=== PATIENT | male | born 1960 | race Caucasian/White ===

== ENCOUNTER 2016-06-07 13:19 | Emergency (ER) | payer MEDICAID ==
[2016-05-14 00:59] VITALS: BMI 26.9
[~2016-06-07 13:19] MED LIST: ASPIRIN81 MG PO; BAYER CHEWABLE81 MG PO; DULERA 100 MCG8.8 GM INH; HEMOCYTE PLUS C1 CAP PO; HYDRALAZINE HCL25 MG PO; HYDROCODONE-APA1 TAB PO; INHALER; IPRAT-ALBUT 0.5-3 ML INH; LASIX40 MG PO; LEVAQUIN750 MG PO; LISINOPRIL10 MG PO; MEDROL DOSE PACK4 MG PO; METOPROLOL TART50 MG; METOPROLOL TART50 MG PO; NITROSTAT0.4 MG SL; PLAVIX75 MG PO; PRAVASTATIN SOD10 MG PO; PROTONIX40 MG PO; TRAZODONE HCL50 MG PO; ZESTORETIC 20/21 TAB PO; ZPAK PO
[2016-06-07 15:04] LABS: BASOPHILS 0.4 % (0.0-2.0); EOSINOPHILS 3.6 % (0-7); HEMATOCRIT 40.2 % (42.0-54.0); HEMOGLOBIN 13.7 g/dL (13.5-17.5); IMMATURE GRANULOCYTES 0.1 % (0-5); LYMPHOCYTES 36.5 % (15-50); MCH 29.5 pg (26.0-34.0); MCHC 34.1 g/dL (31.0-37.0); MCV 86.5 fL (80.0-100.0); MEAN PLATELET VOLUME 10.1 fL (7.4-10.4); MONOCYTES 7.5 % (2-11); NEUTROPHILS 51.9 % (40-80); PLATELET COUNT 272 10x3/uL (130-400); RBC 4.65 10x6/uL (4.20-6.10); RDW 14.8 % (11.5-14.5); WBC 7.5 10x3/uL (4.8-10.8)
[2016-06-07 15:24] LABS: ALBUMIN 3.5 g/dL (3.4-5.0); ALKALINE PHOSPHATASE 52 U/L (46-116); ALT (SGPT) 26 U/L (10-68); BILIRUBIN - TOTAL 0.31 mg/dL (0.2-1.3); CALC OSMOLALITY 285 mosm/kg (275-300); CALCIUM 9.1 mg/dL (8.5-10.1); CARBON DIOXIDE 22.9 mmol/L (21.0-32.0); CHLORIDE - SERUM 106 mmol/L (98-107); CREATININE - SERUM 1.7 mg/dL (0.6-1.3); GLUCOSE 106 mg/dL (74-106); POTASSIUM - SERUM 4.1 mmol/L (3.5-5.1); PROTEIN - SERUM 7.1 g/dL (6.4-8.2); SODIUM 139 mmol/L (136-145); UREA NITROGEN 34 mg/dL (7-18); eGFR NON AFRICAN AMERICAN 45 mL/min (90-120)
[2016-06-07 15:28] LABS: TROPONIN-I < 0.017 ng/mL (0.000-0.060)
== END 2016-06-07 16:45 | disposition home or self-care (01) ==
LOC: D.ER 13:19
PROVIDERS: Emergency Medicine
DX: I95.9 Hypotension, unspecified (principal); Z95.1 Presence of aortocoronary bypass graft; I10 Essential (primary) hypertension; I25.10 Atherosclerotic heart disease of native coronary artery without angina pectoris; J44.9 Chronic obstructive pulmonary disease, unspecified

== ENCOUNTER 2016-06-23 17:40 | Observation (INO) | payer MEDICAID ==
[~2016-06-23] VITALS: Ht 180.3 cm; Wt 90.6 kg
--- NOTE | ~2016-06-23 | HEMODYNAMI ---
PATIENT:BAM DUNN MEDICAL RECORD: [id number] : 60 [id number] ADMISSION DATE: 06/23/16 Generatedon:06/24/201613:40 Patient name: BAM DUNN Patient #: [id number] SSN: DO B: 1960 Date of study: 06/24/2016 Page: Of Hemodynamic Procedure Report Patient Data Patient Demographics Procedure consent was obtained First Name: BAM Gender: Male Last Name: SHAUN : 1960 Middle Initial: D Age: 55 year(s) Patient #: [id number] Race: Additional ID: [id number] Contact details Address: [address] [address] State: [place] City: [place] Zip code: [address] Past Medical History Allergies: No known allergies Admission Admission Data Admission Date: 06/23/2016 Admission Time: 19:30 Room #: D.2115 Lab Results Lab Result Date: 06/24/2016 Lab Result Time: 0:00 Biochemistry Name Units Result Min Max BUN mg/dl 23 --(----)-* 7 18 Creatinine mg/dl 1.3 --(---*)-- 0.6 1.3 CBC Name Units Result Min Max Hemoglobin g/dl 13.7 --(*---)-- 13.5 17.5 Procedure Procedure Types Cath Procedure Diagnostic Procedure C C w/Coronaries w/Grafts Procedure Description Procedure Date Procedure Date: 06/24/2016 Procedure Start Time: 13:27 Procedure End Time: 13:37 Procedure Staff Name Function Rolando Zamora MD Performing Physician Ranjana Field RT Scrub Annie Davis RN Nurse Arsen Harris RT Network Security Consultant Grace Marin RT Monitor Procedure Data Cath Procedure Fluoroscopy Diagnostic fluoroscopy Total fluoroscopy Time: 3.1 time: 3.1 min min Diagnostic fluoroscopy Total fluoroscopy dose: 579 dose: 579 mGy mGy Contrast Material Contrast Material Type Amount (ml) Isovue 300 92 Entry Location Entry Primary Successful Side Size Upsize Upsize Entry Closure Succes sful Closure Location (Fr) 1 (Fr) 2 (Fr) Remarks Device Remarks Femoral Right 6 Fr Exoseal artery Short Estimated blood loss: 10 ml Diagnostic catheters Device Type Used For End Catheter Placement Cordis 5Fr JL 4.0 Procedure Catheter (MP) Cordis 5Fr 3DRC Catheter Procedure (MP) Cordis 5Fr Pigtail LV Angiography Catheter (MP) Procedure Complications No complications Procedure Medications Medication Administration Route Dosage Oxygen NC 2 l/min Heparin Flush Bag added to field 2 bags (1000units/500ml NS) Lidocaine 2% added to field 20 Versed I.V. 1 mg Fentanyl I.V. 50 mcg Versed I.V. 1 mg Fentanyl I.V. 50 mcg Fentanyl I.V. 50 mcg Fentanyl I.V. 50 mcg Hemodynamics Rest Heart Rate: 78 (bpm) Pressure Samples Time Site Value (mmHg) Purpose Heart Use Rate(bpm) 13:34 LV 126/14,21 Snapshot 78 13:35 AO 118/74(92) Pullback 78 13:35 LV 117/12,20 Pullback 78 Gradients Valve Time Site 1 Site 2 Mean SEP/DFP Peak To Heart Use (mmHg) (sec/min) Peak Rate (mmHg) (bpm) Aortic 13:35 LV AO 0 18 0 78 117/12,20 118/74(92) Calculations Valve P-P Mean Valve Index Valve Source Name Gradient Area Flow (cm2) Aortic 0 0 0 0 Snapshots Pre Cath Intra NCS Post Cath Vital Signs Time Heart Resp SPO2 NIBP (mmHg) Rhythm Pain Sedation Rate (ipm) (%) Status Level (bpm) 12:39:44 77 13 98 152/109(137) NSR 0 (11) 10(A) , No pain 12:43:58 76 15 97 149/107(136) NSR 0 (11) 10(A) , No pain 12:48:12 76 18 98 145/98(125) NSR 0 (11) 10(A) , No pain 12:52:22 74 15 97 132/93(107) NSR 0 (11) 10(A) , No pain 12:56:32 71 14 97 137/90(106) NSR 0 (11) 10(A) , No pain 13:00:46 71 16 96 127/85(104) NSR 0 (11) 10(A) , No pain 13:04:53 71 16 96 126/90(104) NSR 0 (11) 10(A) , No pain 13:09:03 74 16 95 126/80(108) NSR 0 (11) 10(A) , No pain 13:13:09 76 16 95 114/92(106) NSR 0 (11) 10(A) , No pain 13:17:11 73 16 95 125/91(106) NSR 0 (11) 10(A) , No pain 13:21:19 74 16 95 114/84(96) NSR 0 (11) 9(A) , No pain 13:25:24 75 15 96 120/79(104) NSR 0 (11) 9(A) , No pain 13:29:28 74 15 98 119/93(107) NSR 0 (11) 9(A) , No pain 13:33:34 78 15 97 119/83(100) NSR 0 (11) 9(A) , No pain 13:36:59 77 12 96 114/89(105) NSR 0 (11) 9(A) , No pain Medications Time Medication Route Dose Verified Delivered Reason Notes Effec tiveness by by 12:43:05 Oxygen NC 2 Rolando Annie Per l/min St. Rafa Davis RN physician 12:43:13 Heparin Flush added 2 Rolando Rolando used for Bag to bags [facility] procedure (1000units/500ml field MD BENEDICT NS) 12:43:20 Lidocaine 2% added 20ml Rolando Rolando used for to vial Pattison Pattison procedure field MD BENEDICT 13:16:32 Versed I.V. 1 mg Rolando Annie for PattisonRafa Davis RN sedation 13:16:39 Fentanyl I.V. 50 Rolando Annie for mcg PattisonRafa Davis RN sedation 13:18:38 Versed I.V. 1 mg Rolando Annie for PattisonRafa Davis RN sedation 13:18:45 Fentanyl I.V. [address] for mcg [address] Rafa Davis RN sedation 13:20:53 Fentanyl I.V. 50 Rolando Annie for mcg PattisonRafa Davis RN sedation 13:24:41 Fentanyl I.V. 50 Rolando Annie for [facility] [place] [facility]. Rafa Davis RN sedation Procedure Log Time Note 11:50:42 Arsen Harris RT(R) sent for patient. Start room use. 12:03:06 Procedure type changed to Cath procedure, Diagnostic procedure, LHC, LHC w/Coronaries w/Grafts 12:03:38 ACC Patient presents with Unstable Angina CCS Anginal Class 3--Marked limitation of physical activity, angina occurs with ordinary activity.. 12:03:40 Diagnostic Cath status Urgent 12:03:50 Time tracking: Regular hours 12:03:54 Plan of Care:Hemodynamics will remain stable., Cardiac rhythm will remain stable., Comfort level will be maintained., Respiratory function will remain adequate., Patient/ family verbilizes understanding of procedure., Procedure tolerated without complication., Recovers from procedure without complications.. 12:35:15 Patient received from Med II to CCL 1 Alert and oriented. Tansferred to table in Supine position. 12:35:16 Warm blankets applied, and khadar hugger turned on for patient comfort. 12:35:16 Correct patient and procedure confirmed by team. 12:35:19 Signed procedure consent form obtained from patient. 12:35:25 H&P Date Dictated: 06/24/2016 Within 30 days and on chart.. 12:35:27 Pre-procedure instructions explained to patient. 12:35:30 Family in waiting room. 12:35:33 Patient NPO since Midnight. 12:35:42 Patient allergic to No known allergies 12:35:46 Is the patient allergic to Iodine/contrast media? No. 12:35:52 Was the patient premedicated? No 12:35:54 Is patient on blood thinner?Yes 12:35:58 ACC The patient was administered the following blood thiners within the last 24 hours: ACCPlavix 12:36:03 Patient diabetic? No. 12:36:47 Snore? Yes 12:36:49 Sleep apnea? No 12:36:50 Deviated septum? No 12:36:52 Opens mouth fully? Yes 12:36:58 Airway obstruction? Yes COPD 12:38:37 Vital chart was started 12:40:03 Patient pain scale 0/10 ?. 12:40:14 IV patent on arrival in left forearm with 0.9% NaCl at [facility]. 12::23 Lab Result : Creatinine 1.3 mg/dl 12:: Lab Result : BUN 23 mg/dl 12:: Lab Result : Hemoglobin 13.7 g/dl 12:42:28 Lab results completed and on chart. 12:42:33 Right groin area was prepped with chlora-prep and draped in sterile fashion 12:42:36 Physician paged 12:43:05 Oxygen 2 l/min NC was given by Annie Davis RN; Per physician; 12:43:13 Heparin Flush Bag (1000units/500ml NS) 2 bags added to field was given by Rolando Zamora MD; used for procedure; 12:43:20 Lidocaine 2% 20ml vial added to field was given by Rolando Zamora MD; used for procedure; 12:53:22 Zero performed for pressure channel P1 13:16:05 Physician arrived 13:16:06 --------ALL STOP TIME OUT------ 13:16:07 Final Timeout: patient, procedure, and site verified with staff and physician. All members of the team are in agreement. 13:16:09 Right groin site verified by team. 13:16:14 Physical assessment completed. ASA score P 2 - A patient with mild systemic disease as per Rolando Zamora MD. 13:16:19 Sedation plan: IV Moderate Sedation Versed, Fentanyl 13:16:32 Versed 1 mg I.V. was given by Annie Davis RN; for sedation; 13:16:39 Fentanyl 50 mcg I.V. was given by Annie Davis RN; for sedation; 13:18:38 Versed 1 mg I.V. was given by Annie Davis RN; for sedation; 13:18:45 Fentanyl 50 mcg I.V. was given by Annie Davis RN; for sedation; 13:20:53 Fentanyl 50 mcg I.V. was given by Annie Davis RN; for sedation; 13:24:41 Fentanyl 50 mcg I.V. was given by Annie Davis RN; for sedation; 13:26:23 Zero performed for pressure channel P1 13:26:55 Use device set Femoral Dx 13:26:56 Acist Syringe opened to sterile field. 13:26:57 Bag Decanter opened to sterile field. 13:26:57 Cardinal Cath Pack opened to sterile field. 13:26:57 Terumo 5Fr [place] Sheath opened to sterile field. 13:26:58 St Erik 260cm J .035 wire opened to sterile field. 13:27:02 Acist Hand Control opened to sterile field. 13:27:03 Acist Manifold opened to sterile field. 13:27:03 Cordis Infinity 5Fr Multipack catheter opened to sterile field. 13:27:06 Tegaderm 4 x 4 opened to sterile field. 13:27:08 Procedure started. 13:27:09 Full Disclosure recording started 13:27:28 Local anesthetic to right femoral artery with Lidocaine 2% by Rolando Zamora MD.INITIAL ACCESS ONLY 13:27:38 A 6 Fr Short sheath was inserted into the Right Femoral artery 13:27:48 A Cordis 5Fr JL 4.0 Catheter (MP) was advanced over the wire and used for Procedure. 13:27:50 LCA angiography performed. 13:29:16 Catheter removed. 13:29:22 A Cordis 5Fr 3DRC Catheter (MP) was advanced over the wire and used for Procedure. 13:29:34 RCA angiography performed. 13:30:17 SVG to Circ angiography performed. 13:30:56 SVG to Diag angiography performed. 13:31:57 SVG to RCA occluded. 13:32:50 LOPEZ to LAD angiography performed. 13:33:38 Catheter removed. 13:33:46 A Cordis 5Fr Pigtail Catheter (MP) was advanced over the wire and used for LV Angiography. 13:33:54 LV gram done using CAMPOS 13:33:55 LV hemodynamics recorded. 13:35:09 EF : 55 % 13:35:13 Catheter removed. 13:35:23 Cordis 5Fr Exoseal opened to sterile field. 13:35:42 Sheath removed intact; hemostasis achieved with Exoseal to the Right Femoral artery. 13:35:45 Procedure ended.(Physican Out) 13:36:15 Fluoroscopy time 03.10 minutes. 13:36:21 Fluoroscopy dose: 579 mGy 13:36:21 Flurop Dose total: 579 13:36:40 Contrast amount:Isovue 300 92ml. 13:36:42 Sharps counted by scrub and verified by R.N. 13:36:47 Post-op/insertion site Right Femoral artery dressed using a 4 x 4 and Tegaderm. 13:36:50 Post Procedure Pulses reassessed and unchanged 13:36:53 Post-procedure physical assessment completed. ASA score P 2 - A patient with mild systemic disease as per Rolando Zamora MD. 13:36:56 Post procedure rhythm: unchanged. 13:37:03 Estimated blood loss: 10 ml 13:37:04 Post procedure instruction explained to patient.Patient verbalizes understanding. 13:37:05 Procedure and supply charges have been captured, reviewed, submitted and are correct. 13:37:26 Procedure Complication : No complications 13:37:30 Vital chart was stopped 13:37:35 See physician's report for complete and final results. 13:37:41 Report given to Med II. 13:37:47 Patient transfered to [facility] II with Bed. 13:37:49 Procedure ended. 13:37:49 Full Disclosure recording stopped 13:37:57 End room use (Document Last) Device Usage Item Name Manufacture Quantity Catalog Hospital Part Current Minimal Lo t# / Number Charge Number Stock Stock Serial# Code Acist Acist 1 12387 157432 262280 514826 20 Syringe Medical Systems Inc Bag Microtek 1 2002S 360699 49722 163728 5 Decanter Medical Inc. Cardinal Cardinal 1 [id number] 553752 01448 477106 5 Cath Pack Health Terumo Terumo 1 [id number] 388286 751087 059390 [address] [place] Sheath [address] Erik St Erik 1 871285 592775 460824 933338 30 260cm J .035 wire Acist Acist 1 90963 143806 077413 947084 5 Hand Medical Control Systems Inc Acist Acist 1 72325 117097 464710 633880 5 Manifold Medical Systems Inc Cordis Cardinal 1 FR6205 552800 00249 715294 30 Porphyrioity Health 5Fr Multipack catheter Tegaderm 3M 1 1626W 720516 797097 536624 5 4 x 4 Cordis Cardinal 1 526268 5 5Fr JL Health 4.0 Catheter (MP) Cordis Cardinal 1 029334 5 5Fr 3DRC Health Catheter (MP) Cordis Cardinal 1 533395 5 5Fr Health Pigtail Catheter (MP) Cordis Cardinal 1 EX500 698072 004664 722004 10 5Fr Health Exoseal Signature Audit [place] Stage Time Signature Unsigned Intra-Procedure 06/24/2016 Grace Marin 1:40:43 PM RT(R) Signatures Monitor : Grace Marin Signature : RT Date : Time : [id number] [place] [address]
[2016-06-23 18:22] LABS: BASOPHILS 0.5 % (0.0-2.0); EOSINOPHILS 1.7 % (0-7); HEMATOCRIT 43.5 % (42.0-54.0); HEMOGLOBIN 14.8 g/dL (13.5-17.5); IMMATURE GRANULOCYTES 0.2 % (0-5); LYMPHOCYTES 40.7 % (15-50); MCH 29.8 pg (26.0-34.0); MCV 87.7 fL (80.0-100.0); MONOCYTES 8.3 % (2-11); NEUTROPHILS 48.6 % (40-80); PLATELET COUNT 252 10x3/uL (130-400); RBC 4.96 10x6/uL (4.20-6.10); RDW 13.5 % (11.5-14.5); WBC 9.3 10x3/uL (4.8-10.8)
[2016-06-23 18:41] LABS: ALBUMIN 3.7 g/dL (3.4-5.0); ALKALINE PHOSPHATASE 58 U/L (46-116); ALT (SGPT) 23 U/L (10-68); BILIRUBIN - TOTAL 0.15 mg/dL (0.2-1.3); CALC OSMOLALITY 287 mosm/kg (275-300); CALCIUM 9.3 mg/dL (8.5-10.1); CARBON DIOXIDE 24.5 mmol/L (21.0-32.0); CHLORIDE - SERUM 106 mmol/L (98-107); CREATININE - SERUM 1.4 mg/dL (0.6-1.3); GLUCOSE 90 mg/dL (74-106); POTASSIUM - SERUM 3.9 mmol/L (3.5-5.1); PROTEIN - SERUM 7.2 g/dL (6.4-8.2); SODIUM 143 mmol/L (136-145); UREA NITROGEN 20 mg/dL (7-18); eGFR NON AFRICAN AMERICAN 56 mL/min (90-120)
[2016-06-23 18:44] LABS: CREATINE KINASE 74 UL (21-232); TROPONIN-I < 0.017 ng/mL (0.000-0.060)
--- NOTE | 2016-06-23 19:45 | NUR ---
REPORT RECEIVED FROM [facility].
[2016-06-23 20:00] VITALS: BP 136/92
--- NOTE | 2016-06-23 20:24 | NUR ---
ARRIVED TO FLOOR VIA WHEELCHAIR, RESPIRATIONS EVEN AND UNLABORED ON 2LPM VIA NC. PLACED ON TELEMETRY 85 SR. ORIENTED TO UNIT, NO NEEDS VOICED AT THIS TIME. WILL CONTINUE TO MONITOR. SEE NURSE ASSESSMENT.
[2016-06-23 23:15] VITALS: BP 136/92; Ht 180.3 cm; Wt 90.6 kg
[2016-06-24] VITALS: BP 116/77
--- NOTE | 2016-06-24 03:19 | NUR ---
VP INFORMATION TECHNOLOGY AT BEDSIDE TO OBTAIN VITALS, CALL LIGHT IN REACH. WILL CONTINUE WITH PLAN OF CARE.
[2016-06-24 04:00] VITALS: BP 146/87
--- NOTE | 2016-06-24 06:28 | NUR ---
CARDIAC ENZYMES HAVE REMAINED NEGATIVE, WILL CONTINUE TO MONITOR.
[2016-06-24 07:26] VITALS: BP 131/96
--- NOTE | 2016-06-24 09:58 | NUR ---
TELEMETRY SR. NPO FOR [facility]. AT BS. WILL CONT. PLAN OF CARE.
[2016-06-24 10:28] LABS: BASOPHILS 0.5 % (0.0-2.0); EOSINOPHILS 1.8 % (0-7); HEMOGLOBIN 13.7 g/dL (13.5-17.5); IMMATURE GRANULOCYTES 0.1 % (0-5); LYMPHOCYTES 36.1 % (15-50); MCH 29.6 pg (26.0-34.0); MCHC 33.4 g/dL (31.0-37.0); MCV 88.6 fL (80.0-100.0); MEAN PLATELET VOLUME 10.5 fL (7.4-10.4); MONOCYTES 7.4 % (2-11); NEUTROPHILS 54.1 % (40-80); PLATELET COUNT 249 10x3/uL (130-400); RBC 4.63 10x6/uL (4.20-6.10); RDW 13.6 % (11.5-14.5); WBC 7.8 10x3/uL (4.8-10.8)
--- NOTE | 2016-06-24 10:34 | NUR ---
RATIONALE FOR SCD'S EXPLAINED. REFUSES SCD'S
[2016-06-24 10:59] LABS: ANION GAP 14.7 mmol/L (8-16); CALCIUM 8.8 mg/dL (8.5-10.1); CARBON DIOXIDE 23.4 mmol/L (21.0-32.0); CREATININE - SERUM 1.3 mg/dL (0.6-1.3); POTASSIUM - SERUM 4.1 mmol/L (3.5-5.1)
[2016-06-24 12:04] VITALS: BP 115/80
--- NOTE | 2016-06-24 12:30 | NUR ---
PRE-OPS GIVEN. TO DRYWALL STRIPPER BY BED.
--- NOTE | 2016-06-24 14:06 | NUR ---
BACK FROM NATURAL DEVELOPER. VS WNL. RIGHT GROIN STABLE WITHOUT BLEEDING OR HEMATOMA NOTED. WILL MONITOR.
--- NOTE | 2016-06-24 15:56 | NUR ---
BED REST UP. GROIN STABLE.
[2016-06-24 16:00] VITALS: BP 144/81
--- NOTE | 2016-06-24 18:01 | NUR ---
IV AND TELEMETRY DCD. DC PLANS GIVEN. UNDERSTANDING VOICED. ESCORTED TO CAR BY W/C.
--- NOTE | 2016-06-27 13:25 | OP ---
PATIENT NAME: BAM DUNN MEDICAL RECORD: [id number] :60 LOCATION:D.M2 D.2115 ADMISSION DATE:06/23/16 SURGEON: HUMBERTO BURGOS MD DATE OF OPERATION: 06/24/2016 PROCEDURE: Left heart catheterization, selective coronary angiography, right femoral approach. CATHETERS: A 5-Prydeinig sheath, 5/4 left and right Tri, 5/4 pig. The procedure was tolerated. patient returned to almendarez, sheath removed. ExoSeal device was placed. FINDINGS: Left ventriculography in 30-degree CAMPOS view shows global hypokinesis. Normal systolic function. CORONARY ANATOMY: Left main: Left main disease. LAD, LAD: The LAD seen floating distally via competitive flow from the LOPEZ. CIRCUMFLEX: Circumflex totally occluded. RIGHT CORONARY ARTERY: Has a tight stenosis mid portion. BYPASS GRAFTS. 1. LOPEZ to LAD is patent with some competitive flow via the little river LAD itself. Saphenous vein graft to circumflex lateral system is widely patent throughout its course without evidence of post-anastomotic stenosis. Saphenous vein graft to the diagonal is widely patent throughout its course. Stent in the little river diagonal was widely patent. Saphenous graft to the right is widely patent throughout its course. IMPRESSION: No evidence for ischemia causing chest pain. Dyspnea appears to be out of proportion in this coronary anatomy, efforts at improving pulmonary function, etc. TRANSINT:[id number] Voice Confirmation ID: [id number] DOCUMENT ID: [id number] HUMBERTO BURGOS MD at 1325 CC: [id number] DICTATION DATE: 06/24/16 1355 BUSINESS CONTINUITY MANAGER: 06/24/16 2204 DIS IN 06/24/16 [facility] [address] [place] [address]
--- NOTE | 2016-06-27 13:25 | HP ---
PATIENT: BAM IQBAL MEDICAL RECORD: [id number] ACCOUNT: [id number] LOCATION:[facility].2115 : 60 ADMISSION DATE: 06/23/16 HISTORY AND PHYSICAL EXAMINATION HISTORY OF PRESENT ILLNESS: Bam Iqbal is a 55-year-old gentleman with a known history of coronary artery disease, status post intervention to the diagonal via Dr. Villalta through saphenous vein graft. Has chest pain at this time, actually has had one admission, both typical and atypical features. He had a chronic dyspnea that gets worse with pain. Enzymes were negative. We are asked to see him concerning his cardiovascular status. PAST MEDICAL HISTORY: Includes; 1. History of hypertension. 2. Obstructive pulmonary disease. 3. Dyslipidemia. 4. function. 5. Gastroesophageal reflux disease. ALLERGIES: None known. MEDICATIONS: Include; 1. Protonix 40 daily. 2. Dulera one puff b.i.d.. 3. Trazodone 50 q.h.s. 4. Pravastatin 10 daily. 5. Metoprolol 50 daily. 6. Hydralazine 25 b.i.d. 7. Lisinopril/HCT 20/25 daily. 8. Plavix 75 daily. 9. DuoNeb q.6 hours. SOCIAL HISTORY: Lives here in [place]. He does smoke. He is able to take care of all the ADLs. No set exercise program. REVIEW OF SYSTEMS: The patient reports easy bruising but reports no swollen glands. The patient reports no fever, no night sweats, no significant weight gain, no significant weight loss. No significant exercise tolerance. The patient reports no dry eyes, no irritation, no vision change. Patient reports no difficulty hearing and no ear pain. Patient reports no frequent nose bleeds or nose and sinus problems. Patient reports on arm pain on exertion. No shortness of breath while lying down. No history of heart murmur. Patient reports no cough, no wheezing or coughing up blood. Patient reports no abdominal pain, no vomiting. Normal appetite. No diarrhea and not vomiting blood. No nausea and no constipation. Patient reports no incontinence. No difficulty urinating. No hematuria. No increased frequency. Patient reports no muscle aches. No weakness, no arthralgias, no back pain. No swelling of the extremities. Patient reports no abnormal mole, no jaundice, no rashes. Reports no loss of consciousness. No weakness and no numbness. No seizures, dizziness, or headaches. The patient reports no depression, no sleep disturbance, feeling safe in a relationship and no alcohol abuse. Patient reports on fatigue. Reports no runny nose or sinus pressure. No itching, no hives, and no frequent sneezing. PHYSICAL EXAMINATION: HISTORY AND PHYSICAL [id number] BAM IQBAL GENERAL: Pleasant gentleman in no acute distress. VITAL SIGNS: Blood pressure 131/96, pulse 75 and regular. HEENT: Normocephalic and atraumatic. NECK: No JVD or bruit. HEART: Regular. LUNGS: Garcia clear. ABDOMEN: Soft, nontender. EXTREMITIES: Pulse 2+. No edema. NEUROLOGIC: Grossly intact. DIAGNOSTIC DATA: ECG shows no acute change. IMPRESSION: At this point in time given the second admission, may be a component of apprehension. We will plan for diagnostic angiography to assess previously placed stent. TRANSINT:[id number] Voice Confirmation ID: [id number] DOCUMENT ID: [id number] HUMBERTO BURGOS MD at 1325 CC: [id number] DICTATION DATE: 06/24/16 0845 PRINT WASHER: 06/24/16 1757 DIS IN 06/24/16 [id number] [place] [address]
--- NOTE | 2016-07-04 13:50 | HP ---
PATIENT: BAM DUNN MEDICAL RECORD: [id number] ACCOUNT: [id number] LOCATION:[address] : 60 ADMISSION DATE: 06/23/16 HISTORY AND PHYSICAL EXAMINATION DATE OF ADMISSION: 06/23/2016. CHIEF COMPLAINT: Chest pain and shortness of breath. HISTORY OF PRESENT ILLNESS: This is a 55-year-old white male with a known history of coronary artery disease and also COPD. He is followed by [facility] for the heart and Dr. Dunham, I believe, for his lungs. He came in with worsening shortness of breath, dizziness and chest pain over the last few days, it really got worse yesterday, he was driving his car and he felt very short of breath, today he is less short of breath with more chest pain. The pain is a pressure, substernal. No nausea, no vomiting and no diaphoresis, did not radiate out to an arm. He does have an appointment with book sewing machine operator on June 30 for more testing of his lung function. PAST MEDICAL AND SURGICAL HISTORY: Coronary artery disease with 4-vessel CABG [address] Dr. Daley in November 2015 and stents prior to that, he has also had stents since then just last month, he has hypertension, COPD and has had a tonsillectomy. SOCIAL HISTORY: He is , currently unemployed. HABITS: Former smoker. No alcohol or drugs. FAMILY HISTORY: Mother with hypertension, diabetes and a stroke. Brother with hypertension and diabetes. REVIEW OF SYSTEMS: GENERAL: No major weight changes. HEENT: No particular sinus or allergy problems. RESPIRATORY: No history of pneumonia, but he has had emphysema. CARDIAC: See above history with his heart disease. GASTROINTESTINAL: Denies diarrhea, constipation, or heartburn. GENITOURINARY: No significant problems there. MUSCULOSKELETAL: No significant joint aches and pains. NEUROLOGIC: No headaches, no migraines or seizures. PSYCHIATRIC: Denies depression or melancholia. PHYSICAL EXAMINATION: VITAL SIGNS: Temperature 97.3, pulse 79, respirations 16 and blood pressure 144/80. GENERAL: He is awake and alert, does not appear in acute distress at this time. HEENT: Unremarkable. NECK: Supple. No JVD or bruit. HEART: Regular rate and rhythm without murmur. LUNGS: Fairly clear. ABDOMEN: Soft, flat and nontender. EXTREMITIES: No edema. LABORATORY DATA: His troponin was less than 0.017. CBC with a white count of 7800, hemoglobin 13.7, hematocrit of 41.0 and platelets 249,000. Basic HISTORY AND PHYSICAL [id number] BAM DUNN metabolic panel is okay except BUN a little high at 23, creatinine was normal at 1.3. Liver functions are fine. All cardiac enzymes have been okay. Chest x-ray was done last evening showing chronic and old postoperative changes, elevated left hemidiaphragm, a little more prominent atelectasis in the right lung base compared to previous. ASSESSMENT: 1. Chest pain in a patient with known history of heart disease. 2. Shortness of breath in a patient with known history of chronic obstructive pulmonary disease. PLAN: Cardiology has been consulted. He will be going to the lab[facility]. Other tests and procedures as warranted. TRANSINT:[id number] Voice Confirmation ID: [id number] DOCUMENT ID: [id number] POLINA TEJEDA MD at 1350 CC: [id number] DICTATION DATE: 06/24/16 1314 SR. MANAGER: 06/24/16 1337 DIS IN 06/24/16 [facility] [address] [id number]
== END 2016-06-24 18:01 | disposition home or self-care (01) ==
LOC: D.ER 17:40 → D.M2 19:30 → OBSVTIME 19:30 → D.M2 06-24 18:01
PROVIDERS: Emergency Medicine; Internal Medicine Interventional Cardiology; ADMIT Family Medicine
DX: I25.10 Atherosclerotic heart disease of native coronary artery without angina pectoris (principal); Z95.5 Presence of coronary angioplasty implant and graft; Z95.1 Presence of aortocoronary bypass graft; I10 Essential (primary) hypertension; J44.9 Chronic obstructive pulmonary disease, unspecified; K21.9 Gastro-esophageal reflux disease without esophagitis; Z72.0 Tobacco use

== ENCOUNTER → 2016-07-07 12:40 | Outpatient (CLI) | payer MEDICAID ==
[2016-06-23 23:15] VITALS: BMI 27.8
[~2016-07-07 12:40] MED LIST changes: +ISOSORBIDE MONO30 M1 PO; +NITRO-DUR0.4 MG TRANSDERM; +SYMBICORT 16010.2 GM INH; +XANAX0.25 MG PO
== END | disposition home or self-care (01) ==
LOC: D.RT 10:00
DX: J44.9 Chronic obstructive pulmonary disease, unspecified (principal)

== ENCOUNTER 2016-07-29 19:40 | Observation (INO) | payer MEDICAID ==
[~2016-07-29] VITALS: Ht 180.3 cm; Wt 89.8 kg
--- NOTE | ~2016-07-29 | HEMODYNAMI ---
PATIENT:BAM DUNN MEDICAL RECORD: [id number] : 60 LOCATION:[facility] D.[address] [id number] ADMISSION DATE: 07/29/16 Generatedon:07/30/201610:09 Patient name: BAM DUNN Patient #: [id number] SSN: DO B: 1960 Date of study: 07/30/2016 Page: Of Hemodynamic Procedure Report Patient Data Patient Demographics Procedure consent was obtained First Name: BAM Gender: Male Last Name: SHAUN : 1960 Middle Initial: D Age: 55 year(s) Patient #: [id number] Race: Additional ID: [id number] Contact details Address: [address] [address] State: [place] City: [place] Zip code: [address] Past Medical History Allergies: No known allergies Admission Admission Data Admission Date: 07/29/2016 Admission Time: 21:11 Room #: D.2118 Weight (lbs.): 198 Weight (kg.): 89.81 Lab Results Lab Result Date: 07/30/2016 Lab Result Time: 0:00 Biochemistry Name Units Result Min Max BUN mg/dl 22 --(----)-* 7 18 Creatinine mg/dl 1.5 --(----)-* 0.6 1.3 CBC Name Units Result Min Max Hemoglobin g/dl 16 --(--*-)-- 13.5 17.5 Procedure Procedure Types Cath Procedure Diagnostic Procedure LHC LHC w/Coronaries w/Grafts PCI Procedure Coronary Stent Initial Miscellaneous Procedures Moderate Sedation up to 30 minutes Procedure Description Procedure Date Procedure Date: 07/30/2016 Procedure Start Time: 9:39 Procedure End Time: 10:08 Procedure Staff Name Function Rolando Zamora MD Performing Physician Marcy Buckner RT Scrub Annie Davis RN Nurse Arsen Harris RT Monitor Procedure Data Cath Procedure Fluoroscopy Diagnostic fluoroscopy Total fluoroscopy Time: 9.7 time: 9.7 min min Diagnostic fluoroscopy Total fluoroscopy dose: dose: 1007 mGy 1007 mGy Contrast Material Contrast Material Type Amount (ml) Isovue 300 204 Entry Location Entry Primary Successful Side Size Upsize Upsize Entry Closure Succes sful Closure Location (Fr) 1 (Fr) 2 (Fr) Remarks Device Remarks Femoral Right 5 Fr 6 Fr Exoseal artery Short Diagnostic catheters Device Type Used For End Catheter Placement Cordis 5Fr JL 4.0 Left Coronary Catheter (MP) Angiography Cordis 5Fr 3DRC Catheter Right Coronary (MP) Angiography Diagnostic Infinity 5Fr SVG Angiography MPA-2 catheter Diagnostic Infinity 5Fr SVG Angiography AR 2 MOD catheter Cordis 5Fr Pigtail LV Angiography Catheter (MP) Procedure Complications No complications Procedure Medications Medication Administration Route Dosage Oxygen NC 2 l/min Heparin Flush Bag added to field 2 bags (1000units/500ml NS) Lidocaine 2% added to field 20 Versed I.V. 1 mg Fentanyl I.V. 50 mcg Versed I.V. 1 mg Fentanyl I.V. 50 mcg Heparin Bolus I.V. 5000 units Hemodynamics Rest HGB: 16 (g/dl) Heart Rate: 89 (bpm) Pressure Samples Time Site Value (mmHg) Purpose Heart Use Rate(bpm) 9:51 LV 105/14,20 EDP 94 9:52 AO 151/74(89) Pullback 97 9:52 LV 109/9,31 Pullback 97 Gradients Valve Time Site 1 Site 2 Mean SEP/DFP Peak To Heart Use (mmHg) (sec/min) Peak Rate (mmHg) (bpm) Aortic 9:52 LV AO 0 16 0 97 109/9,31 151/74(89) Calculations Valve P-P Mean Valve Index Valve Source Name Gradient Area Flow (cm2) Aortic 0 0 0 0 Snapshots Pre Cath Intra NCS Post Cath Vital Signs Time Heart Resp SPO2 etCO2 VO7pamf NIBP (mmHg) Rhythm Pain Sedation Rate (ipm) (%) (mmHg) (mmHg) Status Level (bpm) 9:22:04 87 15 99 0 0 130/93(113) NSR 0 (11) 10(A) , No pain 9:26:14 88 14 100 0 0 130/81(104) NSR 0 (11) 10(A) , No pain 9:30:24 89 15 98 0 0 125/80(96) NSR 0 (11) 10(A) , No pain 9:34:36 92 16 96 0 0 121/73(100) NSR 0 (11) 10(A) , No pain 9:38:43 88 15 95 0 0 116/77(90) NSR 0 (11) 10(A) , No pain 9:42:51 91 15 96 0 0 126/71(94) NSR 0 (11) 9(A) , No pain 9:47:03 94 14 95 0 0 120/70(94) NSR 0 (11) 9(A) , No pain 9:51:08 93 14 94 0 0 118/77(92) NSR 0 (11) 9(A) , No pain 9:55:14 93 14 95 0 0 123/79(103) NSR 0 (11) 9(A) , No pain 9:59:26 95 15 95 0 0 125/69(96) NSR 0 (11) 9(A) , No pain 10:03:36 92 14 96 0 0 128/78(92) NSR 0 (11) 9(A) , No pain 10:07:44 92 13 97 0 0 127/86(108) NSR 0 (11) 9(A) , No pain Medications Time Medication Route Dose Verified Delivered Reason Notes Effectiveness by by 9:24:56 Oxygen NC 2 Rolando Annie Per physician l/min St. Rafa Davis RN, MD 9:25:03 Heparin Flush added 2 Rolando Rolando used for Bag to bags [facility] procedure (1000units/500ml field MD BENEDICT NS) 9:25:10 Lidocaine 2% added 20ml Rolando Rolando [facility] BENEDICT 9:35:31 Versed I.V. 1 mg Rolando Annie for sedation [facility]. Rafa Davis RN, MD 9:35:37 Fentanyl I.V. 50 Rolando Annie for sedation mcg St. Rafa Davis RN, MD 9:38:41 Versed I.V. 1 mg Rolando Annie for sedation St. Rafa Davis RN, MD 9:38:45 Fentanyl I.V. 50 Rolando Annie for sedation mcg St. Rafa Davis RN, MD 9:54:04 Heparin Bolus I.V. 5000 Rolando Annie for dose units St. Rafa Davis RN anticoagulation verified MD with dr hutchinson Procedure Log Time Note 9:05:15 Arsen Harris RT(R) sent for patient. Start room use. 9:05:17 Time tracking: Regular hours 9:05:21 Plan of Care:Hemodynamics will remain stable., Cardiac rhythm will remain stable., Comfort level will be maintained., Respiratory function will remain adequate., Patient/ family verbilizes understanding of procedure., Procedure tolerated without complication., Recovers from procedure without complications.. 9:14:05 Patient received from PCU to CCL 1 Alert and oriented. Tansferred to table in Supine position. 9:14:07 Warm blankets applied, and khadar hugger turned on for patient comfort. 9:14:08 Correct patient and procedure confirmed by team. 9:14:09 Signed procedure consent form obtained from patient. 9:14:10 ECG and BP/O2 sat monitors applied to patient. 9:14:11 Full Disclosure recording started 9:21:07 Vital chart was started 9:24:56 Oxygen 2 l/min NC was given by Annie Davis RN; Per physician; 9:25:03 Heparin Flush Bag (1000units/500ml NS) 2 bags added to field was given by Rolando Zamora MD; used for procedure; 9:25:08 Baseline sample Acquired. 9:25:10 Lidocaine 2% 20ml vial added to field was given by Rolando Zamora MD; used for procedure; 9:25:31 Rhythm: sinus rhythm 9:25:38 H&P Date Dictated: 07/30/2016 Within 30 days and on chart.. 9:25:39 Pre-procedure instructions explained to patient. 9:25:40 Pre-op teaching completed and patient verbalized understanding. 9:25:41 Family unavailable. 9:25:43 Patient NPO since Midnight. 9:25:50 Patient allergic to No known allergies 9:25:53 Is the patient allergic to Iodine/contrast media? No. 9:25:58 Is patient on blood thinner?Yes 9:26:01 ACC The patient was administered the following blood thiners within the last 24 hours: ACCPlavix 9:26:04 Patient diabetic? No. 9:26:05 ----Pre-sedation anethsthesia assessment.---- 9:26:07 Previous problem with sedation/anesthesia? No ? 9:26:09 Snore? Yes 9:26:14 Sleep apnea? No 9:26:15 Deviated septum? No 9:26:16 Opens mouth fully? Yes 9:26:17 Sticks out tongue? Yes 9:26:21 Airway obstruction? Yes COPD 9:26:26 Dentures? Yes AT HOME 9:26:30 Pre procedure: right dorsailis pedis pulse 1+ Palpable, but thready & weak; easily obliterated 9:26:35 Patient pain scale 0/10 ?. 9:26:39 IV patent on arrival in left wrist with 0.9% NaCl at 10ml/hr. 9:: Lab Result : Creatinine 1.5 mg/dl 9:: Lab Result : BUN 22 mg/dl 9:: Lab Result : Hemoglobin 16 g/dl 9:: Lab results completed and on chart. 9:29:28 Right groin area was prepped with chlora-prep and draped in sterile fashion 9:29:29 Alarms reviewed by R. N. 9:29:29 Sharps counted by scrub and verified by R.N. 9:29:31 Physician paged 9:30:52 Use device set Femoral Dx 9:30:53 Acist Syringe opened to sterile field. 9:30:53 Bag Decanter opened to sterile field. 9:30:53 Medline Cath Pack opened to sterile field. 9:30:54 Terumo 5Fr [place] Sheath opened to sterile field. 9:30:54 St Erik 260cm J .035 wire opened to sterile field. 9:30:55 Acist Hand Control opened to sterile field. 9:30:56 Acist Manifold opened to sterile field. 9:30:56 Diagnostic Infinity 5Fr Multipack catheter opened to sterile field. 9:30:56 Tegaderm 4 x 4 opened to sterile field. 9:33:42 IV Extension Set opened to sterile field. 9:34:35 Patient Weight : 198 lbs 9:34:50 --------ALL STOP TIME OUT------ 9:34:50 Final Timeout: patient, procedure, and site verified with staff and physician. All members of the team are in agreement. 9:34:52 Right groin site verified by team. 9:35:24 Physical assessment completed. ASA score P 2 - A patient with mild systemic disease as per Rolando Zamora MD. 9:35:29 Sedation plan: IV Moderate Sedation Versed, Fentanyl 9:35:31 Versed 1 mg I.V. was given by Annie Davis RN; for sedation; 9:35:37 Fentanyl 50 mcg I.V. was given by Annie Davis RN; for sedation; 9:38:19 Procedure started. 9:38:41 Versed 1 mg I.V. was given by Annie Davis RN; for sedation; 9:38:45 Fentanyl 50 mcg I.V. was given by Annie Davis RN; for sedation; 9:39:27 Local anesthetic to right femoral artery with Lidocaine 2% by Rolando Zamora MD.INITIAL ACCESS ONLY 9:39:35 A 5 Fr sheath was inserted into the Right Femoral artery 9:39:42 A Cordis 5Fr JL 4.0 Catheter (MP) was advanced over the wire and used for Left Coronary Angiography. 9:40:47 LCA angiography performed. 9:40:48 Catheter removed. 9:40:55 A Cordis 5Fr 3DRC Catheter (MP) was advanced over the wire and used for Right Coronary Angiography. 9:42:20 RCA angiography performed. 9:42:25 SVG to Diag angiography performed. 9:42:40 SVG to Circ angiography performed. 9:44:01 LOPEZ to LAD angiography performed. 9:44:56 LOPEZ OCCLUDED 9:44:58 Catheter removed. 9:45:09 A Diagnostic Infinity 5Fr MPA-2 catheter was advanced over the wire and used for SVG Angiography. 9:48:27 Catheter removed. 9:48:42 A Diagnostic Infinity 5Fr AR 2 MOD catheter was advanced over the wire and used for SVG Angiography. 9:48:58 SVG to RCA angiography performed. 9:50:21 Catheter removed. 9:50:27 A Cordis 5Fr Pigtail Catheter (MP) was advanced over the wire and used for LV Angiography. 9:50:30 LV angiography performed. 9:50:32 LV gram done using CAMPOS 9:50:33 LV hemodynamics recorded. 9:50:35 Injector settings: Ml/sec: 10, Volume: 20, 9:52:20 EF : 55 % 9:52:24 Catheter removed. 9:53:04 Terumo 6Fr [place] Sheath opened to sterile field. 9:53:05 Zaragoza Whisper J 300cm 0.014 guide wire opened to sterile field. 9:53:05 Medtronic Launcher 6Fr JL 4.0 guide catheter opened to sterile field. 9:53:06 Sentric Music BasixCompak Inflation Kit opened to sterile field. 9:53:13 ACC PCI Site: Ramus has 80% stenosis. 9:53:16 ACC Pre-intervention KARINA Flow is 3. 9:53:21 Sheath upsized to a 6 Fr Short. 9:53:28 6 Fr JL 4 guide catheter was inserted over the wire 9:54:04 Heparin Bolus 5000 units I.V. was given by Annie Davis RN; for anticoagulation; dose verified with dr hutchinson 9:54:41 WHISPER wire advanced. 9:57:01 Inflation number: 1 A LiveGO Williams 2.5 X 15 balloon was prepped and advanced across the Lat ramus, then inflated to 12 DEION for 0:33 (min:sec). 9:57:21 Balloon removed over the wire. 9:59:35 Procedure type changed to Cath procedure, Diagnostic procedure, LHC, LHC w/Coronaries w/Grafts, PCI procedure, Coronary Stent Initial, Miscellaneous Procedures, Moderate Sedation up to 30 minutes 10:01:41 Inflation Number: 2 A Billdesktronic Integrity 2.5 X 18 stent was prepped and advanced across the Lat ramus. The stent was deployed at 17 DEION for 0:44 (min:sec). 10:02:26 Stent catheter was removed intact over wire. 10:02:26 Wire removed. 10:02:27 Guide catheter removed. 10:02:29 ACC Post-intervention KARINA Flow is 3. 10:02:47 Sheath removed intact; hemostasis achieved with Exoseal to the Right Femoral artery. 10:02:54 Cordis 6Fr Exoseal opened to sterile field. 10:02:56 Procedure ended.(Physican Out) 10:03:18 Contrast amount:Isovue 300 204ml. 10:03:24 Fluoroscopy time 09.70 minutes. 10:03:29 Flurop Dose total: 1007 10:03:29 Fluoroscopy dose: 1007 mGy 10:03:31 Sharps counted by scrub and verified by R.N. 10:03:31 Insertion/operative site no bleeding no hematoma. 10:03:34 Post-op/insertion site Right Femoral artery dressed using a 4 x 4 and Tegaderm. 10:03:37 Post right femoral artery:stable 10:03:38 Post Procedure Pulses reassessed and unchanged 10:03:40 Post procedure: right dorsailis pedis pulse 1+ Palpable, but thready & weak; easily obliterated. 10:03:43 Post procedure rhythm: sinus rhythm 10:03:44 Post procedure instruction explained to patient.Patient verbalizes understanding. 10:04:06 Procedure and supply charges have been captured, reviewed, submitted and are correct. 10:04:11 Procedure Complication : No complications 10:08:32 Vital chart was stopped 10:08:33 See physician's report for complete and final results. 10:08:34 Report given to PCU. 10:08:37 Patient transfered to PCU with Bed. 10:08:39 Procedure ended. 10:08:39 Full Disclosure recording stopped 10:08:43 End room use (Document Last) Intervention Summary Intervention Notes Time ActionType Lesion and Equipment Action# Pressure Duration Attributes Used 9:57:01 Inflate Lat ramus Yatahey 1 12 00:33 balloon Sci Williams 2.5 X 15 balloon 10:01:41 [address] stent Lat ramus Medtronic 2 17 00:44 Integrity 2.5 X 18 stent Device Usage Item Name Manufacture Quantity Catalog Number Hospital Part Current Mini [facility] Lot# / Charge Number Stock Stock Serial# Code Acist Acist 1 [id number] [id number] 015478 814261 20 Syringe Medical Systems Inc Bag Microtek 1 2002S 152931 45918 451595 5 STI Technologies Inc. Medline Cardinal 1 [id number] 167467 79984 205262 5 Cath Pack Stoke Terumo 5Fr Terumo 1 [id number] 502541 177448 892089 [address] Erik 1 432827 149540 046818 067511 30 260cm J .035 wire Acist Hand Acist 1 44957 534316 147517 409355 5 Sitestar Medical Systems Inc Acist Acist 1 19867 687102 973615 898270 5 GroupStream Medical Systems Inc Diagnostic Cardinal 1 [id number] 414979 18848 316795 30 Infinity Health 5Fr Multipack catheter Tegaderm 4 3M 1 1626W 836218 077228 515971 5 x 4 IV Hospira 1 24901-45 135345 42703 497384 5 Extension Set Cordis 5Fr Cardinal 1 291282 5 JL 4.0 Health Catheter (MP) Cordis 5Fr Cardinal 1 208722 5 3DRC Health Catheter (MP) Diagnostic Cardinal 1 [id number] 531298 014735 009297 5 Infinity Health 5Fr MPA-2 catheter Diagnostic Cardinal 1 201515H 598379 880906 622260 20 Infinity Health 5Fr AR 2 MOD catheter Cordis 5Fr Cardinal 1 456367 5 Pigtail Health Catheter (MP) Terumo 6Fr Terumo 1 [id number] 534306 273656 267771 40 [place] Sheath Zaragoza Zaragoza 1 [id number] 722266 377371 842107 5 Whisper J Vascular 300cm 0.014 guide wire Medtronic Medtronic 1 [id number] 786268 24819 835613 1 Launcher 6Fr JL 4.0 guide catheter Merit Merit 1 [id number] 470132 726095 769493 15 Termii webtech limitedixDeskLodgek Medical Inflation Kit Yatahey Sci Yatahey 1 [id number] 385983 727442 145748 1 [id number] Williams Scientific 2.5 X 15 balloon Medtronic Medtronic 1 [id number] 672601 833912 252527 4 [id number] Integrity 2.5 X 18 stent Cordis 6Fr Cardinal 1 EX600 188838 528748 003971 10 Barix [facility] Stoke Signature Audit Gwinn Stage Time Signature Unsigned Intra-Procedure 07/30/2016 Arsen Harris 10:09:25 AM RT(R) Signatures Monitor : Arsen Harris RT Signature : Date : Time : [facility] [address] [facility] [place] [address]
[~2016-07-29 19:40] MED LIST changes: -ISOSORBIDE MONO30 M1 PO; -NITRO-DUR0.4 MG TRANSDERM; -SYMBICORT 16010.2 GM INH; -XANAX0.25 MG PO
[2016-07-29 20:22] LABS: BASOPHILS 0.2 % (0.0-2.0); EOSINOPHILS 1.2 % (0-7); HEMATOCRIT 47.3 % (42.0-54.0); IMMATURE GRANULOCYTES 0.2 % (0-5); LYMPHOCYTES 24.2 % (15-50); MCH 29.3 pg (26.0-34.0); MCHC 33.8 g/dL (31.0-37.0); MCV 86.6 fL (80.0-100.0); MEAN PLATELET VOLUME 10.2 fL (7.4-10.4); MONOCYTES 6.4 % (2-11); NEUTROPHILS 67.8 % (40-80); PLATELET COUNT 226 10x3/uL (130-400); RBC 5.46 10x6/uL (4.20-6.10); RDW 12.8 % (11.5-14.5); WBC 13.1 10x3/uL (4.8-10.8)
[2016-07-29 20:35] LABS: ALBUMIN 4.3 g/dL (3.4-5.0); ALKALINE PHOSPHATASE 57 U/L (46-116); ALT (SGPT) 30 U/L (10-68); BILIRUBIN - TOTAL 0.54 mg/dL (0.2-1.3); CALC OSMOLALITY 285 mosm/kg (275-300); CARBON DIOXIDE 20.8 mmol/L (21.0-32.0); CHLORIDE - SERUM 104 mmol/L (98-107); CREATININE - SERUM 1.5 mg/dL (0.6-1.3); GLUCOSE 90 mg/dL (74-106); POTASSIUM - SERUM 3.4 mmol/L (3.5-5.1); PROTEIN - SERUM 8.1 g/dL (6.4-8.2); SODIUM 142 mmol/L (136-145); UREA NITROGEN 22 mg/dL (7-18); eGFR NON AFRICAN AMERICAN 52 mL/min (90-120)
[2016-07-29 20:48] LABS: CREATINE KINASE 103 UL (21-232)
[2016-07-29 20:57] LABS: TROPONIN-I < 0.017 ng/mL (0.000-0.060)
[2016-07-29 22:53] VITALS: BP 127/76
[2016-07-29] MEDS ORDERED: SYMBICORT 16010.2 GM INH (22:55)
[2016-07-29] MEDS ORDERED: NITRO-DUR0.4 MG TRANSDERM (22:58)
[2016-07-29] MEDS ORDERED: XANAX0.25 MG PO (22:58)
[2016-07-29 22:59] VITALS: BP 127/76; BMI 27.6
[2016-07-29] MEDS ORDERED: ISOSORBIDE MONO30 M1 PO (23:11)
--- NOTE | 2016-07-29 23:35 | NUR ---
PT ARRIVED TO ROOM. ALERT AND ORIENTED. SHIFT ASSESSMENT COMPLETED ALONG WITH ADMISSION WORK-UP. PT HAS L.WRIST PIV WITH DRSG CDI AND SWAB CAPS IN USE. INITIATED NS @100ML/HR PER ORDER, DATED TUBING AND APPLIED SWAB CAPS. APPLIED TELEMETRY. UNIT ORIENTATION COMPLETED AND PT VERBALIZES UNDERSTANDING. PT STILL IN MODERATE PAIN REQUESTING PRN MORPHINE AND WAS PROVIDED WITH IT. PT VOICED THANKS. VSS. WILL CTM.
[2016-07-30 00:59] LABS: CKMB 0.6 U/L (0.0-3.6); CREATINE KINASE 70 UL (21-232); TROPONIN-I < 0.017 ng/mL (0.000-0.060)
--- NOTE | 2016-07-30 01:28 | NUR ---
PT RESTING QUIETLY IN BED WITH EYES CLOSED. RR NONLABORED WITH NC @2L IN PLACE. NO SS OF DISTRESS OR ANY CURRENT NEEDS NOTED AT THIS TIME. CL IN REACH, SPOUSE AT BEDSIDE. WILL CPOC.
[2016-07-30 04:30] VITALS: BP 112/87
[2016-07-30 07:27] LABS: CKMB 0.9 U/L (0.0-3.6); CREATINE KINASE 56 UL (21-232); TROPONIN-I < 0.017 ng/mL (0.000-0.060)
[2016-07-30 07:55] VITALS: BP 111/70
--- NOTE | 2016-07-30 09:08 | NUR ---
TELEMETRY SR. PRE-OPS GIVEN. TO CLEARANCE COORDINATOR BY BED.
[2016-07-30 09:39] LABS: BASOPHILS 0.1 % (0.0-2.0); EOSINOPHILS 0.4 % (0-7); HEMATOCRIT 42.9 % (42.0-54.0); HEMOGLOBIN 14.4 g/dL (13.5-17.5); IMMATURE GRANULOCYTES 0.1 % (0-5); LYMPHOCYTES 14.8 % (15-50); MCH 29.9 pg (26.0-34.0); MCHC 33.6 g/dL (31.0-37.0); MEAN PLATELET VOLUME 10.8 fL (7.4-10.4); MONOCYTES 6.2 % (2-11); NEUTROPHILS 78.4 % (40-80); PLATELET COUNT 201 10x3/uL (130-400); RBC 4.82 10x6/uL (4.20-6.10); RDW 13.2 % (11.5-14.5)
[2016-07-30 09:41] LABS: ANION GAP 16.9 mmol/L (8-16); CALCIUM 8.3 mg/dL (8.5-10.1); CARBON DIOXIDE 20.4 mmol/L (21.0-32.0); CREATININE - SERUM 1.5 mg/dL (0.6-1.3)
[2016-07-30 09:42] LABS: POTASSIUM - SERUM 4.3 mmol/L (3.5-5.1)
[2016-07-30 09:43] LABS: WBC 7.3 10x3/uL (4.8-10.8)
[2016-07-30 10:27] VITALS: Ht 180.3 cm; Wt 89.8 kg
--- NOTE | 2016-07-30 10:28 | NUR ---
BACK FROM PLAYER PIANO TECHNICIAN. VS WNL. RIGHT GROIN STABLE WITHOUT BLEEDING OR HEMATMA NOTED. WILL MONITOR.
[2016-07-30 11:47] VITALS: BP 137/79
[2016-07-30 13:29] LABS: CKMB 0.8 U/L (0.0-3.6); CREATINE KINASE 60 UL (21-232)
--- NOTE | 2016-07-30 14:09 | NUR ---
BED REST UP. GROIN STABLE.
--- NOTE | 2016-07-30 14:15 | NUR ---
IV AND TELEMETRY DCD. DC PLANS GIVEN. UNDERSTANDING VOICED. ESCORTED TO CAR BY W/C.
--- NOTE | 2016-08-01 08:24 | HP ---
PATIENT: BAM DUNN MEDICAL RECORD: [id number] ACCOUNT: [id number] LOCATION:[address] : 60 ADMISSION DATE: 07/29/16 HISTORY AND PHYSICAL EXAMINATION HISTORY OF PRESENT ILLNESS: A 55-year-old gentleman with known history of coronary artery disease, status post coronary artery bypass grafting, has a history of interventions and ____ chest pain that is similar to his previous angina ____. He has also had some GI distress as of late. He also has obstructive pulmonary disease; although his breathing from baseline has been fairly reasonable. Pain has both typical and atypical features. PAST MEDICAL HISTORY: Otherwise includes: 1. History of obstructive pulmonary disease. 2. Dyslipidemia. 3. Gastroesophageal reflux disease. 4. Hypertension. MEDICATIONS: Include Dulera 1 puff b.i.d., trazodone 50 q.h.s., pravastatin 10 q. day, metoprolol 50 q. day, hydralazine 25 b.i.d., lisinopril 20/25 q. day, and Plavix 75 q. day. SOCIAL HISTORY: Lives here in [place]. He does smoke around a pack a day. No set exercise program. He does take care of his ADLs. ALLERGIES: No known allergies. REVIEW OF SYSTEMS: The patient reports easy bruising but reports no swollen glands. The patient reports no fever, no night sweats, no significant weight gain, no significant weight loss. No significant exercise tolerance. The patient reports no dry eyes, no irritation, no vision change. Patient reports no difficulty hearing and no ear pain. Patient reports no frequent nose bleeds or nose and sinus problems. Patient reports on arm pain on exertion. No shortness of breath while lying down. No history of heart murmur. Patient reports no cough, no wheezing or coughing up blood. Patient reports no abdominal pain, no vomiting. Normal appetite. No diarrhea and not vomiting blood. No nausea and no constipation. Patient reports no incontinence. No difficulty urinating. No hematuria. No increased frequency. Patient reports no muscle aches. No weakness, no arthralgias, no back pain. No swelling of the extremities. Patient reports no abnormal mole, no jaundice, no rashes. Reports no loss of consciousness. No weakness and no numbness. No seizures, dizziness, or headaches. The patient reports no depression, no sleep disturbance, feeling safe in a relationship and no alcohol abuse. Patient reports on fatigue. Reports no runny nose or sinus pressure. No itching, no hives, and no frequent sneezing. PHYSICAL EXAMINATION: GENERAL: Pleasant gentleman, currently in no acute distress, somewhat somnolent secondary to morphine. VITAL SIGNS: Blood pressure 111/70 and pulse 86 and regular. HEENT: Normocephalic and atraumatic. NECK: No JVD or bruit. HEART: Regular. LUNGS: Garcia clear. EXTREMITIES: Pulses 2+ with no edema. HISTORY AND PHYSICAL [id number] BAM DUNN DIAGNOSTIC DATA: ECG without acute change. IMPRESSION: 1. Coronary artery disease. 2. Chest pain. 3. Hypertension. 4. Dyslipidemia. Again, both typical and atypical features and within window of restenosis. PLAN: For diagnostic angiography, intervention based on above. TRANSINT:[id number] Voice Confirmation ID: [id number] DOCUMENT ID: [id number] HUMBERTO BURGOS MD at 0824 CC: [id number] DICTATION DATE: 07/30/16 0910 DISPATCHER CHIEF OIL: 07/30/16 1118 DIS IN 07/30/16 [address] [place] [address]
--- NOTE | 2016-08-01 08:24 | OP ---
PATIENT NAME: BAM DUNN MEDICAL RECORD: [id number] :60 LOCATION:D.M2 D.2118 ADMISSION DATE:07/29/16 SURGEON: HUMBERTO BURGOS MD DATE OF OPERATION: 07/30/2016 PROCEDURES: Left heart catheterization, selective coronary angiography, right femoral artery approach. CATHETERS: A 5-German sheath, 5/4 left and right Tri, 5/4 pig. The procedure was tolerated. We proceeded to PTCA stenting the ramus after procedure was finished. FINDINGS: Left ventriculography in the 30-degree CAMPOS view: Normal wall motion and normal systolic function. CORONARY ANATOMY: Left main: Left main is free of disease. LAD: In her previous stenting is widely patent. CIRCUMFLEX: Circumflex is totally occluded, but circ OM system is grafted. There is a ramus intermediate branch has about 80% stenosis, ____vessel. RIGHT CORONARY ARTERY: Totally occluded in its mid portion. SAPHENOUS VEIN GRAFT: Saphenous vein graft to OM system is widely patent without evidence of post-anastomotic stenosis. Saphenous vein graft to right is widely patent. LOPEZ to the LAD is atretic. IMPRESSION: Unstable angina,____ disease of the ramus intermediate. PLAN: Intervention of this vessel momentarily. DESCRIPTION IN DETAIL: A 6-German sheath, JL4 guiding catheter provided good guide catheter support followed by a 300 cm Whisper wire was placed across the tightly 80% stenosed ramus down a portion of this vessel. Pre-deployment balloon used was a 2.5 x 50 mm [place] up to 10 atmospheres, stent placed was a 2.5 x 18 mm Integrity nondrug-eluting stent inflated up to 14 atmospheres for 45 seconds. This shows excellent resolution of 80% stenosis. Nice step down distally. KARINA flow was 3 throughout the procedure. Heparin was used in the case. The patient was previously on Plavix. Sheath closed with ExoSeal device. TRANSINT:[id number] Voice Confirmation ID: [id number] DOCUMENT ID: [id number] HUMBERTO BURGOS MD at 0824 CC: [id number] DICTATION DATE: 07/30/16 1009 SHEET HEATER HELPER: 07/30/16 1523 DIS IN 07/30/16 [facility] [address] [place] [address]
--- NOTE | 2016-08-18 14:36 | DS ---
PATIENT:BAM DUNN :60 MEDICAL RECORD: [id number] DISCHARGE SUMMARY ADMISSION DATE: 07/29/16 DISCHARGE DATE: 07/30/16 DISCHARGE SUMMARY: 1. Coronary artery disease, status post coronary artery bypass grafting. 2. Hypertension. 3. Obstructive pulmonary disease. 4. Gastroesophageal reflux disease. BRIEF HISTORY AND HOSPITAL COURSE: He was admitted with angina, underwent intervention with stenting of a re-stenotic stent, was discharged home in good condition. MEDICATIONS: Include Plavix 75 every day, Dulera 1 puff b.i.d., Trazodone 50 q.h.s., Pravastatin 10 every day, metoprolol 50 every day, hydralazine 25 b.i.d., lisinopril 25 every day. ACTIVITY: As tolerated. 1. Cardiac rehab was recommended. DIET: AHA diet. FOLLOWUP: Regularly scheduled followup. TRANSINT:[id number] Voice Confirmation ID: [id number] DOCUMENT ID: [id number] HUMBERTO BURGOS MD at 1436 CC: [id number] DICTATION DATE: 08/16/16 1418 AMMONIA REFRIGERATION WORKER: 08/17/16 0155 DIS IN 07/30/16 [id number] [place] [address]
== END 2016-07-30 14:18 | disposition home or self-care (01) ==
LOC: D.ER 19:40 → D.M2 21:11 → OBSVTIME 21:11 → D.M2 07-30 14:18
PROVIDERS: Emergency Medicine; ADMIT Internal Medicine Interventional Cardiology
DX: I25.110 Atherosclerotic heart disease of native coronary artery with unstable angina pectoris (principal); I10 Essential (primary) hypertension; J44.9 Chronic obstructive pulmonary disease, unspecified; E78.5 Hyperlipidemia, unspecified; K21.9 Gastro-esophageal reflux disease without esophagitis; Z72.0 Tobacco use

== ENCOUNTER 2016-08-26 07:02 | Outpatient (CLI) | payer MEDICAID ==
[~2016-08-26] VITALS: Ht 180.3 cm; Wt 90.0 kg
--- NOTE | ~2016-08-26 | HEMODYNAMI ---
PATIENT:BAM DUNN MEDICAL RECORD: [id number] : 60 LOCATION:DAjayCAT ADMISSION DATE: 08/26/16 Generatedon:08/26/20169:19 Patient name: BAM DUNN Patient #: [id number] SSN: [id number] : 1960 Date of study: 08/26/2016 Page: Of Hemodynamic Procedure Report Patient Data Patient Demographics Procedure consent was obtained First Name: BAM Gender: Male Last Name: SHAUN : 1960 Middle Initial: D Age: 56 year(s) Patient #: [id number] Race: SSN: [id number] Additional ID: [id number] Contact details [address]: [address] [place] [address] State: [place] City: [place] Zip code: [address] Past Medical History Allergies: No known allergies Admission Admission Data Admission Date: 08/26/2016 Admission Time: 7:02 Arrival Date: 08/26/2016 Arrival Time: 9:00 Admit Source: Other Insurance Payor: Private health insurance Height (in.): 71 BSA: 2.1 (m2) Height (cm.): 180.34 BMI: 27.75 (kg/m2) Weight (lbs.): 199 Weight (kg.): 90.26 Procedure Procedure Types Cath Procedure Diagnostic Procedure LHC LHC w/Coronaries w/Grafts PCI Procedure Coronary Stent Initial x2 PTCA Initial Miscellaneous Procedures Moderate Sedation up to 30 minutes Procedure Description Procedure Date Procedure Date: 08/26/2016 Procedure Start Time: 8:50 Procedure End Time: 9:17 Procedure Staff Name Function Grant Villalta MD Performing Physician Ranjana Field RT Scrub Adriane Jalloh RN Nurse Arsen Segundo RT Monitor Indication Angina Procedure Data Cath Procedure Fluoroscopy Diagnostic fluoroscopy Total fluoroscopy Time: 7.4 time: 7.4 min min Diagnostic fluoroscopy Total fluoroscopy dose: dose: 1776 mGy 1776 mGy Contrast Material Contrast Material Type Amount (ml) Isovue 300 153 Entry Location Entry Primary Successful Side Size Upsize Upsize Entry Closure Succes sful Closure Location (Fr) 1 (Fr) 2 (Fr) Remarks Device Remarks Femoral Right 5 Fr 6 Fr Exoseal artery Short Estimated blood loss: 10 ml Diagnostic catheters Device Type Used For End Catheter Placement Cordis 5Fr Pigtail Procedure Catheter (MP) Cordis 5Fr JL 4.0 Procedure Catheter (MP) Cordis 5Fr 3DRC Catheter Procedure (MP) Diagnostic Infinity 5Fr Procedure AR 2 MOD catheter Procedure Complications No complications Procedure Medications Medication Administration Route Dosage Oxygen NC 2 l/min Heparin Flush Bag added to field 2 bags (1000units/500ml NS) Lidocaine 2% added to field 20 Fentanyl I.V. 50 mcg Versed I.V. 1 mg Fentanyl I.V. 50 mcg Versed I.V. 1 mg Heparin Bolus I.V. 4000 units Hemodynamics Rest BSA: 2.1 (m2) O2 Consumption: Estimated: 249.16 (ml/min) O2 Consumption indexed: Estimated:118.65 (ml/min/m) Heart Rate: 71 (bpm) Snapshots Pre Cath Intra NCS Post Cath Vital Signs Time Heart Resp SPO2 NIBP (mmHg) Rhythm Pain Sedation Rate (ipm) (%) Status Level (bpm) 8:31:34 69 16 100 163/112(151) NSR 0 (11) 10(A) , No pain 8:35:54 70 19 100 161/100(147) NSR 0 (11) 10(A) , No pain 8:40:12 68 17 100 166/104(131) NSR 0 (11) 10(A) , No pain 8:44:32 68 17 99 165/100(150) NSR 0 (11) 10(A) , No pain 8:48:50 67 18 98 171/110(127) NSR 0 (11) 9(A) , No pain 8:53:06 67 19 97 158/111(144) NSR 0 (11) 9(A) , No pain 8:57:22 67 19 98 166/112(144) NSR 0 (11) 9(A) , No pain 9:01:37 68 20 97 154/101(125) NSR 0 (11) 9(A) , No pain 9:05:52 68 18 96 141/94(116) NSR 0 (11) 9(A) , No pain 9:10:04 69 16 97 147/89(114) NSR 0 (11) 9(A) , No pain 9:13:42 69 17 97 153/99(132) NSR 0 (11) 9(A) , No pain 9:17:58 69 12 96 155/106(129) NSR 0 (11) 9(A) , No pain Medications Time Medication Route Dose Verified Delivered Reason Notes Effectiveness by by 8:32:06 Oxygen NC 2 Adriane Adriane used for l/min Jalloh Jalloh human resources project coordinator RN 8:32:14 Heparin Flush added 2 Adriane Adriane used for Bag to bags Jalloh Jalloh procedure (1000units/500ml field RN RN NS) 8:32:34 Lidocaine 2% added 20ml Adriane Adriane used for to vial Jalloh Jalloh procedure field RN RN 8:46:52 Fentanyl I.V. 50 Adriane Adriane for sedation mcg Shubham Jalloh RN RN 8:46:57 Versed I.V. 1 mg Adriane Adriane for sedation Jalloh Jalloh RN RN 8:49:55 Fentanyl I.V. 50 Adriane Adriane for sedation mcg Jallohallyssa Jalloh RN RN 8:49:58 Versed I.V. 1 mg Adriane Adriane for sedation Jallohallyssa Jalloh RN RN 9:03:15 Heparin Bolus I.V. 4000 Adriane Adriane for units Jalloh Jalloh anticoagulation RN hand driller Log Time Note 8:06:29 Informed consent obtained and on chart 8:08:07 Admit Source: Other 8:08:11 Patient Height : 180.34 cm 8:08:20 Patient Weight : 90.26 kg 8:08:20 Insurance Payor : Private health insurance 8:08:28 Arrival Date: 08/26/2016 9:00:00 AM 8:12:10 Diagnostic Cath Status : Elective 8:12:32 Indication : Angina 8:12:40 Ranjana Field RT(R) sent for patient. Start room use. 8:12:41 Time tracking: Regular hours 8:12:46 Plan of Care:Hemodynamics will remain stable., Cardiac rhythm will remain stable., Comfort level will be maintained., Respiratory function will remain adequate., Patient/ family verbilizes understanding of procedure., Procedure tolerated without complication., Recovers from procedure without complications.. 8:22:33 Patient received from Pre/Post Procedure Room to CCL 2 Alert and oriented. Tansferred to table in Supine position. 8:22:34 Warm blankets applied, and khadar hugger turned on for patient comfort. 8:22:35 Correct patient and procedure confirmed by team. 8:22:36 ECG and BP/O2 sat monitors applied to patient. 8:30:21 Vital chart was started 8:30:22 Baseline sample Acquired. 8:30:26 Rhythm: sinus rhythm 8:30:28 Full Disclosure recording started 8:30:35 H&P Date Dictated: 08/24/2016 Within 30 days and on chart., H&P Addendum completed by physician on day of procedure. (MUST COMPLETE FOR ALL OUTPATIENTS). 8:30:36 Pre-procedure instructions explained to patient. 8:30:37 Pre-op teaching completed and patient verbalized understanding. 8:30:41 Family in waiting room. 8:30:42 Patient NPO since Midnight. 8:30:45 Is the patient allergic to Iodine/contrast media? No. 8:32:06 Oxygen 2 l/min NC was administered by Adriane Jalloh RN; used for procedure; 8:32:14 Heparin Flush Bag (1000units/500ml NS) 2 bags added to field was administered by Adriane Jalloh RN; used for procedure; 8:32:15 Is patient on blood thinner?Yes 8:32:17 ACC The patient was administered the following blood thiners within the last 24 hours: ACCPlavix 8:32:19 Patient diabetic? No. 8:32:21 Previous problem with sedation/anesthesia? No ? 8:32:22 Snore? Yes 8:32:23 Sleep apnea? No 8:32:24 Deviated septum? No 8:32:24 Opens mouth fully? Yes 8:32:25 Sticks out tongue? Yes 8:32:29 Airway obstruction? Yes COPD 8:32:33 Dentures? Yes OUT 8:32:34 Lidocaine 2% 20ml vial added to field was administered by Adriane Jalloh RN; used for procedure; 8:32:37 Pre procedure: right dorsailis pedis pulse 1+ Palpable, but thready & weak; easily obliterated 8:32:39 Patient pain scale 0/10 ?. 8:32:49 IV patent on arrival in left hand with 0.9% NaCl at [facility]. 8:32:51 Lab results completed and on chart. 8:32:56 Right groin area was prepped with chlora-prep and draped in sterile fashion 8:32:57 Alarms reviewed by R. N. 8:32:57 Sharps counted by scrub and verified by R.N. 8:33:05 Use device set Femoral Dx 8:33:06 Tegaderm 4 x 4 opened to sterile field. 8:33:07 Acist Hand Control opened to sterile field. 8:33:07 Acist Manifold opened to sterile field. 8:33:09 Acist Syringe opened to sterile field. 8:33:10 Bag Decanter opened to sterile field. 8:33:10 Medline Cath Pack opened to sterile field. 8:33:11 Terumo 5Fr [place] Sheath opened to sterile field. 8:33:11 St Erik 260cm J .035 wire opened to sterile field. 8:33:12 Diagnostic Infinity 5Fr Multipack catheter opened to sterile field. 8:40:39 ACC Patient presents with Stable Angina CCS Anginal Class 2--Slight limitation of ordinary activity. 8:44:15 ACCPatient has been prescribed/administered the following anti-anginal medication within the last 2 weeks: Beta Anmol, Long-Acting Nitrates, FARRAH-Inhibitor 8:46:27 --------ALL STOP TIME OUT------ 8:46:27 Final Timeout: patient, procedure, and site verified with staff and physician. All members of the team are in agreement. 8:46:29 Right groin site verified by team. 8:46:32 Physical assessment completed. ASA score P 2 - A patient with mild systemic disease as per Grant Villalta MD. 8:46:35 Sedation plan: IV Moderate Sedation Versed, Fentanyl 8:46:52 Fentanyl 50 mcg I.V. was administered by Adriane Jalloh RN; for sedation; 8:46:57 Versed 1 mg I.V. was administered by Adriane Jalloh RN; for sedation; 8:49:28 Zero performed for pressure channel P1 8:49:51 Procedure started. 8:49:55 Fentanyl 50 mcg I.V. was administered by Adriane Jalloh RN; for sedation; 8:49:58 Versed 1 mg I.V. was administered by Adriane Jalloh RN; for sedation; 8:50:13 Local anesthetic to right femoral artery with Lidocaine 2% by Grant Villalta MD.INITIAL ACCESS ONLY 8:50:35 A 5 Fr sheath was inserted into the Right Femoral artery 8:50:47 A Cordis 5Fr Pigtail Catheter (MP) was advanced over the wire and used for Procedure. 8:50:50 LV angiography performed. 8:51:54 LV gram done using CAMPOS 8:51:59 EF : 55 % 8:52:02 LV hemodynamics recorded. 8:52:06 Injector settings: Ml/sec: 5, Volume: 15, 8:52:08 Catheter removed. 8:52:26 A Cordis 5Fr JL 4.0 Catheter (MP) was advanced over the wire and used for Procedure. 8:53:21 LCA angiography performed. 8:53:51 Terumo 6Fr [place] Sheath opened to sterile field. 8:53:51 Merit BasixCompak Inflation Kit opened to sterile field. 8:53:53 Catheter removed. 8:55:58 A Cordis 5Fr 3DRC Catheter (MP) was advanced over the wire and used for Procedure. 8:56:08 LOPEZ to LAD angiography performed. 8:57:10 SVG to Circ angiography performed. 8:57:25 Zaragoza Whisper J 300cm 0.014 guide wire opened to sterile field. 8:57:40 SVG to Diag angiography performed. 8:57:50 RCA angiography performed. 8:57:52 Catheter removed. 8:57:56 A Diagnostic Infinity 5Fr AR 2 MOD catheter was advanced over the wire and used for Procedure. 8:58:59 SVG to RCA angiography performed. 8:59:32 Catheter removed. 8:59:47 Cordis 6FR XBLAD 3.5 guide catheter opened to sterile field. 9:00:21 Sheath upsized to a 6 Fr Short. 9:00:36 6 Fr XBLAD 3.5 guide catheter was inserted over the wire 9:01:14 Zaragoza Whisper J 300cm 0.014 guide wire opened to sterile field. 9:02:49 ACC PCI Site: Ramus has 90% stenosis. 9:02:50 ACC Pre-intervention KARINA Flow is 3. 9:02:54 ACC PCI Site: OM1 has 90% stenosis. 9:02:57 Whisper wire advanced. 9:03:15 Heparin Bolus 4000 units I.V. was administered by Adriane Jalloh RN; for anticoagulation; 9:03:35 Wire advanced down the OM. 9:04:35 Whisper wire advanced. 9:04:39 Wire advanced down the Ramus. 9:04:54 Inflation Number: 1 A Medtronic Resolute 2.5 X 8 stent was prepped and advanced across the Ramus. The stent was deployed at 13 DEION for 0:10 (min:sec). 9:05:44 Stent catheter was removed intact over wire. 9:06:02 Wire removed from the Ramus. 9:06:56 Inflation number: 1 The stent balloon was then re-inflated across the 1st Ob Janene to 11 DEION for 0:10 (min:sec). 9:07:38 Stent catheter was removed intact over wire. 9:08:23 Inflation Number: 2 A Medtronic Resolute 2.75 X 8 stent was prepped and advanced across the 1st Ob Janene. The stent was deployed at 13 DEION for 0:10 (min:sec). 9:09:06 Wire redirected to LAD. 9:09:16 Inflation number: 1 The stent balloon was then re-inflated across the Prox LAD to 17 DEION for 0:10 (min:sec). 9:10:22 Balloon removed over the wire. 9:10:24 Wire removed. 9:10:25 Guide catheter removed. 9:10:34 Cordis 6Fr Exoseal opened to sterile field. 9:11:10 Sheath removed intact; hemostasis achieved with Exoseal to the Right Femoral artery. 9:11:12 Procedure ended.(Physican Out) 9:13:13 Fluoroscopy time 07.40 minutes. 9:13:17 Fluoroscopy dose: 1776 mGy 9:: Flurop Dose total: 1776 9::22 Contrast amount:Isovue 300 153ml. 9:13:24 Sharps counted by scrub and verified by R.N. 9:13:27 Insertion/operative site no bleeding no hematoma. 9:13:29 Post-op/insertion site Right Femoral artery dressed using a 4 x 4 and Tegaderm. 9:13:30 Post Procedure Pulses reassessed and unchanged 9:13:33 Post-procedure physical assessment completed. ASA score P 2 - A patient with mild systemic disease as per Grant Villalta MD. 9:13:35 Post procedure rhythm: unchanged. 9:13:36 Estimated blood loss: 10 ml 9:13:38 Post procedure instruction explained to patient.Patient verbalizes understanding. 9:13:38 Patient needs reinforcement of post procedure teaching. 9:15:00 Procedure type changed to Cath procedure, Diagnostic procedure, LHC, LHC w/Coronaries w/Grafts, PCI procedure, Coronary Stent Initial x2, PTCA Initial, Miscellaneous Procedures, Moderate Sedation up to 30 minutes 9:15:07 Procedure Complication : No complications 9:16:06 Procedure and supply charges have been captured, reviewed, submitted and are correct. 9:17:48 Vital chart was stopped 9:17:49 See physician's report for complete and final results. 9:17:51 Report given to Pre/Post Procedure Room. 9:17:54 Patient transfered to Pre/Post Procedure Room with Stretcher. 9:17:56 Procedure ended. 9:17:56 Full Disclosure recording stopped 9:18:18 ACC-PCI Only Patient was given prescriptions, or instructed by Grant Villalta MD to start/continue the following medications upon discharge: Aspirin, Plavix 9:18:20 End room use (Document Last) Intervention Summary Intervention Notes Time ActionType Lesion and Equipment Action# Pressure Duration Attributes Used 9:04:54 Place stent Ramus Medtronic 1 13 00:10 Resolute 2.5 X 8 stent 9:06:56 Reinflate 1st Ob Janene Medtronic 1 11 00:10 stent Resolute balloon 2.5 X 8 stent 9:08:23 Place stent 1st Ob Janene Medtronic 2 13 00:10 Resolute 2.75 X 8 stent 9:09:16 Reinflate Prox LAD Medtronic 1 17 00:10 stent Resolute balloon 2.75 X 8 stent Device Usage Item Name Manufacture Quantity Catalog Hospital Part Current Minimal Lot# / Number Charge Number Stock Stock Serial# Code Tegaderm 4 1 [id number] [id number] 5 x 4 Acist Hand Acist 1 24992 280700 412795 446389 'Rock' Your Paper Acist Acist 1 24286 862736 526872 932169 5 [employer] Inc Acist Acist 1 55165 832779 536286 976302 20 Syringe 9Flava Systems Inc Bag Microtek 1 2002S 176899 26588 329788 5 [employer] Medline Cardinal 1 [id number] 799511 39245 100094 5 Cath Pack Health Terumo 5Fr Terumo 1 [id number] 564702 731865 819693 [address] [place] [address] Erik 1 664416 112622 369410 899575 30 260cm J .035 wire Diagnostic Cardinal 1 [id number] 741312 11231 099331 30 Infinity Health 5Fr Multipack catheter Cordis 5Fr Cardinal 1 152866 5 Pigtail Health Catheter (MP) Cordis 5Fr Cardinal 1 071077 5 JL 4.0 Health Catheter (MP) Terumo 6Fr Terumo 1 [id number] 258608 728973 787163 40 [place] Sheath [facility] 1 [id number] 403279 123168 151976 15 BasInnovative SiliconValley View Medical CenterVonage Medical Inflation Kit Cordis 5Fr Cardinal 1 835277 5 3DRC Health Catheter (MP) Zaragoza Zaragoza 2 [id number] 628850 636788 297768 5 Whisper J Vascular 300cm 0.014 guide wire Diagnostic Cardinal 1 [id number] 136709 685346 609634 20 Infinity Health 5Fr AR 2 MOD catheter Cordis 6FR Cardinal 1 [id number] 248145 362622 653701 10 XBLAD 3.5 Health guide catheter Medtronic Medtronic 1 [id number] 960056 582720 3 [id number] Resolute 2.5 X 8 stent Medtronic Medtronic 1 [id number] 148637 336722 1 [id number] Resolute 2.75 X 8 stent Cordis 6Fr Cardinal 1 EX600 187072 673966 337590 10 Bright Computing Signature Audit [place] Stage Time Signature Unsigned Intra-Procedure 08/26/2016 Arsen Segundo 9:18:56 AM RT(R) Signatures Monitor : Arsen Segundo RT Signature : Date : Time : [facility] [address] [place] [address]
[~2016-08-26 07:02] MED LIST changes: +ISOSORBIDE MONO30 M1 PO; +NITRO-DUR0.4 MG TRANSDERM; +SYMBICORT 16010.2 GM INH; +XANAX0.25 MG PO
[2016-08-26 07:44] VITALS: BP 134/92; Ht 180.3 cm; Wt 90.0 kg
[2016-08-26 07:49] LABS: BASOPHILS 0.3 % (0.0-2.0); EOSINOPHILS 2.7 % (0-7); HEMATOCRIT 42.3 % (42.0-54.0); HEMOGLOBIN 14.1 g/dL (13.5-17.5); IMMATURE GRANULOCYTES 0.2 % (0-5); LYMPHOCYTES 39.8 % (15-50); MCH 29.2 pg (26.0-34.0); MCHC 33.3 g/dL (31.0-37.0); MCV 87.6 fL (80.0-100.0); MEAN PLATELET VOLUME 10.1 fL (7.4-10.4); PLATELET COUNT 175 10x3/uL (130-400); RBC 4.83 10x6/uL (4.20-6.10); WBC 5.9 10x3/uL (4.8-10.8)
[2016-08-26 08:19] LABS: ANION GAP 12.5 mmol/L (8-16); CALCIUM 8.8 mg/dL (8.5-10.1); CARBON DIOXIDE 22.5 mmol/L (21.0-32.0); CREATININE - SERUM 1.3 mg/dL (0.6-1.3)
--- NOTE | 2016-08-26 09:40 | NUR ---
RESTING QUIETLY IN BED. 2L NC, NO RESP DISTRESS NOTED. VSS. NO C/O CHEST PAIN OR NAUSEA. RIGHT GROIN CDI, NO BLEEDING OR HEMATOMA NOTED. WILL CONTINUE TO MONITOR.
--- NOTE | 2016-08-26 10:10 | NUR ---
IN BED ASLEEP. VSS. NO RESP DISTRESS NOTED. NO C/O CHEST PAIN. RIGHT GROIN CDI, NO BLEEDING OR HEMATOMA NOTED. CALL LIGHT WITHIN REACH.
--- NOTE | 2016-08-26 10:25 | NUR ---
RIGHT GROIN CDI, NO BLEEDING OR HEMATOMA NOTED. 2L NC, NO RESP DISTRESS. NO C/O CHEST PAIN. SIDE RAILS UP X2, CALL LIGHT WITHIN REACH.
--- NOTE | 2016-08-26 10:55 | NUR ---
STATES HE STILL HAS RIGHT ARM PAIN. NOTIFIED DR. ROMAN, REC'D ORDER FOR NORCO 10. NO C/O CHEST PAIN OR NAUSEA. RIGHT GROIN CDI, NO BLEEDING OR HEMATOMA NOTED. VSS. WILL CONTINUE TO MONITOR.
--- NOTE | 2016-08-26 11:25 | NUR ---
RESTING QUIETLY. VSS. RIGHT GROIN CDI, NO BLEEDING OR HEMATOMA NOTED. NO C/O CHEST PAIN. 2L NC, NO RESP DISTRESS. WILL CONTINUE TO MONITOR.
--- NOTE | 2016-08-26 12:02 | NUR ---
SANDWICH TRAY GIVEN. NO C/O NAUSEA. STATES RIGHT ARM PAIN IS BETTER. VOIDED 450CC OF CLEAR YELLOW URINE.
--- NOTE | 2016-08-26 12:30 | NUR ---
NO CHANGE IN ASSESSMEN VSS WITH NEEDS DENIED
--- NOTE | 2016-08-26 12:51 | NUR ---
PIV REMOVED FROM LEFT ARM WITH DRESSING APPLIED PATIENT DENIED CHEST PAIN VSS WITH 6 FR EXOSEAL R/GROIN CDI NO BLEEDING NO HEMATOMA NOTED UP TO GET DRESSED FOR DISCHARGE HOME
--- NOTE | 2016-08-26 13:13 | NUR ---
DISCHARGE INSTRUCTIONS GONE OVER WITH PATIENT AND FAMILY LEFT [facility] TO [facility] FOR DISCHARGE HOME
--- NOTE | 2016-09-09 10:19 | OP ---
PATIENT NAME: BAM DUNN MEDICAL RECORD: [id number] :60 LOCATION:D.CAT ADMISSION DATE: SURGEON: ARPITA ROMAN MD DATE OF OPERATION: 08/26/2016 PROCEDURES: 1. Percutaneous transluminal coronary angioplasty stent, ramus intermedius. 2. Percutaneous transluminal coronary angioplasty stent, left circumflex. 3. Percutaneous transluminal coronary angioplasty stent, LAD. 4. Left heart catheterization. 5. Selective coronary angiography. 6. Vein graft angiography. 7. LOPEZ angiography. 8. Left ventriculogram. INDICATION: Angina and coronary artery disease. DESCRIPTION OF THE PROCEDURE: After informed consent was obtained and after detailed explanation of risks, benefits as well as alternative therapies, the patient elected to proceed with angiogram and angioplasty. The right femoral area was prepped and draped in normal sterile fashion. The right femoral artery was cannulated via modified Seldinger technique with placement of 6-Yi sheath. All catheters exchanged through this sheath. FINDINGS: The left ventriculogram was performed in the standard 30-degree CAMPOS view reveals good cardiac wall motion throughout all segments. Overall ejection fraction estimated at 60%. SELECTIVE CORONARY ANGIOGRAPHY: 1. Left main is with no significant angiographic disease. 2. Left anterior descending has previously placed stents, these are widely patent. There is a LOPEZ that is grafted to the mid LAD, this is as well patent. 3. The left circumflex has a large ramus intermedius, this has a 90% stenosis at the ostium. After this, a previously placed stent is patent. The left circumflex itself has 90% stenosis at its ostium and this is large first obtuse marginal, basically the AV groove circumflex leads to a second obtuse marginal that is grafted with a patent graft. 4. The right coronary artery has over 80% stenosis proximally. 5. Vein graft to the right coronary is widely patent. 6. Vein graft to the LAD diagonal is as well widely patent throughout. PERCUTANEOUS TRANSLUMINAL CORONARY ANGIOPLASTY STENT, RAMUS INTERMEDIUS: The ramus was addressed with a 2.5 x 8 mm Resolute stent, the obtuse marginal with a 2.75 x 8 mm Resolute stent, this caused plaque shift into the LAD. We ballooned the LAD with a 2.75 balloon. Result was 0% residual throughout. No angiographic evidence of dissection or thrombus with mormonism of KARINA-3 flow. IMPRESSION: Successful percutaneous transluminal coronary angioplasty stent of the ramus intermedius and circumflex first obtuse marginal going from 90% initial stenosis to 0% residual. TRANSINT:[id number] Voice Confirmation ID: [id number] DOCUMENT ID: [id number] OPERATIVE REPORT [id number] BAM DUNN JEFFREY MD at 1019 CC: [id number] DICTATION DATE: 08/26/16920 SENIOR MANUFACTURING ENGINEER: 08/26/16 1204 DEP CLI 08/26/16 [id number] [place] [address]
== END 2016-08-26 13:18 | disposition home or self-care (01) ==
LOC: D.CATH 07:02
PROVIDERS: Internal Medicine Interventional Cardiology
DX: I25.119 Atherosclerotic heart disease of native coronary artery with unspecified angina pectoris (principal)

== ENCOUNTER 2016-09-16 11:22 | Emergency (ER) | payer MEDICAID ==
[2016-08-26 07:44] VITALS: BMI 27.6
--- NOTE | ~2016-09-16 | CN ---
PATIENT NAME:BAM DUNN MEDICAL RECORD: [id number] : 60 LOCATION:D.ER ADMIT DATE: ACCOUNT: [id number] CONSULTING PHYSICIAN: ARPITA ROMAN MD REFERRING PHYSICIAN: CARA LION MD DATE OF CONSULTATION: 09/16/2016 Cardiology Consultation DIAGNOSES: 1. Palpitations. 2. Tachycardia. 3. Shortness of breath. 4. Coronary artery disease. 5. Previous coronary artery bypass graft surgery, previous percutaneous transluminal coronary angioplasty stent. 6. Hypertension. HISTORY OF PRESENT ILLNESS: This is a gentleman who has history of coronary artery disease, status post coronary artery bypass graft surgery and recent PTCA stent in July, who now presents with tachycardia; however, his metoprolol was stopped recently and he was changed to Procardia for difficult to control blood pressure, comes in with sinus tachycardia of 120. PHYSICAL EXAMINATION: GENERAL APPEARANCE: Well-nourished, well-developed, appears stated age. Level of distress, comfortable. PSYCHIATRIC: Mental status, alert, normal affect. Orientation, oriented to time, place and person. EYES: Lids and conjunctiva, noninjected. No discharge, no pallor. ENT: Lips, teeth, gums, normal dentition. Oropharynx, no cyanosis, no pallor. NECK: Carotid arteries, bilateral normal upstroke, no bruits, no thrills. JUGULAR VEINS: No jugular venous pressure or distention. CERVICAL LYMPH NODES: Nontender, nonenlarged. THYROID: Not enlarged. Nontender. No nodules. LUNGS: Respiratory effort, unlabored. CHEST: Normal curvature. No thoracic deformity. No chest wall tenderness. Percussion, resonant. Auscultation, clear. No wheezes, no rales, no rhonchi. CARDIOVASCULAR: Precordial exam, nondisplaced. No heaves or pericardial thrills. Rate and rhythm, regular. Heart sounds, normal S1, normal S2. No S3, no gallop, no rub. Systolic murmur, not heard. Diastolic murmur, not heard. EXTREMITIES: No cyanosis, no edema. Peripheral pulses, full and equal in all extremities, except as noted. No bruits appreciated. ABDOMEN: Soft, nondistended. Normal aorta. No bruit. Nontender. No masses. Liver, nontender, no hepatomegaly. Spleen, nontender, no splenomegaly. MUSCULOSKELETAL: No joint tenderness. No joint swelling. No erythema. NEUROLOGICAL: Normal gait, normal strength, normal tone. SKIN: Warm and dry. REVIEW OF SYSTEMS: The patient reports easy bruising but reports no swollen glands. The patient reports no fever, no night sweats, no significant weight gain, no significant weight loss. No significant exercise tolerance. The patient reports no dry eyes, no irritation, no vision change. Patient reports no difficulty hearing and no ear pain. Patient reports no frequent nose bleeds or nose and sinus problems. Patient reports on arm pain on exertion. No CONSULT REPORT [id number] BAM DUNN shortness of breath while lying down. No history of heart murmur. Patient reports no cough, no wheezing or coughing up blood. Patient reports no abdominal pain, no vomiting. Normal appetite. No diarrhea and not vomiting blood. No nausea and no constipation. Patient reports no incontinence. No difficulty urinating. No hematuria. No increased frequency. Patient reports no muscle aches. No weakness, no arthralgias, no back pain. No swelling of the extremities. Patient reports no abnormal mole, no jaundice, no rashes. Reports no loss of consciousness. No weakness and no numbness. No seizures, dizziness, or headaches. The patient reports no depression, no sleep disturbance, feeling safe in a relationship and no alcohol abuse. Patient reports on fatigue. Reports no runny nose or sinus pressure. No itching, no hives, and no frequent sneezing. OVERALL IMPRESSION: Clearly, he will need a beta-amador due to his tachycardia intolerance, off of beta-amador. He has got a reflex tachycardia. At this time, we will start the metoprolol in the ER form of once a day at 50 mg, continuing on Procardia. We will see him back in the office within 1 week. TRANSINT:[id number] Voice Confirmation ID: [id number] DOCUMENT ID: [id number] ARPITA ROMAN MD CC: [id number] DICTATION DATE: 09/16/16 120 COSMETOLOGIST: 09/16/16 1224 [facility] [address] [place] [address]
[2016-09-16 12:10] LABS: BASOPHILS 0.3 % (0-2); EOSINOPHILS 1.3 % (0-7); HEMATOCRIT 45.1 % (42.0-54.0); HEMOGLOBIN 15.5 g/dL (13.5-17.5); IMMATURE GRANULOCYTES 0.1 % (0-5); LYMPHOCYTES 29.1 % (15-50); MCH 29.1 pg (26.0-34.0); MCHC 34.4 g/dL (31.0-37.0); MCV 84.8 fL (80.0-100.0); MEAN PLATELET VOLUME 9.6 fL (7.4-10.4); MONOCYTES 8.5 % (2-11); NEUTROPHILS 60.7 % (40-80); PLATELET COUNT 176 10x3/uL (130-400); RBC 5.32 10x6/uL (4.20-6.10); RDW 13.5 % (11.5-14.5)
[2016-09-16 12:28] LABS: ALKALINE PHOSPHATASE 54 U/L (46-116); ALT (SGPT) 23 U/L (10-68); BILIRUBIN - TOTAL 0.54 mg/dL (0.2-1.3); CALC OSMOLALITY 285 mosm/kg (275-300); CARBON DIOXIDE 23.9 mmol/L (21.0-32.0); CHLORIDE - SERUM 106 mmol/L (98-107); CREATININE - SERUM 1.2 mg/dL (0.6-1.3); GLUCOSE 95 mg/dL (74-106); POTASSIUM - SERUM 3.6 mmol/L (3.5-5.1); PROTEIN - SERUM 7.8 g/dL (6.4-8.2); SODIUM 143 mmol/L (136-145); UREA NITROGEN 15 mg/dL (7-18); eGFR NON AFRICAN AMERICAN 66 mL/min (90-120)
[2016-09-16 12:33] LABS: INR 0.99 (0.85-1.17); PROTIME 12.9 SECONDS (11.6-15.0)
[2016-09-16 12:34] LABS: D-DIMER-QUANTITATIVE 0.28 ug/mLFEU (0.20-0.54)
[2016-09-16 12:36] LABS: MAGNESIUM - SERUM 1.9 mg/dL (1.8-2.4); PRO BNP 116 pg/mL (0-125)
[2016-09-16 12:38] LABS: TROPONIN-I < 0.017 ng/mL (0.000-0.060)
== END 2016-09-16 12:35 | disposition home or self-care (01) ==
LOC: D.ER 11:22
PROVIDERS: Family Medicine
DX: R00.0 Tachycardia, unspecified (principal); Z95.1 Presence of aortocoronary bypass graft; I10 Essential (primary) hypertension; I50.9 Heart failure, unspecified; J44.9 Chronic obstructive pulmonary disease, unspecified; I25.810 Atherosclerosis of coronary artery bypass graft(s) without angina pectoris; I95.9 Hypotension, unspecified

== ENCOUNTER 2016-11-22 09:29 | Emergency (ER) | payer MEDICAID ==
[2016-08-26 07:44] VITALS: BMI 27.6
[2016-11-22 10:01] LABS: BASOPHILS 0.4 % (0-2); EOSINOPHILS 1.5 % (0-7); HEMOGLOBIN 15.2 g/dL (13.5-17.5); IMMATURE GRANULOCYTES 0.1 % (0-5); LYMPHOCYTES 35.5 % (15-50); MCH 29.8 pg (26.0-34.0); MCHC 34.5 g/dL (31.0-37.0); MCV 86.3 fL (80.0-100.0); MEAN PLATELET VOLUME 10.2 fL (7.4-10.4); MONOCYTES 6.5 % (2-11); RDW 14.4 % (11.5-14.5); WBC 9.6 10x3/uL (4.8-10.8)
[2016-11-22 10:03] LABS: PLATELET COUNT 227 10x3/uL (130-400)
[2016-11-22 10:21] LABS: ALBUMIN 3.7 g/dL (3.4-5.0); ALKALINE PHOSPHATASE 60 U/L (46-116); ALT (SGPT) 26 U/L (10-68); CALC OSMOLALITY 282 mosm/kg (275-300); CALCIUM 9.3 mg/dL (8.5-10.1); CARBON DIOXIDE 22.7 mmol/L (21.0-32.0); CHLORIDE - SERUM 107 mmol/L (98-107); CREATININE - SERUM 1.4 mg/dL (0.6-1.3); GLUCOSE 103 mg/dL (74-106); POTASSIUM - SERUM 3.9 mmol/L (3.5-5.1); PROTEIN - SERUM 7.4 g/dL (6.4-8.2); SODIUM 140 mmol/L (136-145); UREA NITROGEN 23 mg/dL (7-18); eGFR NON AFRICAN AMERICAN 56 mL/min (90-120)
[2016-11-22 10:34] LABS: CHOL - HDL RATIO 4.4 ratio (2.3-4.9); CHOLESTEROL, TOTAL 171 mg/dL (0-200); CKMB 1.6 U/L (0.0-3.6); CREATINE KINASE 156 UL (21-232); HDL CHOLESTEROL 39 mg/dL (32-96); LDL CHOLESTEROL 92 mg/dL (0-100); LDL-HDL RATIO 2.4 ratio (1.5-3.5); TRIGLYCERIDE 201 mg/dL (30-200); TROPONIN-I < 0.017 ng/mL (0.000-0.060)
== END 2016-11-22 14:44 | disposition home or self-care (01) ==
LOC: D.ER 09:29
PROVIDERS: Emergency Medicine
DX: M94.0 Chondrocostal junction syndrome [Tietze] (principal); I25.810 Atherosclerosis of coronary artery bypass graft(s) without angina pectoris; I10 Essential (primary) hypertension

== ENCOUNTER 2017-01-12 22:11 | Observation (INO) | payer MEDICAID ==
[~2017-01-12] VITALS: Ht 180.3 cm; Wt 85.9 kg
--- NOTE | ~2017-01-12 | DS ---
PATIENT:BAM DUNN :60 MEDICAL RECORD: [id number] DISCHARGE SUMMARY ADMISSION DATE: 01/12/17 DISCHARGE DATE: 01/13/17 DISCHARGE DIAGNOSES: 1. Angina. 2. Coronary artery disease. 3. Previous bypass surgery 4. Previous multivessel percutaneous transluminal coronary angioplasty stent. HOSPITAL COURSE: Mr. Dunn presents with anginal symptomatology; however, all his stents were widely patent and his bypass graft is widely patent. We will continue medical management of the coronary artery disease and cardiac risk factors. TRANSINT:[id number] Voice Confirmation ID: [id number] DOCUMENT ID: [id number] ARPITA ROMAN MD CC: [id number] DICTATION DATE: 01/13/17 1245 LOOPING INSPECTOR: 01/14/17 0636 DIS IN 01/13/17 [address] [place] [address]
--- NOTE | ~2017-01-12 | HEMODYNAMI ---
PATIENT:BAM DUNN MEDICAL RECORD: [id number] : 60 [id number] ADMISSION DATE: 01/12/17 Generatedon:01/13/201712:49 Patient name: BAM DUNN Patient #: [id number] SSN: [id number] : 1960 Date of study: 01/13/2017 Page: Of Hemodynamic Procedure Report Patient Data Patient Demographics Procedure consent was obtained First Name: BAM Gender: Male Last Name: SHAUN : 1960 [facility] Initial: D Age: 56 year(s) Patient #: [id number] Race: SSN: [id number] Additional ID: [id number] Contact details Address: [address] [place] [address] State: [place] City: [place] Zip code: [address] Past Medical History Allergies: No known allergies Admission Admission Data Admission Date: 01/12/2017 Admission Time: 23:45 Room #: D.2103 Lab Results Lab Result Date: 01/13/2017 Lab Result Time: 10:45 Biochemistry Name Units Result Min Max BUN mg/dl 24 --(----)-* 7 18 Creatinine mg/dl 1.8 --(----)-* 0.6 1.3 CBC Name Units Result Min Max Hematocrit % 40.5 -*(----)-- 42 54 Hemoglobin g/dl 14.1 --(*---)-- 13.5 17.5 Coagulation Name Units Result Min Max INR units 0.96 --(-*--)-- 0.85 1.17 PT sec 12.6 --(-*--)-- 11.6 15 Procedure Procedure Types Cath Procedure Diagnostic Procedure LHC LHC w/Coronaries w/Grafts Miscellaneous Procedures Moderate Sedation up to 15 minutes Procedure Description Procedure Date Procedure Date: 01/13/2017 Procedure Start Time: 12:36 Procedure End Time: 12:49 Procedure Staff Name Function Grant Villalta MD Performing Physician Sebastien Tomlin RN Nurse Alejo Burnett RT Monitor Arsen Segundo RT Scrub Procedure Data Cath Procedure Fluoroscopy Diagnostic fluoroscopy Total fluoroscopy Time: 1.5 time: 1.5 min min Diagnostic fluoroscopy Total fluoroscopy dose: 481 dose: 481 mGy mGy Contrast Material Contrast Material Type Amount (ml) Isovue 300 70 Entry Location Entry Primary Successful Side Size Upsize Upsize Entry Closure Succes sful Closure Location (Fr) 1 (Fr) 2 (Fr) Remarks Device Remarks Femoral Right 6 Fr Exoseal artery Short Estimated blood loss: 10 ml Diagnostic catheters Device Type Used For End Catheter Placement Diagnostic Infinity 5Fr Procedure Pigtail catheter Diagnostic Infinity 5Fr Procedure AR 2 MOD catheter Procedure Complications No complications Procedure Medications Medication Administration Route Dosage Oxygen NC 2 l/min Heparin Flush Bag added to field 2 bags (1000units/500ml NS) 0.9% NaCl I.V. 100 ml/hr Fentanyl I.V. 100 mcg Versed I.V. 2 mg Hemodynamics Rest Pre Cath Intra NCS Post Cath Vital Signs Time Heart Resp SPO2 etCO2 RQ0kcmg NIBP (mmHg) Rhythm Pain Sedatio n Rate (ipm) (%) (mmHg) (mmHg) Status Level (bpm) 12:32:30 77 17 98 0 0 156/100(131) NSR 0 (11) 10(A) , No pain 12:36:44 75 16 100 0 0 145/101(120) NSR 0 (11) 9(A) , No pain 12:40:56 75 16 95 0 0 133/92(111) NSR 0 (11) 9(A) , No pain 12:45:06 75 17 94 0 0 131/85(105) NSR 0 (11) 9(A) , No pain 12:47:05 73 19 92 0 0 146/91(129) NSR 0 (11) 9(A) , No pain Medications Time Medication Route Dose Verified Delivered Reason Notes Effec tiveness by by 12:30:34 Oxygen NC 2 Sebastien Crowe Per l/min Nabor Tomlin RN physician RN 12:30:44 Heparin Flush added 2 Sebastien Crowe used for Bag to bags Nabor Tomlin cafe lead (1000units/500ml field RN NS) 12:31:00 0.9% NaCl I.V. 100 Sebastien Sebastien Per ml/hr Nabor Tomlin RN physician RN 12:35:38 Fentanyl I.V. 100 Sebastien Crowe for mcg Nabor Tomlin RN sedation RN 12:35:45 Versed I.V. 2 mg Sebastien Crowe for Nabor Tomlin RN sedation bottom worker Log Time Note 12:12:29 Sebastien Tomlin RN sent for patient. Start room use. 12:12:30 Time tracking: Regular hours 12:12:36 Plan of Care:Hemodynamics will remain stable., Cardiac rhythm will remain stable., Comfort level will be maintained., Respiratory function will remain adequate., Patient/ family verbilizes understanding of procedure., Procedure tolerated without complication., Recovers from procedure without complications.. 12:15:34 Lab Result : Hemoglobin 14.1 g/dl 12:15:34 Lab Result : Hematocrit 40.5 % 12:15:34 Lab Result : BUN 24 mg/dl 12:15:34 Lab Result : Creatinine 1.8 mg/dl 12:15:43 H&P Date Dictated: 01/12/2017 Within 30 days and on chart.. 12:16:16 Lab Result : INR 0.96 units 12:16:16 Lab Result : PT 12.6 sec 12:17:46 Patient allergic to No known allergies 12:24:58 Patient received from Med II to CCL 1 Alert and oriented. Tansferred to table in Supine position. 12:24:59 Warm blankets applied, and khadar hugger turned on for patient comfort. 12:25:00 Correct patient and procedure confirmed by team. 12:25:01 Signed procedure consent form obtained from patient. 12:25:02 ECG and BP/O2 sat monitors applied to patient. 12:25:04 Pre-procedure instructions explained to patient. 12:25:04 Pre-op teaching completed and patient verbalized understanding. 12:30:34 Oxygen 2 l/min NC was administered by Sebastien Tomlin RN; Per physician; 12:30:44 Heparin Flush Bag (1000units/500ml NS) 2 bags added to field was administered by Sebastien Tomlin RN; used for procedure; 12:31:00 0.9% NaCl 100 ml/hr I.V. was administered by Sebastien Tomlin RN; Per physician; 12:31:26 Vital chart was started 12:31:32 Rhythm: sinus rhythm 12::34 Full Disclosure recording started 12:31:42 Family unavailable. 12::43 Patient NPO since Midnight. 12::46 Is the patient allergic to Iodine/contrast media? No. 12:31:51 Is patient on blood thinner?Yes 12:31:53 ACC The patient was administered the following blood thiners within the last 24 hours: ACCPlavix 12:31:56 Patient diabetic? No. 12:31:59 Previous problem with sedation/anesthesia? No ? 12:32:00 Snore? Yes 12:32:02 Sleep apnea? No 12:32:03 Deviated septum? No 12:32:04 Opens mouth fully? Yes 12:32:05 Sticks out tongue? Yes 12:32:08 Airway obstruction? Yes COPD 12:32:13 Dentures? Yes OUT 12:32:18 Pre procedure: right dorsailis pedis pulse 1+ Palpable, but thready & weak; easily obliterated 12:32:23 Patient pain scale 0/10 ?. 12:32:30 IV patent on arrival in left hand with 0.9% NaCl at [facility]. 12:32:33 Lab results completed and on chart. 12:32:41 Right groin area was prepped with chlora-prep and draped in sterile fashion 12:32:43 Alarms reviewed by R. N. 12:32:44 Sharps counted by scrub and verified by R.N. 12:32:49 --------ALL STOP TIME OUT------ 12:32:50 Final Timeout: patient, procedure, and site verified with staff and physician. All members of the team are in agreement. 12:32:59 Right groin site verified by team. 12:33:02 Physical assessment completed. ASA score P 2 - A patient with mild systemic disease as per Grant Villalta MD. 12:33:05 Sedation plan: IV Moderate Sedation Versed, Fentanyl 12:35:38 Fentanyl 100 mcg I.V. was administered by Sebastien Tomlin RN; for sedation; 12:35:45 Versed 2 mg I.V. was administered by Sebastien Tomlin RN; for sedation; 12:36:01 Use device set Femoral Dx 12:36:03 Tegaderm 4 x 4 opened to sterile field. 12:36:04 Acist Hand Control opened to sterile field. 12:36:05 Acist Manifold opened to sterile field. 12:36:06 Acist Syringe opened to sterile field. 12:36:07 Bag Decanter opened to sterile field. 12:36:07 Medline Cath Pack opened to sterile field. 12:36:08 Terumo 5Fr Sparta Sheath opened to sterile field. 12:36:08 St Erik 260cm J .035 wire opened to sterile field. 12:36:15 Zero performed for pressure channel P1 12:36:21 Procedure started. 12:36:26 Local anesthetic to right femoral artery with Lidocaine 2% by Grant Villalta MD.INITIAL ACCESS ONLY 12:37:20 A 6 Fr Short sheath was inserted into the Right Femoral artery 12:37:42 Terumo 6Fr Sparta Sheath opened to sterile field. 12:37:46 A Diagnostic Infinity 5Fr Pigtail catheter was advanced over the wire and used for Procedure. 12:38:00 LV angiography performed. 12:38:01 LV gram done using CAMPOS 12:38:07 EF : 60 % 12:38:10 Injector settings: Ml/sec: 7, Volume: 15, 12:38:20 Catheter removed. 12:38:28 A Diagnostic Infinity 5Fr AR 2 MOD catheter was advanced over the wire and used for Procedure. 12:39:14 SVG to Circ angiography performed. 12:39:17 RCA angiography performed. 12:40:07 SVG to RCA angiography performed. 12:41:11 Catheter removed. 12:41:13 Cordis 6FR XBLAD 3.5 SH guide catheter opened to sterile field. 12:41:32 6 Fr XBLAD 3.5 SH guide catheter was inserted over the wire 12:41:47 LCA angiography performed. 12:42:25 Catheter removed. 12:44:44 Cordis 6Fr Exoseal opened to sterile field. 12:45:06 Sheath removed intact; hemostasis achieved with Exoseal to the Right Femoral artery. 12:45:08 Procedure ended.(Physican Out) 12:47:02 Fluoroscopy time 01.50 minutes. 12:47:06 Fluoroscopy dose: 481 mGy 12:47:06 Flurop Dose total: 481 12:47:15 Contrast amount:Isovue 300 70ml. 12:47:18 Sharps counted by scrub and verified by R.N. 12:47:19 Insertion/operative site no bleeding no hematoma. 12:47:23 Post-op/insertion site Right Femoral artery dressed using a 4 x 4 and Tegaderm. 12:47:25 Post Procedure Pulses reassessed and unchanged 12:47:28 Post-procedure physical assessment completed. ASA score P 2 - A patient with mild systemic disease as per Grant Villalta MD. 12:47:33 Post procedure rhythm: unchanged. 12:47:35 Estimated blood loss: 10 ml 12:47:38 Post procedure instruction explained to patient.Patient verbalizes understanding. 12:47:38 Patient needs reinforcement of post procedure teaching. 12:47:49 Procedure type changed to Cath procedure, Diagnostic procedure, LHC, LHC w/Coronaries w/Grafts, Miscellaneous Procedures, Moderate Sedation up to 15 minutes 12:47:52 Procedure Complication : No complications 12:47:55 Procedure and supply charges have been captured, reviewed, submitted and are correct. 12:49:17 Vital chart was stopped 12:49:18 See physician's report for complete and final results. 12:49:23 Report given to PCU. 12:49:26 Patient transfered to PCU with Bed. 12:49:28 Procedure ended. 12:49:28 Full Disclosure recording stopped 12:49:33 End room use (Document Last) Device Usage Item Name Manufacture Quantity Catalog Hospital Part Current Minimal Lo t# / Number Charge Number Stock Stock Serial# Code Tegaderm 4 3M 1 [id number] [id number] 187432 5 x 4 Acist Hand Acist 1 96492 737962 209074 417121 5 Control [employer] Inc Acist Acist 1 56856 484278 291112 859433 5 Manifold Medical Systems Inc Acist Acist 1 61410 479208 351623 953243 20 Syringe Medical Systems Inc Bag Microtek 1 2002S 368158 42743 154738 5 Decanter Medical Inc. Medline Cardinal 1 [id number] 498286 88906 614156 5 Cath Pack Health Terumo 5Fr Terumo 1 [id number] 574398 941361 410235 [address] Erik 1 404271 032960 033859 796079 30 260cm J .035 wire Terumo 6Fr Terumo 1 [id number] 889896 460767 426724 40 Sparta Sheath Diagnostic Cardinal 1 [id number] 055508 298561 867890 5 Impulcityity Health 5Fr Pigtail catheter Diagnostic Cardinal 1 [id number] 147843 218193 338354 20 Impulcity[employer] 5Fr AR 2 MOD catheter Cordis 6FR Cardinal 1 [id number] 192588 770522 070935 3 XBLAD 3.5 Health SH guide catheter Cordis 6Fr Cardinal 1 EX600 439870 276661 055968 10 [employer] Signature Audit [place] Stage Time Signature Unsigned Intra-Procedure 01/13/2017 Arsen Segundo 12:49:45 PM RT(R) Signatures Monitor : Alejo Burnett RT Signature : Date : Time : [id number] [place] [address]
--- NOTE | ~2017-01-12 | OP ---
PATIENT NAME: BAM DUNN MEDICAL RECORD: [id number] :60 LOCATION:D.M2 D.2103 ADMISSION DATE:01/12/17 SURGEON: ARPITA ROMAN MD DATE OF OPERATION: 01/13/2017 PROCEDURES: 1. Left heart catheterization. 2. Selective coronary angiography. 3. Left ventriculogram. 4. Vein graft angiography. INDICATION: Angina and coronary artery disease. PROCEDURE IN DETAIL: After informed consent was obtained and after detailed explanation of risks, benefits as well as alternative therapies, the patient elected to proceed with angiogram and heart catheterization. The right femoral area was prepped and draped in normal sterile fashion. The right femoral artery was cannulated via modified Seldinger technique with placement of 6-Azerbaijani sheath. All catheters exchanged through this sheath. FINDINGS: The left ventriculogram was performed in standard 30-degree CAMPOS view, reveals good cardiac wall motion throughout all segments. Overall ejection fraction estimated at 50%. SELECTIVE CORONARY ANGIOGRAPHY: 1. Left main is with no significant angiographic disease. 2. Left anterior descending has previously placed stents, these are widely patent with no significant restenosis. No disease elsewhere throughout the LAD or its branches. 3. LOPEZ is not grafted to the LAD from previous cardiac catheterization. 4. The left circumflex has previously placed stents in the ramus and circumflex. These are widely patent. 5. Vein graft to the terminal obtuse marginal was widely patent, unchanged from previous angiography. 6. Right coronary vein graft is widely patent, unchanged from previous angiography. OVERALL IMPRESSION: Wide patency of all the previously placed stents, wide patency of both vein graft unchanged from previous angiography. Continue medical management of his coronary artery disease and cardiac risk factors. TRANSINT:[id number] Voice Confirmation ID: [id number] DOCUMENT ID: [id number] ARPITA ROMAN MD CC: [id number] DICTATION DATE: 01/13/17 1246 TOUR CONSULTANT: 01/13/17 1642 DIS IN 01/13/17 [id number] [place] [address]
[~2017-01-12 22:11] MED LIST changes: -ISOSORBIDE MONO30 M1 PO; +ISOSORBIDE MONO60 M1 PO
[2017-01-12 23:02] LABS: BASOPHILS 0.4 % (0-2); EOSINOPHILS 1.9 % (0-7); HEMATOCRIT 40.5 % (42.0-54.0); HEMOGLOBIN 14.1 g/dL (13.5-17.5); LYMPHOCYTES 41.4 % (15-50); MCH 30.4 pg (26.0-34.0); MCHC 34.8 g/dL (31.0-37.0); MCV 87.3 fL (80.0-100.0); MONOCYTES 6.9 % (2-11); NEUTROPHILS 49.4 % (40-80); PLATELET COUNT 200 10x3/uL (130-400); RBC 4.64 10x6/uL (4.20-6.10); RDW 13.2 % (11.5-14.5); WBC 7.8 10x3/uL (4.8-10.8)
[2017-01-12 23:09] LABS: APTT 27.4 SECONDS (22.8-39.4); INR 0.96 (0.85-1.17); PROTIME 12.6 SECONDS (11.6-15.0)
[2017-01-12 23:19] LABS: ALBUMIN 3.4 g/dL (3.4-5.0); ALKALINE PHOSPHATASE 60 U/L (46-116); ALT (SGPT) 27 U/L (10-68); BILIRUBIN - TOTAL 0.22 mg/dL (0.2-1.3); CALC OSMOLALITY 286 mosm/kg (275-300); CALCIUM 8.7 mg/dL (8.5-10.1); CARBON DIOXIDE 27.1 mmol/L (21.0-32.0); CHLORIDE - SERUM 106 mmol/L (98-107); CREATININE - SERUM 1.8 mg/dL (0.6-1.3); GLUCOSE 133 mg/dL (74-106); POTASSIUM - SERUM 3.2 mmol/L (3.5-5.1); SODIUM 141 mmol/L (136-145); UREA NITROGEN 24 mg/dL (7-18); eGFR NON AFRICAN AMERICAN 42 mL/min (90-120)
[2017-01-12 23:26] LABS: CREATINE KINASE 165 UL (21-232); PRO BNP 154 pg/mL (0-125)
[2017-01-12 23:27] LABS: TROPONIN-I < 0.017 ng/mL (0.000-0.060)
[2017-01-13] VITALS: BP 133/95
[2017-01-13] MEDS ORDERED: METOPROLOL TART50 MG PO (00:39)
--- NOTE | 2017-01-13 00:40 | NUR ---
RECEIVED FROM ER VIA WC. AMBULATED TO BED WITH STEADY GAIT. ALERT/ORIENTED X 4. DENIES PAIN. IV IN L FA INTACT SL. ORIENTED TO ROOM AND CALL LIGHT. REQUESTED ORANGE JUICE.
[2017-01-13] MEDS ORDERED: CYCLOBENZAPRINE10 MG PO (00:41)
[2017-01-13] MEDS ORDERED: HCTZ25 MG PO (00:44)
[2017-01-13 02:58] VITALS: BP 133/95; Ht 180.3 cm; Wt 85.9 kg
[2017-01-13 04:00] VITALS: BP 99/55
--- NOTE | 2017-01-13 07:45 | NUR ---
REPORT RECIEVED. PT RESTING QUIETLY, RR EVEN AND UNLABORED. PT DENIES CHEST PAIN AND NEEDS AT THIS TIME. INTRODUCED SELF AND PLACED NAME ON WHITE BOARD. WILL CTM.
[2017-01-13 09:16] VITALS: BP 130/92
[2017-01-13 10:31] LABS: BASOPHILS 0.2 % (0-2); EOSINOPHILS 2.5 % (0-7); HEMATOCRIT 41.7 % (42.0-54.0); HEMOGLOBIN 14.2 g/dL (13.5-17.5); IMMATURE GRANULOCYTES 0.2 % (0-5); LYMPHOCYTES 42.4 % (15-50); MCH 29.8 pg (26.0-34.0); MCHC 34.1 g/dL (31.0-37.0); MCV 87.6 fL (80.0-100.0); MEAN PLATELET VOLUME 10.2 fL (7.4-10.4); MONOCYTES 7.5 % (2-11); NEUTROPHILS 47.2 % (40-80); PLATELET COUNT 189 10x3/uL (130-400); RBC 4.76 10x6/uL (4.20-6.10); RDW 13.3 % (11.5-14.5); WBC 6.3 10x3/uL (4.8-10.8)
[2017-01-13 10:42] LABS: ANION GAP 10.9 mmol/L (8-16); CALCIUM 8.7 mg/dL (8.5-10.1); CREATININE - SERUM 1.5 mg/dL (0.6-1.3)
[2017-01-13 11:00] LABS: POTASSIUM - SERUM 3.9 mmol/L (3.5-5.1)
[2017-01-13 11:56] VITALS: BP 126/86
--- NOTE | 2017-01-13 12:12 | NUR ---
VESSEL CAPTAIN CALLED TO PRE-OP PT, MEDS GIVEN, GAVE EDUCATION ON WHAT TO EXPECT. PT VERBALIZED UNDERSTANDING, RESTING QUIETLY, WILL CTM.
--- NOTE | 2017-01-13 12:20 | NUR ---
PT RESTING QUIELTY, TRANSFERRED TO YARDER OPERATOR. WILL ASSESS WHEN PT RETURNS FROM HEART CATH.
--- NOTE | 2017-01-13 13:45 | NUR ---
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 RR EVEN AND UNLABORED, VSS. PT SET UP ON FREQUENT VS. RIGHT GRION CATH SITE CDI, NO HEMATOMA OR BLEEDING NOTED. PT REQUESTED FOOD AND DRINK, BOTH WERE GIVEN. PT INSTRUCTED TO LAY FLAT FOR AT LEAST 2 HRS PER ORDERS. PT VERBALIZED UNDERSTANDING, PT IS ALERT AND ORIENTED. NS STARTED AT 200 ML PER HR X2 HRS. PT LEFT RESTING QUIETLY WILL CTM.
[2017-01-13 15:48] VITALS: BP 129/86
--- NOTE | 2017-01-13 16:17 | NUR ---
PT DISCHARGED. CHECKED SITE, STILL CDI, NO SIGNS OF BLEEDING OR HEMATOMA. RR EVEN AND UNLABORED, VSS. TELEMETRY BOX REMOVED AND RETURNED TO [facility]. IV CATHETER REMOVED WITH CATHETER INTACT. PEDAL PULSES +2. DISCHARGE INSTRUCTIONS PROVIDED, PT AND FAMILY VERBALIZED UNDERSTANDING. WILL BE TAKEN DOWN VIA WHEELCHAIR, WILL BE GOING HOME WITH FAMILY IN PERSONAL VEHICHLE.
== END 2017-01-13 16:15 | disposition home or self-care (01) ==
LOC: D.ER 22:11 → D.M2 23:45 → OBSVTIME 23:45 → D.M2 23:45
PROVIDERS: Emergency Medicine; ADMIT Internal Medicine Interventional Cardiology
DX: I25.119 Atherosclerotic heart disease of native coronary artery with unspecified angina pectoris (principal); Z95.5 Presence of coronary angioplasty implant and graft; Z95.1 Presence of aortocoronary bypass graft; I10 Essential (primary) hypertension; E78.5 Hyperlipidemia, unspecified; J44.9 Chronic obstructive pulmonary disease, unspecified; K21.9 Gastro-esophageal reflux disease without esophagitis

== ENCOUNTER → 2017-01-26 10:38 | Outpatient (CLI) | payer MEDICAID ==
[2017-01-13 02:58] VITALS: BMI 26.4
[~2017-01-26 10:38] MED LIST changes: +CYCLOBENZAPRINE10 MG PO; +HCTZ25 MG PO
== END | disposition home or self-care (01) ==
LOC: D.CT 10:38
DX: R07.9 Chest pain, unspecified (principal); R06.00 Dyspnea, unspecified; I25.10 Atherosclerotic heart disease of native coronary artery without angina pectoris; J44.9 Chronic obstructive pulmonary disease, unspecified

== ENCOUNTER 2017-01-31 19:17 | Emergency (ER) | payer MEDICAID ==
[2017-01-13 02:58] VITALS: BMI 26.4
[2017-01-31 20:01] LABS: BASOPHILS 0 % (0-2); EOSINOPHILS 0.1 % (0-7); HEMATOCRIT 44.1 % (42.0-54.0); HEMOGLOBIN 15.1 g/dL (13.5-17.5); IMMATURE GRANULOCYTES 1.3 % (0-5); LYMPHOCYTES 20.7 % (15-50); MCH 30.4 pg (26.0-34.0); MCHC 34.2 g/dL (31.0-37.0); MCV 88.7 fL (80.0-100.0); MONOCYTES 9.2 % (2-11); NEUTROPHILS 68.7 % (40-80); RBC 4.97 10x6/uL (4.20-6.10); WBC 13.7 10x3/uL (4.8-10.8)
[2017-01-31 20:15] LABS: PLATELET COUNT 227 10x3/uL (130-400)
[2017-01-31 20:33] LABS: ALBUMIN 3.3 g/dL (3.4-5.0); ANION GAP 17.8 mmol/L (8-16); BILIRUBIN - TOTAL 0.3 mg/dL (0.2-1.3); CALCIUM 9.4 mg/dL (8.5-10.1); CARBON DIOXIDE 21.4 mmol/L (21.0-32.0); CREATININE - SERUM 1.3 mg/dL (0.6-1.3); POTASSIUM - SERUM 4.2 mmol/L (3.5-5.1); PROTEIN - SERUM 6.1 g/dL (6.4-8.2)
== END 2017-01-31 20:39 | disposition home or self-care (01) ==
LOC: D.ER 19:17
PROVIDERS: Emergency Medicine
DX: J44.1 Chronic obstructive pulmonary disease with (acute) exacerbation (principal); I10 Essential (primary) hypertension

== ENCOUNTER 2017-02-10 17:43 | Emergency (ER) | payer MEDICAID ==
[2017-01-13 02:58] VITALS: BMI 26.4
[2017-02-10 18:49] LABS: BASOPHILS 0.2 % (0-2); EOSINOPHILS 0.9 % (0-7); HEMATOCRIT 43.8 % (42.0-54.0); IMMATURE GRANULOCYTES 1.1 % (0-5); LYMPHOCYTES 26.1 % (15-50); MCH 29.9 pg (26.0-34.0); MCHC 34.2 g/dL (31.0-37.0); MCV 87.4 fL (80.0-100.0); MEAN PLATELET VOLUME 10.7 fL (7.4-10.4); NEUTROPHILS 63.7 % (40-80); PLATELET COUNT 194 10x3/uL (130-400); RBC 5.01 10x6/uL (4.20-6.10); RDW 13.7 % (11.5-14.5)
[2017-02-10 19:04] LABS: ALBUMIN 3.1 g/dL (3.4-5.0); ALKALINE PHOSPHATASE 98 U/L (46-116); ALT (SGPT) 90 U/L (10-68); BILIRUBIN - TOTAL 0.48 mg/dL (0.2-1.3); CALC OSMOLALITY 279 mosm/kg (275-300); CALCIUM 8.5 mg/dL (8.5-10.1); CARBON DIOXIDE 20.2 mmol/L (21.0-32.0); CHLORIDE - SERUM 104 mmol/L (98-107); CREATININE - SERUM 1.4 mg/dL (0.6-1.3); GLUCOSE 101 mg/dL (74-106); POTASSIUM - SERUM 4.6 mmol/L (3.5-5.1); SODIUM 137 mmol/L (136-145); UREA NITROGEN 29 mg/dL (7-18); eGFR NON AFRICAN AMERICAN 56 mL/min (90-120)
[2017-02-10 19:16] LABS: CKMB 0.6 U/L (0.0-3.6); CREATINE KINASE 109 UL (21-232)
[2017-02-10 19:18] LABS: TROPONIN-I < 0.017 ng/mL (0.000-0.060)
== END 2017-02-10 20:51 | disposition home or self-care (01) ==
LOC: D.ER 17:43
PROVIDERS: Family Medicine
DX: R07.89 Other chest pain (principal); M94.0 Chondrocostal junction syndrome [Tietze]; I10 Essential (primary) hypertension; J44.9 Chronic obstructive pulmonary disease, unspecified; I25.810 Atherosclerosis of coronary artery bypass graft(s) without angina pectoris

== ENCOUNTER 2017-02-21 13:40 | Emergency (ER) | payer MEDICAID ==
[2017-01-13 02:58] VITALS: BMI 26.4
[2017-02-21 14:36] LABS: BASOPHILS 0.3 % (0-2); EOSINOPHILS 1.7 % (0-7); HEMATOCRIT 41.7 % (42.0-54.0); HEMOGLOBIN 14.2 g/dL (13.5-17.5); IMMATURE GRANULOCYTES 0.2 % (0-5); LYMPHOCYTES 36.4 % (15-50); MCH 30.1 pg (26.0-34.0); MCHC 34.1 g/dL (31.0-37.0); MCV 88.5 fL (80.0-100.0); MEAN PLATELET VOLUME 9.4 fL (7.4-10.4); MONOCYTES 7.1 % (2-11); NEUTROPHILS 54.3 % (40-80); RBC 4.71 10x6/uL (4.20-6.10); RDW 13.3 % (11.5-14.5)
[2017-02-21 14:39] LABS: PLATELET COUNT 313 10x3/uL (130-400)
[2017-02-21 14:54] LABS: ALBUMIN 3.2 g/dL (3.4-5.0); ALKALINE PHOSPHATASE 71 U/L (46-116); ALT (SGPT) 26 U/L (10-68); BILIRUBIN - TOTAL 0.22 mg/dL (0.2-1.3); CALC OSMOLALITY 280 mosm/kg (275-300); CALCIUM 8.7 mg/dL (8.5-10.1); CARBON DIOXIDE 25.2 mmol/L (21.0-32.0); CHLORIDE - SERUM 106 mmol/L (98-107); CREATININE - SERUM 1.3 mg/dL (0.6-1.3); GLUCOSE 97 mg/dL (74-106); POTASSIUM - SERUM 3.9 mmol/L (3.5-5.1); SODIUM 139 mmol/L (136-145); UREA NITROGEN 22 mg/dL (7-18); eGFR NON AFRICAN AMERICAN 61 mL/min (90-120)
[2017-02-21 15:06] LABS: CKMB 0.6 U/L (0.0-3.6); CREATINE KINASE 79 UL (21-232)
[2017-02-21 15:09] LABS: TROPONIN-I < 0.017 ng/mL (0.000-0.060)
== END 2017-02-21 17:10 | disposition home or self-care (01) ==
LOC: D.ER 13:40
PROVIDERS: Emergency Medicine
DX: R07.89 Other chest pain (principal); I10 Essential (primary) hypertension; J44.9 Chronic obstructive pulmonary disease, unspecified

== ENCOUNTER 2017-06-09 08:54 | Outpatient (CLI) | payer MEDICAID ==
[~2017-06-09] VITALS: Ht 180.3 cm; Wt 90.9 kg
--- NOTE | ~2017-06-09 | OP ---
PATIENT NAME: BAM DUNN MEDICAL RECORD: [id number] :60 LOCATION:D.CAT ADMISSION DATE: SURGEON: ARPITA ROMAN MD DATE OF OPERATION: 06/09/2017 DATE OF SERVICE: 06/09/2017 PROCEDURES: 1. PTCA stent LAD. 2. Left heart catheterization. 3. Selective coronary angiography. 4. Vein graft angiography. 5. LOPEZ angiography. 6. Left ventriculogram. INDICATION: Angina and coronary artery disease. PROCEDURE IN DETAIL: After informed consent was obtained and after a detailed explanation of risks, benefits as well as alternative therapies, the patient elected to proceed with angiogram and angioplasty. The right femoral area was prepped and draped in normal sterile fashion. The right femoral artery was cannulated via modified Seldinger technique with placement of 6-Congolese sheath. All catheters exchanged through this sheath. FINDINGS: Left ventriculogram was performed in the standard 30-degree CAMPOS view reveals good cardiac wall motion throughout all segments. Overall ejection fraction is 50%. SELECTIVE CORONARY ANGIOGRAPHY: 1. The left main is with no significant angiographic disease. 2. Left anterior descending has a long area of greater than 80% stenosis in the mid vessel. 3. LOPEZ to the LAD is closed. 4. Left circumflex has previously placed stents, these are widely patent. No renal artery stenosis. No disease elsewhere throughout the circumflex or its branches. 5. The right coronary has a total occlusion proximally. 6. Vein graft to the right coronary is widely patent. The distal right coronary is patent as well. 7. There is a vein graft to the LAD diagonal as well that is widely patent. The diagonal was small, diffusely diseased, but patent. PTCA STENT OF THE LAD: The stent used 2.5 x 26 and 2.5 x 18. Result was 0% residual stenosis. OVERALL IMPRESSION: Successful percutaneous transluminal coronary angioplasty stent of the left anterior descending going from 80% initial stenosis to 0% residual stenosis. TRANSINT:[id number] Voice Confirmation ID: [id number] DOCUMENT ID: [id number] OPERATIVE REPORT [id number] BAM DUNN ARPITA BUSBY MD at 1324 CC: [id number] DICTATION DATE: 06/09/17 1420 CAKE WASHER: 06/09/17 1437 DEP CLI 06/09/17 [facility] [address] [facility] [place] [address]
--- NOTE | ~2017-06-09 | HEMODYNAMI ---
PATIENT:BAM DUNN MEDICAL RECORD: [id number] : 60 LOCATION:[facility] ADMISSION DATE: 06/09/17 Generatedon:06/09/201714:21 Patient name: BAM DUNN Patient #: [id number] SSN: [id number] : 1960 Date of study: 06/09/2017 Page: Of Hemodynamic Procedure Report Patient Data Patient Demographics Procedure consent was obtained First Name: BAM Gender: Male Last Name: SHAUN : 1960 Middle Initial: D Age: 56 year(s) Patient #: [id number] Race: SSN: [id number] Additional ID: [id number] Contact details Address: [place] [address] State: [place] City: [place] Zip code: [address] Past Medical History Allergies: No known allergies Admission Admission Data Admission Date: 06/09/2017 Admission Time: 8:54 Lab Results Lab Result Date: 06/09/2017 Lab Result Time: 0:00 Biochemistry Name Units Result Min Max BUN mg/dl 27 --(----)-* 7 18 Creatinine mg/dl 1.5 --(----)-* 0.6 1.3 CBC Name Units Result Min Max Hemoglobin g/dl 16.3 --(--*-)-- 13.5 17.5 Procedure Procedure Types Cath Procedure Diagnostic Procedure [facility] w/Coronaries PCI Procedure Coronary Stent Coronary Stent Initial Miscellaneous Procedures Procedure Description Procedure Date Procedure Date: 06/09/2017 Procedure Start Time: 13:58 Procedure End Time: 14:21 Procedure Staff Name Function Grant Villalta MD Performing Physician Ranjana Field RT Monitor Grace Marin RT Scrub Jessica Roman RN Nurse Jeevan Styles RT Monitor Procedure Data Cath Procedure Fluoroscopy Diagnostic fluoroscopy Total fluoroscopy Time: 5.7 time: 5.7 min min Diagnostic fluoroscopy Total fluoroscopy dose: dose: 1394 mGy 1394 mGy Contrast Material Contrast Material Type Amount (ml) Isovue 300 123 Entry Location Entry Primary Successful Side Size Upsize Upsize Entry Closure Succes sful Closure Location (Fr) 1 (Fr) 2 (Fr) Remarks Device Remarks Femoral Right 5 Fr 6 Fr Exoseal artery Short Estimated blood loss: 10 ml Diagnostic catheters Device Type Used For End Catheter Placement MULTIPACK JL 4.0 5Fr Procedure catheter MULTIPACK 3DRC 5Fr Procedure catheter DIAGNOSTIC AR 1 MOD 5Fr Procedure catheter ([id number]) MULTIPACK Pigtail 5 Fr Procedure catheter Procedure Medications Medication Administration Route Dosage Oxygen NC 2 l/min Lidocaine 2% added to field 20 Heparin Flush Bag added to field 2 bags (1000units/500ml NS) 0.9% NaCl I.V. 100 ml/hr Versed I.V. 1 mg Fentanyl I.V. 50 mcg Versed I.V. 1 mg Fentanyl I.V. 50 mcg Versed I.V. 1 mg Fentanyl I.V. 50 mcg Heparin Bolus I.V. 4000 units Plavix P.O. 75 mg Hemodynamics Rest HGB: 16.3 (g/dl) Heart Rate: 70 (bpm) Snapshots Pre Cath Intra NCS Post Cath Vital Signs Time Heart Resp SPO2 etCO2 NIBP (mmHg) Rhythm Pain Sedation Rate (ipm) (%) (mmHg) Status Level (bpm) 13:23:56 69 16 98 0 138/84(106) NSR 0 (11) 10(A) , No pain 13:28:08 67 14 97 0 136/89(109) NSR 0 (11) 10(A) , No pain 13:32:18 69 16 95 0 128/95(106) NSR 0 (11) 10(A) , No pain 13:36:28 69 15 96 30.7 126/88(100) NSR 0 (11) 10(A) , No pain 13:40:40 70 12 95 12 116/82(100) NSR 0 (11) 10(A) , No pain 13:44:50 69 15 96 26.2 128/78(95) NSR 0 (11) 10(A) , No pain 13:48:56 67 16 96 24 120/85(99) NSR 0 (11) 10(A) , No pain 13:53:06 67 16 97 29.9 118/85(103) NSR 0 (11) 10(A) , No pain 13:57:17 67 16 95 39.8 116/76(107) NSR 0 (11) 9(A) , No pain 14:01:25 68 15 94 18 120/85(101) NSR 0 (11) 9(A) , No pain 14:05:37 69 15 96 27.7 114/77(93) NSR 0 (11) 9(A) , No pain 14:09:47 68 16 96 32.3 108/75(92) NSR 0 (11) 9(A) , No pain 14:13:53 69 16 96 32.3 119/83(99) NSR 0 (11) 10(A) , No pain 14:18:03 68 13 93 36.8 122/82(97) NSR 0 (11) 10(A) , No pain Medications Time Medication Route Dose Verified Delivered Reason Notes Effectiveness by by 13:38:01 Oxygen NC 2 Grant Buffie used for l/min Pawan Roman RN procedure 13:38:08 Lidocaine 2% added 20ml Grant Grant for local to vial Pawan Villalta MD anesthetic field 13:38:14 Heparin Flush added 2 Grant Grant used for Bag to bags Pawan Villalta MD procedure (1000units/500ml field NS) 13:38:24 0.9% NaCl I.V. 100 Grant Buffie Per physician ml/hr Pawan Roman RN 13:55:26 Versed I.V. 1 mg Grant Buffie for sedation Pawan Roman RN 13:55:31 Fentanyl I.V. 50 Grant Buffie for sedation mcg Pawan Roman RN 13:59:57 Versed I.V. 1 mg Grant Buffie for sedation Pawan Roman RN 14:00:01 Fentanyl I.V. 50 Grant Buffie for sedation mcg Pawan Roman RN 14:03:53 Versed I.V. 1 mg Grant Buffie for sedation Pawan Roman RN 14:03:57 Fentanyl I.V. 50 Grant Buffie for sedation mcg Pawan Roman RN 14:06:01 Heparin Bolus I.V. 4000 Grant Buffie for verifi ed units Pawan Roman RN anticoagulation with dr villalta 14:16:34 Plavix P.O. 75 mg Grant Roman RN antiplatelet therapy Procedure Log Time Note 13:00:47 Grace Marin RT(R) sent for patient. Start room use. 13:13:11 Diagnostic Cath Status : Elective 13:13:55 Time tracking: Regular hours 13:14:01 Plan of Care:Hemodynamics will remain stable., Cardiac rhythm will remain stable., Comfort level will be maintained., Respiratory function will remain adequate., Patient/ family verbilizes understanding of procedure., Procedure tolerated without complication., Recovers from procedure without complications.. 13:14:15 Patient received from Pre/Post Procedure Room to CCL 2 Alert and oriented. Tansferred to table in Supine position. 13:14:17 Warm blankets applied, and khadar hugger turned on for patient comfort. 13:14:17 Correct patient and procedure confirmed by team. 13:14:19 Signed procedure consent form obtained from patient. 13:22:44 ECG and BP/O2 sat monitors applied to patient. 13:22:47 Vital chart was started 13:22:50 Baseline sample Acquired. 13:23:31 Rhythm: sinus rhythm 13:23:33 Full Disclosure recording started 13:23:49 H&P Date Dictated: 06/08/2017 Within 30 days and on chart., H&P Addendum completed by physician on day of procedure. (MUST COMPLETE FOR ALL OUTPATIENTS). 13:23:52 Pre-procedure instructions explained to patient. 13:23:53 Pre-op teaching completed and patient verbalized understanding. 13:23:54 Family in waiting room. 13:23:55 Patient NPO since Midnight. 13:25:06 Is the patient allergic to Iodine/contrast media? No. 13:25:07 Was the patient premedicated? No 13:26:18 Is patient on blood thinner?Yes 13:26:21 ACC The patient was administered the following blood thiners within the last 24 hours: ACCPlavix 13:27:37 Patient diabetic? No. 13:27:40 Previous problem with sedation/anesthesia? No ? 13:27:45 Snore? No 13:27:46 Sleep apnea? No 13:27:47 Deviated septum? No 13:27:48 Opens mouth fully? Yes 13:27:49 Sticks out tongue? Yes 13:27:58 Airway obstruction? Yes copd 13:28:01 Dentures? No ? 13:28:04 Pre procedure: right dorsailis pedis pulse 1+ Palpable, but thready & weak; easily obliterated 13:28:06 Pre procedure: left dorsailis pedis pulse 1+ Palpable, but thready & weak; easily obliterated 13:28:08 Patient pain scale 0/10 ?. 13:28:17 IV patent on arrival in left forearm with 0.9% NaCl at [facility]. 13:30:00 Lab Result : BUN 27 mg/dl 13:30:00 Lab Result : Hemoglobin 16.3 g/dl 13:30:00 Lab Result : Creatinine 1.5 mg/dl 13:30:03 Lab results completed and on chart. 13:30:09 Right groin area was prepped with chlora-prep and draped in sterile fashion 13:30:10 Alarms reviewed by R. N. 13:30:10 Sharps counted by scrub and verified by R.N. 13:38:01 Oxygen 2 l/min NC was administered by Jessica Roman RN; used for procedure; 13:38:08 Lidocaine 2% 20ml vial added to field was administered by Grant Villalta MD; for local anesthetic; 13:38:14 Heparin Flush Bag (1000units/500ml NS) 2 bags added to field was administered by Grant Villalta MD; used for procedure; 13:38:24 0.9% NaCl 100 ml/hr I.V. was administered by Jessica Roman RN; Per physician; 13:42:52 Use device set Femoral Dx 13:42:54 ACIST Syringe (54293) opened to sterile field. 13:42:55 Bag Decanter (2002) opened to sterile field. 13:42:55 Medline Cath Pack ([id number]) opened to sterile field. 13:43:12 DIAGNOSTIC WIRE .035 260cm J wire (067607) opened to sterile field. 13:43:18 SHEATH 5FR [place] (DJR582) opened to sterile field. 13:43:20 ACIST Hand Control (30311) opened to sterile field. 13:43:22 ACIST Manifold (59793) opened to sterile field. 13:43:27 DIAGNOSTIC Multipack 5Fr catheter set (BA0120) opened to sterile field. 13:43:46 Tegaderm 4 x 4 (1626W) opened to sterile field. 13:53:18 Physician arrived 13:53:19 --------ALL STOP TIME OUT------ 13:53:20 Final Timeout: patient, procedure, and site verified with staff and physician. All members of the team are in agreement. 13:53:30 Right groin site verified by team. 13:53:36 Physical assessment completed. ASA score P 2 - A patient with mild systemic disease as per Grant Villalta MD. 13:53:40 Sedation plan: IV Moderate Sedation Medication:Versed, Fentanyl 13:55:26 Versed 1 mg I.V. was administered by Jessica Roman RN; for sedation; 13:55:31 Fentanyl 50 mcg I.V. was administered by Jessica Roman RN; for sedation; 13:58:21 Procedure started. 13:58:26 Local anesthetic to right femoral artery with Lidocaine 2% by Grant Villalta MD.INITIAL ACCESS ONLY 13:59:27 A 5 Fr sheath was inserted into the Right Femoral artery 13:59:57 Versed 1 mg I.V. was administered by Jessica Roman RN; for sedation; 14:00:01 Fentanyl 50 mcg I.V. was administered by Jessica Roman RN; for sedation; 14:01:41 A MULTIPACK JL 4.0 5Fr catheter was advanced over the wire and used for Procedure. 14:01:44 LCA angiography performed. 14:02:05 Catheter removed. 14:02:46 A MULTIPACK 3DRC 5Fr catheter was advanced over the wire and used for Procedure. 14:03:15 LOPEZ to LAD angiography performed. 14:03:53 Versed 1 mg I.V. was administered by Jessica Roman RN; for sedation; 14:03:57 Fentanyl 50 mcg I.V. was administered by Jessica Roman RN; for sedation; 14:04:12 RCA angiography performed. 14:04:25 SVG to Diag angiography performed. 14:04:28 Catheter removed. 14:04:36 A DIAGNOSTIC AR 1 MOD 5Fr catheter ([id number]) was advanced over the wire and used for Procedure. 14:04:42 SVG to RCA angiography performed. 14:05:39 A MULTIPACK Pigtail 5 Fr catheter was advanced over the wire and used for Procedure. 14:06:01 Heparin Bolus 4000 units I.V. was administered by Jessica Roman RN; for anticoagulation; verified with dr villalta 14:06:27 LV gram done using CAMPOS 14:06:34 EF : 50 % 14:06:36 Catheter removed. 14:06:39 WHISPER 190cm wire ([id number]) opened to sterile field. 14:06:40 SHEATH 6FR [place] (SVD401) opened to sterile field. 14:06:41 INFLATOR Merit BasixCompak (TJ3234) opened to sterile field. 14:06:51 Proceeding to intervention. 14:07:03 Sheath upsized to a 6 Fr Short. 14:07:20 GUIDE 6FR XBLAD 3.5 catheter ([id number]) opened to sterile field. 14:07:34 6 Fr XBLAD 3.5 guide catheter was inserted over the wire 14:08:17 WHISPER wire advanced. 14:08:19 Wire advanced across lesion. 14:09:28 Inflation Number: 1 A ERA RX 2.5 x 26 stent ([id number]) was prepped and advanced across the Mid LAD. The stent was deployed at 15 DEION for 0:10 (min:sec). 14:10:59 Stent catheter was removed intact over wire. 14:13:19 Inflation Number: 1 A ERA RX 2.5 x 18 stent ([id number]) was prepped and advanced across the Dist LAD. The stent was deployed at 9 DEION for 0:10 (min:sec). 14:14:21 Stent catheter was removed intact over wire. 14:14:22 Wire removed. 14:14:22 Guide catheter removed. 14:14:37 EXOSEAL 6Fr (EX600) opened to sterile field. 14:14:51 Sheath removed intact; hemostasis achieved with Exoseal to the Right Femoral artery. 14:14:54 Procedure ended.(Physican Out) 14:16:34 Plavix 75 mg P.O. was administered by Jessica Roman RN; for antiplatelet therapy; 14:17:03 Fluoroscopy time 05.70 minutes. 14:17:56 Procedure type changed to Cath procedure, Diagnostic procedure, LHC, LHC w/Coronaries, PCI procedure, Coronary Stent, Coronary Stent Initial, Miscellaneous Procedures 14:18:33 Flurop Dose total: 1394 14:18:33 Fluoroscopy dose: 1394 mGy 14:18:42 Contrast amount:Isovue 300 123ml. 14:18:44 Sharps counted by scrub and verified by R.N. 14:19:35 Insertion/operative site no bleeding no hematoma. 14:19:38 Post-op/insertion site Right Femoral artery dressed using a 4 x 4 and Tegaderm. 14:19:42 Post right femoral artery:stable 14:19:50 Post-procedure physical assessment completed. ASA score P 2 - A patient with mild systemic disease as per Grant Villalta MD. 14:20:01 Post procedure rhythm: sinus rhythm 14:20:06 Estimated blood loss: 10 ml 14:20:08 Post procedure instruction explained to patient.Patient verbalizes understanding. 14:20:09 Patient needs reinforcement of post procedure teaching. 14:20:58 Procedure and supply charges have been captured, reviewed, submitted and are correct. 14:20:59 Vital chart was stopped 14:21:00 See physician's report for complete and final results. 14:21:04 Report given to Pre/Post Procedure Room. 14:21:07 Patient transfered to Pre/Post Procedure Room with Stretcher. 14:21:10 Procedure ended. 14:21:10 Full Disclosure recording stopped 14:21:15 End room use (Document Last) Intervention Summary Intervention Notes Time ActionType Lesion and Equipment Used Action# Pressure Duration Attributes 14:09:28 Place stent Mid LAD ERA RX 2.5 x 1 15 00:10 26 stent ([id number]) 14:13:19 Place stent Dist LAD ERA RX 2.5 x 1 9 00:10 18 stent ([id number]) Device Usage Item Name Manufacture Quantity Catalog Hospital Part Current [facility] Lot# / Number Charge Number Stock Stock Serial# Code ACIST Syringe Acist 1 28264 474386 236342 220924 20 (46342) [employer] Bag Decanter Microtek 1 478346 70582 743892 5 () Medical Inc. Medline Cath Cardinal 1 [id number] 894215 81319 462322 5 [facility] ([id number]) DIAGNOSTIC St Erik 1 812467 921101 766211 138830 30 WIRE .035 260cm J wire (959269) SHEATH 5FR Terumo 1 [id number] 048009 081972 131043 40 [place] (TUQ852) ACIST Hand Acist 1 61455 143600 456752 128113 5 Control Medical (11165) Systems Inc ACIST Manifold Acist 1 39451 111730 623439 934306 5 (11917) [employer] Systems Inc DIAGNOSTIC Cardinal 1 [id number] 499720 13514 034875 30 Multipack 5Fr Health catheter set (EX2704) Tegaderm 4 x 4 3M 1 1626W 014574 646368 311176 5 (1626W) MULTIPACK JL Cardinal 1 696986 5 4.0 5Fr Health catheter MULTIPACK 3DRC Cardinal 1 943967 5 5Fr catheter Health DIAGNOSTIC AR Cardinal 1 [id number] 167766 165172 332687 15 1 MOD 5Fr Health catheter ([id number]) MULTIPACK Cardinal 1 062643 5 Pigtail 5 Fr Health catheter WHISPER 190cm Zaragoza 1 [id number] 880635 050205 074623 5 wire Vascular ([id number]) SHEATH 6FR Terumo 1 KVM822 907225 779340 512929 40 [place] (TWG152) INFLATOR Merit Merit 1 WH1834 614577 127043 623459 15 [facility] Medical (KP6033) GUIDE 6FR Cardinal 1 [id number] 404118 183179 701089 10 XBLAD 3.5 Health catheter ([id number]) ERA RX 2.5 x Medtronic 1 [id number] 765937 4271044 151681 5 [id number] 26 stent ([id number]) ERA RX 2.5 x Medtronic 1 [id number] 327177 3048379 597871 5 [id number] 18 stent ([id number]) EXOSEAL 6Fr Cardinal 1 EX600 704279 376097 818041 10 (EX600) Health Signature Audit [place] Stage Time Signature Unsigned Intra-Procedure 06/09/2017 Jeevan Styles 2:21:37 PM RT(R) (CV) Signatures Monitor : Ranjana Field RT Signature : Date : Time : Monitor : Jeevan Styles RT Signature : Date : Time : [place] [address] [address] [place] [address]
[2017-06-09] MEDS ORDERED: ADALAT CC90 MG PO (09:23)
[2017-06-09] MEDS ORDERED: ELAVIL25 MG PO (09:24)
[2017-06-09] MEDS ORDERED: TENORMIN50 MG PO (09:25)
[2017-06-09 09:40] VITALS: BP 123/86; Ht 180.3 cm; Wt 90.9 kg
[2017-06-09 09:56] LABS: BASOPHILS 0.4 % (0-2); EOSINOPHILS 2.1 % (0-7); HEMATOCRIT 46.8 % (42.0-54.0); HEMOGLOBIN 16.3 g/dL (13.5-17.5); IMMATURE GRANULOCYTES 0.1 % (0-5); LYMPHOCYTES 34.2 % (15-50); MCH 30.1 pg (26.0-34.0); MCHC 34.8 g/dL (31.0-37.0); MCV 86.3 fL (80.0-100.0); MEAN PLATELET VOLUME 10.3 fL (7.4-10.4); MONOCYTES 6.9 % (2-11); NEUTROPHILS 56.3 % (40-80); RBC 5.42 10x6/uL (4.20-6.10); RDW 13.1 % (11.5-14.5); WBC 8.2 10x3/uL (4.8-10.8)
[2017-06-09 09:57] LABS: PLATELET COUNT 229 10x3/uL (130-400)
[2017-06-09 10:13] LABS: ANION GAP 14.2 mmol/L (8-16); CALCIUM 9.2 mg/dL (8.5-10.1); CARBON DIOXIDE 24.1 mmol/L (21.0-32.0); CREATININE - SERUM 1.5 mg/dL (0.6-1.3); POTASSIUM - SERUM 4.3 mmol/L (3.5-5.1)
== END 2017-06-09 18:00 | disposition home or self-care (01) ==
LOC: D.CATH 08:54
PROVIDERS: Internal Medicine Interventional Cardiology
DX: I25.119 Atherosclerotic heart disease of native coronary artery with unspecified angina pectoris (principal); I25.709 Atherosclerosis of coronary artery bypass graft(s), unspecified, with unspecified angina pectoris; Z01.812 Encounter for preprocedural laboratory examination
CPT/HCPCS: 93459; C9600

== ENCOUNTER 2017-07-11 18:45 | Emergency (ER) | payer MEDICAID ==
[2017-06-09 09:40] VITALS: BMI 27.9
[~2017-07-11 18:45] MED LIST changes: +ADALAT CC90 MG PO; +ELAVIL25 MG PO; +TENORMIN50 MG PO
== END 2017-07-11 22:54 | disposition home or self-care (01) ==
LOC: D.ER 18:45
DX: J20.9 Acute bronchitis, unspecified (principal); I10 Essential (primary) hypertension; J44.9 Chronic obstructive pulmonary disease, unspecified

== ENCOUNTER → 2017-08-07 08:10 | Outpatient (CLI) | payer MEDICAID ==
[2017-06-09 09:40] VITALS: BMI 27.9
[~2017-08-07 08:10] MED LIST changes: +BREO ELLIPTA 21 EACH; +IPRAT-ALBUT 0.5-3 ML UPD; +PROVENTIL/2.5 MG/3 M INH
== END | disposition home or self-care (01) ==
LOC: D.CT 08:10
DX: R91.1 Solitary pulmonary nodule (principal)

== ENCOUNTER 2017-08-22 08:25 | Outpatient (CLI) | payer MEDICAID ==
[~2017-08-22] VITALS: Ht 180.3 cm; Wt 92.3 kg
--- NOTE | ~2017-08-22 | HEMODYNAMI ---
PATIENT:BAM DUNN MEDICAL RECORD: [id number] : 60 LOCATION:[facility] ADMISSION DATE: 08/22/17 Generatedon:08/22/201710:38 Patient name: BAM DUNN Patient #: [id number] SSN: [id number] : 1960 Date of study: 08/22/2017 Page: Of Hemodynamic Procedure Report Patient Data Patient Demographics Procedure consent was obtained First Name: BAM Gender: Male Last Name: SHAUN : 1960 Middle Initial: D Age: 56 year(s) Patient #: [id number] Race: SSN: [id number] Additional ID: [id number] Contact details Address: [address] [address] State: [place] City: [place] Zip code: [address] Past Medical History Allergies: No known allergies Admission Admission Data Admission Date: 08/22/2017 Admission Time: 8:25 Admit Source: Other Procedure Procedure Types Cath Procedure Diagnostic Procedure LHC LHC w/Coronaries w/Grafts Procedure Description Procedure Date Procedure Date: 08/22/2017 Procedure Start Time: 10:21 Procedure End Time: 10:35 Procedure Staff Name Function Grant Villalta MD Performing Physician Alejo Burnett RT Scrub Jessica Roman RN Nurse Arsen Segundo RT Monitor Procedure Data Cath Procedure Fluoroscopy Diagnostic fluoroscopy Total fluoroscopy Time: 2.3 time: 2.3 min min Diagnostic fluoroscopy Total fluoroscopy dose: 176 dose: 176 mGy mGy Contrast Material Contrast Material Type Amount (ml) Isovue 300 71 Entry Location Entry Primary Successful Side Size Upsize Upsize Entry Closure Succes sful Closure Location (Fr) 1 (Fr) 2 (Fr) Remarks Device Remarks Femoral Right 5 Fr Exoseal artery Estimated blood loss: 10 ml Diagnostic catheters Device Type Used For End Catheter Placement MULTIPACK Pigtail 5 Fr Procedure catheter MULTIPACK JL 4.0 5Fr Procedure catheter MULTIPACK 3DRC 5Fr Procedure catheter DIAGNOSTIC AR 2 MOD 5 Fr Procedure catheter ([id number]) Procedure Complications No complications Procedure Medications Medication Administration Route Dosage Oxygen NC 2 l/min Lidocaine 2% added to field 20 Heparin Flush Bag added to field 2 bags (1000units/500ml NS) 0.9% NaCl I.V. 100 ml/hr Versed I.V. 1 mg Fentanyl I.V. 50 mcg Versed I.V. 1 mg Fentanyl I.V. 50 mcg Versed I.V. 0.5 mg Fentanyl I.V. 25 mcg Hemodynamics Rest Heart Rate: 73 (bpm) Snapshots Pre Cath Intra NCS Post Cath Vital Signs Time Heart Resp SPO2 etCO2 NIBP (mmHg) Rhythm Pain Sedation Rate (ipm) (%) (mmHg) Status Level (bpm) 10:01:03 74 16 96 24.7 137/102(125) NSR 0 (11) 10(A) , No pain 10:05:19 74 27 96 15.7 137/100(109) NSR 0 (11) 10(A) , No pain 10:09:35 73 14 94 27.7 130/104(116) NSR 0 (11) 10(A) , No pain 10:13:47 74 13 94 21.7 134/101(123) NSR 0 (11) 10(A) , No pain 10:18:01 73 15 96 33 123/93(104) NSR 0 (11) 10(A) , No pain 10:22:13 72 13 95 26.2 118/89(101) NSR 0 (11) 9(A) , No pain 10:26:21 73 15 96 22.5 125/98(117) NSR 0 (11) 9(A) , No pain 10:31:26 74 13 97 27.7 124/82(112) NSR 0 (11) 10(A) , No pain 10:35:38 74 20 97 30 122/85(101) NSR 0 (11) 10(A) , No pain Medications Time Medication Route Dose Verified Delivered Reason Notes Effe ctiveness by by 9:59:27 Oxygen NC 2 Grant Lopez used for l/min Pawan Roman dry cure worker 9:59:35 Lidocaine 2% added 20ml Grant Burns for local to vial Pawan Villalta MD anesthetic field 9:59:42 Heparin Flush added 2 Grant Burns used for Bag to bags Pawan Villalta MD procedure (1000units/500ml field NS) 9:59:52 0.9% NaCl I.V. 100 Grant Lopez Per ml/hr Pawan Roman RN physician 10:18:32 Versed I.V. 1 mg Grant Lopez for Pawan Roman RN sedation 10:18:38 Fentanyl I.V. 50 Grant Lopez for dee dee Roman RN sedation 10:22:37 Versed I.V. 1 mg Grant Lopez for Pawan Roman RN sedation 10:22:41 Fentanyl I.V. 50 Grant Lopez for dee dee Roman RN sedation 10:27:32 Versed I.V. 0.5 Grant Lopez for mg Pawan Roman RN sedation 10:27:38 Fentanyl I.V. 25 Grant Lopez for mcg Pawan Roman RN sedation Procedure Log Time Note 9:30:18 Jessica Roman RN sent for patient. Start room use. 9:41:02 Informed consent obtained and on chart 9:41:05 Admit Source: Other 9:42:18 Time tracking: Regular hours 9:42:22 Plan of Care:Hemodynamics will remain stable., Cardiac rhythm will remain stable., Comfort level will be maintained., Respiratory function will remain adequate., Patient/ family verbilizes understanding of procedure., Procedure tolerated without complication., Recovers from procedure without complications.. 9:42:35 H&P Date Dictated: 08/21/2017 Within 30 days and on chart., H&P Addendum completed by physician on day of procedure. (MUST COMPLETE FOR ALL OUTPATIENTS). 9:44:41 Patient received from Pre/Post Procedure Room to CCL 3 Alert and oriented. Tansferred to table in Supine position. 9:44:41 Warm blankets applied, and khadar hugger turned on for patient comfort. 9:44:42 Correct patient and procedure confirmed by team. 9:44:42 ECG and BP/O2 sat monitors applied to patient. 9:44:43 Pre-procedure instructions explained to patient. 9:44:44 Pre-op teaching completed and patient verbalized understanding. 9:44:46 Family in waiting room. 9:44:47 Patient NPO since Midnight. 9:44:55 Patient allergic to No known allergies 9:44:57 Is the patient allergic to Iodine/contrast media? No. 9:55:14 Is patient on blood thinner?Yes 9:55:18 ACC The patient was administered the following blood thiners within the last 24 hours: ACCPlavix 9:55:21 Patient diabetic? No. 9:55:24 Previous problem with sedation/anesthesia? No ? 9:55:25 Snore? Yes 9:55:33 Sleep apnea? No 9:55:34 Deviated septum? No 9:55:35 Opens mouth fully? Yes 9:55:36 Sticks out tongue? Yes 9:55:39 Airway obstruction? Yes COPD 9:55:52 Dentures? No ? 9:57:17 Pre procedure: right dorsailis pedis pulse 1+ Palpable, but thready & weak; easily obliterated 9:57:24 Patient pain scale 0/10 ?. 9:57:36 IV patent on arrival in left forearm with 0.9% NaCl at KVO. 9:57:38 Lab results completed and on chart. 9:57:43 Right groin area was prepped with chlora-prep and draped in sterile fashion 9:57:44 Alarms reviewed by R. N. 9:57:45 Sharps counted by scrub and verified by R.N. 9:58:54 Use device set Femoral Dx 9:58:56 Tegaderm 4 x 4 ([id number]) opened to sterile field. 9:58:58 PERCUTANEOUS ENTRY 19GA needle opened to sterile field. 9:59:00 ACIST Hand Control (04230) opened to sterile field. 9:59:00 ACIST Manifold (77668) opened to sterile field. 9:59:02 ACIST Syringe (17260) opened to sterile field. 9:59:03 Bag Decanter (2002) opened to sterile field. 9:59:04 Medline Cath Pack ([id number]) opened to sterile field. 9:59:11 SHEATH 5FR [place] (GRG530) opened to sterile field. 9:59:11 DIAGNOSTIC WIRE .035 260cm J wire (848304) opened to sterile field. 9:59:12 DIAGNOSTIC Multipack 5Fr catheter set (NE8891) opened to sterile field. 9:59:27 Oxygen 2 l/min NC was administered by Jessica Roman RN; used for procedure; 9:59:35 Lidocaine 2% 20ml vial added to field was administered by Grant Villalta MD; for local anesthetic; 9:59:42 Heparin Flush Bag (1000units/500ml NS) 2 bags added to field was administered by Grant Villalta MD; used for procedure; 9:59:52 0.9% NaCl 100 ml/hr I.V. was administered by Jessica Roman RN; Per physician; 9:59:57 Vital chart was started 10::06 --------ALL STOP TIME OUT------ ::07 Final Timeout: patient, procedure, and site verified with staff and physician. All members of the team are in agreement. 10:17:11 Right groin site verified by team. 10:17:13 Physical assessment completed. ASA score P 2 - A patient with mild systemic disease as per Grant Villalta MD. 10::17 Sedation plan: IV Moderate Sedation Medication:Versed, Fentanyl 10:18:32 Versed 1 mg I.V. was administered by Jessica Roman RN; for sedation; 10:18:38 Fentanyl 50 mcg I.V. was administered by Jessica Roman RN; for sedation; 10:21:55 Procedure started. 10::55 Full Disclosure recording started 10::58 Local anesthetic to right femoral artery with Lidocaine 2% by Grant Villalta MD.INITIAL ACCESS ONLY 10:22:13 Baseline sample Acquired. 10:22:15 Rhythm: sinus rhythm 10:22:37 Versed 1 mg I.V. was administered by Jessica Roman RN; for sedation; 10:22:39 Zero performed for pressure channel P1 10::41 Fentanyl 50 mcg I.V. was administered by Jessica Roman RN; for sedation; 10:23:00 A 5 Fr sheath was inserted into the Right Femoral artery 10:23:12 A MULTIPACK Pigtail 5 Fr catheter was advanced over the wire and used for Procedure. 10:23:27 LV angiography performed. 10::29 LV gram done using CAMPOS 10::41 EF : 55 % 10::45 Injector settings: Ml/sec: 7, Volume: 15, 10::46 Catheter removed. 10::52 A MULTIPACK JL 4.0 5Fr catheter was advanced over the wire and used for Procedure. 10::55 LCA angiography performed. 10::35 Catheter removed. 10:26:03 A MULTIPACK 3DRC 5Fr catheter was advanced over the wire and used for Procedure. 10::48 RCA angiography performed. 10::54 Catheter removed. 10::59 A DIAGNOSTIC AR 2 MOD 5 Fr catheter ([id number]) was advanced over the wire and used for Procedure. 10::32 Versed 0.5 mg I.V. was administered by Jessica Roman RN; for sedation; 10::38 Fentanyl 25 mcg I.V. was administered by Jessica Roman RN; for sedation; 10::39 SVG to Circ angiography performed. 10:29:16 SVG to RCA angiography performed. 10:: Catheter removed. 10::28 EXOSEAL 5Fr (EX500) opened to sterile field. 10::36 Sheath removed intact; hemostasis achieved with Exoseal to the Right Femoral artery. 10::38 Procedure ended.(Physican Out) 10::49 Fluoroscopy time 02.30 minutes. 10::54 Fluoroscopy dose: 176 mGy 10::54 Flurop Dose total: 176 10::58 Contrast amount:Isovue 300 71ml. 10:30:00 Sharps counted by scrub and verified by R.N. 10:30:01 Insertion/operative site no bleeding no hematoma. 10:30:05 Post-op/insertion site Right Femoral artery dressed using a 4 x 4 and Tegaderm. 10:30:07 Post Procedure Pulses reassessed and unchanged 10:30:09 Post-procedure physical assessment completed. ASA score P 2 - A patient with mild systemic disease as per Grant Villalta MD. 10:30:11 Post procedure rhythm: unchanged. 10:30:14 Estimated blood loss: 10 ml 10:30:15 Post procedure instruction explained to patient.Patient verbalizes understanding. 10:30:15 Patient needs reinforcement of post procedure teaching. 10:30:24 Procedure type changed to Cath procedure, Diagnostic procedure, LHC, LHC w/Coronaries w/Grafts 10:30:25 Procedure and supply charges have been captured, reviewed, submitted and are correct. 10:30:27 Procedure Complication : No complications 10:35:28 Vital chart was stopped 10:35:28 See physician's report for complete and final results. 10:35:30 Report given to Pre/Post Procedure Room. 10:35:33 Patient transfered to Pre/Post Procedure Room with Stretcher. 10:35:35 Procedure ended. 10:35:35 Full Disclosure recording stopped 10:35:47 End room use (Document Last) Device Usage Item Name Manufacture Quantity Catalog Hospital Part Current Minimal Lot# / Number Charge Number Stock Stock Serial# Code Tegaderm 4 x 3M 1 1626W 000557 128253 493141 5 4 (1626W) PERCUTANEOUS Cook Medical 1 [id number] 186627 548004 5 ENTRY 19GA needle ACIST Hand Acist 1 90552 333892 200129 385522 5 Control Medical (96146) Systems Inc ACIST Acist 1 95944 684322 975377 073203 5 Manifold Medical (61914) Systems Inc ACIST Acist 1 00150 476675 304556 732342 20 Syringe Medical (40013) Systems Inc Bag Decanter Microtek 1 2002S 262050 00137 632812 5 (2001S) Medical Inc. Medline Cath Cardinal 1 [id number] 703124 53630 491739 5 Pack Health ([id number]) SHEATH 5FR Terumo 1 DRK382 626039 492363 594022 40 [place] (HXY227) DIAGNOSTIC St Erik 1 369589 437903 421428 129720 30 WIRE .035 260cm J wire (001641) DIAGNOSTIC Cardinal 1 XL1625 837877 74458 409230 30 Multipack Health 5Fr catheter set (VI0650) MULTIPACK Cardinal 1 554497 5 Pigtail 5 Fr Health catheter MULTIPACK JL Cardinal 1 623475 5 4.0 5Fr Health catheter MULTIPACK Cardinal 1 214423 5 3DRC 5Fr Health catheter DIAGNOSTIC Cardinal 1 [id number] 096092 163877 789125 20 AR 2 MOD 5 Health Fr catheter (376658Q) EXOSEAL 5Fr Cardinal 1 EX500 646470 441849 647215 10 (EX500) Health Signature Audit [place] Stage Time Signature Unsigned Intra-Procedure 08/22/2017 Arsen Segundo 10:38:49 AM RT(R) Signatures Monitor : Arsen Segundo RT Signature : Date : Time : [id number] [place] [address]
--- NOTE | ~2017-08-22 | OP ---
PATIENT NAME: BAM DUNN MEDICAL RECORD: [id number] :60 LOCATION:[facility] ADMISSION DATE: SURGEON: ARPITA ROMAN MD DATE OF OPERATION: 08/22/2017 PROCEDURES: 1. Left heart catheterization. 2. Selective coronary angiography. 3. Left ventriculogram. 4. Vein graft angiography. INDICATION: Angina and coronary artery disease. PROCEDURE IN DETAIL: After informed consent was obtained and after detailed explanation of risks, benefits as well as alternative therapies, the patient elected to proceed with angiogram and heart catheterization. The right femoral area was prepped and draped in normal sterile fashion. The right femoral artery was cannulated via modified Seldinger technique with placement of 5-Bulgarian sheath. All catheters were exchanged through this sheath. FINDINGS: The left ventriculogram was performed in standard 30-degree CAMPOS view, reveals good cardiac wall motion, ejection fraction 55% to 60%. SELECTIVE CORONARY ANGIOGRAPHY: 1. Left main showed no significant angiographic disease. 2. Left anterior descending is widely patent. The previously placed stents are widely patent. 3. The ramus intermedius has previously placed stent. This is widely patent. 4. The left circumflex has previously placed stent. This is widely patent. There is no disease elsewise throughout the LAD or circumflex. The LAD diagonal is totally occluded. 5. Vein graft to the LAD diagonal is widely patent. 6. The right coronary artery is totally occluded. 7. Vein graft to the right coronary artery is widely patent. The distal right coronary artery is small but widely patent. OVERALL IMPRESSION: Wide patency of both grafts and all the previously placed stents with no new disease. Continue medical management of the coronary artery disease and cardiac risk factors. TRANSINT:[id number] Voice Confirmation ID: [id number] DOCUMENT ID: [id number] ARPITA ROMAN MD at 1056 CC: [id number] DICTATION DATE: 08/22/17 1037 ECHO VASC TECH: 08/22/17 1209 DEP CLI 08/22/[address] [address]
[~2017-08-22 08:25] MED LIST changes: -BREO ELLIPTA 21 EACH; -IPRAT-ALBUT 0.5-3 ML UPD; -PROVENTIL/2.5 MG/3 M INH
[2017-08-22] MEDS ORDERED: BREO ELLIPTA 21 EACH (08:41)
[2017-08-22] MEDS ORDERED: PROVENTIL/2.5 MG/3 M INH (08:41)
[2017-08-22] MEDS ORDERED: IPRAT-ALBUT 0.5-3 ML UPD (08:42)
[2017-08-22 08:47] VITALS: BP 139/93; Ht 180.3 cm; Wt 92.3 kg
[2017-08-22 08:57] LABS: BASOPHILS 0.2 % (0-2); EOSINOPHILS 2.7 % (0-7); HEMATOCRIT 45.4 % (42.0-54.0); HEMOGLOBIN 16.1 g/dL (13.5-17.5); IMMATURE GRANULOCYTES 0.2 % (0-5); LYMPHOCYTES 29.5 % (15-50); MCH 30.3 pg (26.0-34.0); MCHC 35.5 g/dL (31.0-37.0); MCV 85.3 fL (80.0-100.0); MEAN PLATELET VOLUME 10.1 fL (7.4-10.4); MONOCYTES 6.6 % (2-11); NEUTROPHILS 60.8 % (40-80); PLATELET COUNT 220 10x3/uL (130-400); RBC 5.32 10x6/uL (4.20-6.10); RDW 13.2 % (11.5-14.5); WBC 8.2 10x3/uL (4.8-10.8)
[2017-08-22 09:05] LABS: ANION GAP 15.7 mmol/L (8-16); CALCIUM 8.7 mg/dL (8.5-10.1); CARBON DIOXIDE 22.2 mmol/L (21.0-32.0); CREATININE - SERUM 1.4 mg/dL (0.6-1.3); POTASSIUM - SERUM 3.9 mmol/L (3.5-5.1)
== END 2017-08-22 12:44 | disposition home or self-care (01) ==
LOC: D.CATH 08:25
PROVIDERS: Internal Medicine Interventional Cardiology
DX: I25.110 Atherosclerotic heart disease of native coronary artery with unstable angina pectoris (principal); I10 Essential (primary) hypertension; Z87.891 Personal history of nicotine dependence; Z01.812 Encounter for preprocedural laboratory examination

== ENCOUNTER → 2018-02-28 07:37 | Outpatient (CLI) | payer MEDICAID ==
[2017-08-22 08:47] VITALS: BMI 28.3
[~2018-02-28 07:37] MED LIST changes: +BREO ELLIPTA 21 EACH; +IPRAT-ALBUT 0.5-3 ML UPD; +PROVENTIL/2.5 MG/3 M INH
== END | disposition home or self-care (01) ==
LOC: D.US 07:37
DX: R10.11 Right upper quadrant pain (principal)

== ENCOUNTER → 2018-03-29 09:27 | Outpatient (CLI) | payer MEDICAID ==
[2017-08-22 08:47] VITALS: BMI 28.3
== END | disposition home or self-care (01) ==
LOC: D.NM 09:27
DX: R10.11 Right upper quadrant pain (principal)

== ENCOUNTER 2018-05-18 05:45 | Day surgery (SDC) | payer MEDICAID ==
[2018-05-17 10:09] LABS: HEMATOCRIT 44.3 % (42.0-54.0); HEMOGLOBIN 15.7 g/dL (13.5-17.5); MCH 30.5 pg (26.0-34.0); MCHC 35.4 g/dL (31.0-37.0); MCV 86.2 fL (80.0-100.0); MEAN PLATELET VOLUME 10.2 fL (7.4-10.4); RBC 5.14 10x6/uL (4.20-6.10); RDW 13.6 % (11.5-14.5); WBC 10.3 10x3/uL (4.8-10.8)
[2018-05-17 10:22] LABS: ANION GAP 15.5 mmol/L (8-16); CALCIUM 8.9 mg/dL (8.5-10.1); CARBON DIOXIDE 23.6 mmol/L (21.0-32.0); CREATININE - SERUM 1.3 mg/dL (0.6-1.3); POTASSIUM - SERUM 4.1 mmol/L (3.5-5.1)
[~2018-05-18] VITALS: Ht 180.3 cm; Wt 99.3 kg
[~2018-05-18 05:45] MED LIST changes: +DULERA 200 MCG8.8 GM INH; +RANEXA500 MG PO
[2018-05-18 06:32] VITALS: BP 111/82; Ht 180.3 cm; Wt 99.3 kg
--- NOTE | 2018-05-18 18:30 | NUR ---
REC'D FROM RR. NO FAMILY CURRENTLY AT BEDSIDE. DRESSINGS TO ABD CDI. FL TRAY AND ICE WATER BROUGHT TO PT.
--- NOTE | 2018-05-18 19:00 | NUR ---
FRIEND AT BEDSIDE. EATING HIS FL TRAY. NO CHANGES NOTED.
--- NOTE | 2018-05-18 19:30 | NUR ---
TOLERATED DIET. FEELS HE NEEDS TO VOID. AMBULATED TO THE BATHROOM. VOIDED WITHOUT DIFFICULTY.
--- NOTE | 2018-05-18 19:45 | NUR ---
IV DC'D WITH CATHETER INTACT.
--- NOTE | 2018-05-18 19:55 | NUR ---
WRITTEN AND VERBAL DC INST. GIVEN TO PT ALONG WITH RX. VERBALIZED UNDERSTANDING.
--- NOTE | 2018-05-18 20:05 | NUR ---
DC'D HOME WITH FRIEND VIA PRIVATE VEHICLE. TAKEN TO VEHICLE VIA WC. STABLE AT TIME OF DC.
--- NOTE | 2018-05-19 10:51 | OP ---
PATIENT NAME: BAM DUNN MEDICAL RECORD: [id number] :60 LOCATION:[facility] ADMISSION DATE: SURGEON: GUILLERMINA MUSTAFA MD DATE OF OPERATION: 05/18/2018 PREOPERATIVE DIAGNOSIS: Biliary dyskinesia. POSTOPERATIVE DIAGNOSES: Biliary dyskinesia with fatty infiltration of the liver. PROCEDURES: 1. Laparoscopic cholecystectomy. 2. Intraoperative cholangiography without immediate surgeon interpretation. 3. 14-gauge core needle liver biopsy. SURGEON: Guillermina Mustafa MD REC THERAPIST: Isra Dewitt MD BLOOD LOSS: Minimal. ANESTHESIA: General. COMPLICATIONS: None. The risks, possible complications, and alternatives to the procedure were explained to the patient. He elects to proceed. The discussion specifically included, but was not limited to, bleeding requiring emergency reoperation, infection, bile duct injury as well as injury to the intestines. OPERATIVE COURSE: The patient was conveyed to the operating room electively on 05/18/2018. General anesthesia was induced by the anesthesia staff. The abdomen was sterilely prepped and draped. An incision was accomplished within the umbilicus. There was a small umbilical hernia with some incarcerated preperitoneal fat which was excised. I inserted a 12-mm trocar through the umbilical hernia defect. CO2 insufflation was begun. Once a sufficient pneumoperitoneum had been achieved, a 5-mm trocar was inserted through an incision in the left upper quadrant. Another 5-mm trocar was inserted through an incision in the epigastrium. Another 5-mm trocar was inserted far laterally in the right upper quadrant. During insertion of the Veress needle and all trocars, there appeared to have been no injury to the bowels, any intraperitoneal or retroperitoneal structures. An abdominal survey was undertaken. Some fatty infiltration of the liver was noted. That was the indication for the liver biopsy. Under laparoscopic guidance, I percutaneously accessed the right upper quadrant utilizing a 14-gauge core needle liver biopsy device. Cores were obtained over the convexity of the liver. The biopsy sites were made hemostatic with electrocautery. I then advanced a cholangiogram trocar. I punctured the fundus of the gallbladder. I aspirated bile. I then injected dye. Under real time fluoroscopy, static fluoroscopic images were obtained. These were cholangiographic images that are sent to the radiologist for interpretation. I then aspirated bile and removed the cholangiogram trocar. OPERATIVE REPORT [id number] BAM DUNN The gallbladder was grasped and retracted cephalad. The infundibulum was grasped and retracted laterally. Blunt dissection was begun in the triangle of Calot. Two cystic arteries and one cystic duct were identified. These were clipped multiply and divided between clips. The gallbladder was then excised from the bed in the liver. It was placed within a bag retrieval device and was withdrawn through the umbilical fascia defect. The 12-mm trocars were placed and the abdomen reinsufflated. I irrigated and aspirated in the right upper quadrant. There was no bleeding even at a low pressure of 8. All trocars were removed and the abdomen desufflated. The umbilical fascial defect was closed with a horizontal mattress 0 Vicryl suture. The skin at the umbilicus was closed with interrupted 4-0 Vicryl Rapide sutures. The other skin incisions were closed with interrupted intracuticular 3-0 Vicryls. Benzoin and Steri-Strips were applied. The patient was then extubated and conveyed to post-anesthesia care unit where he was in stable condition. I will plan for him to be dismissed home with [place] as well as Hanh. I will see him in the office in 3 weeks. TRANSINT:[id number] Voice Confirmation ID: [id number] DOCUMENT ID: [id number] GUILLERMINA MUSTAFA MD at 1051 CC: POLINA TEJEDA MD [id number] DICTATION DATE: 05/18/181812 AIR BRAKE TESTER: 05/19/18 0030 [facility] 05/18/[address] [place] [address]
== END 2018-05-18 20:05 | disposition home or self-care (01) ==
LOC: D.OPS 05:45 → D.PAN 08:00 → D.OPS 09:00
PROVIDERS: Anesthesiology
DX: K82.8 Other specified diseases of gallbladder (principal); K76.0 Fatty (change of) liver, not elsewhere classified; Z01.812 Encounter for preprocedural laboratory examination

== ENCOUNTER 2018-06-22 07:53 | Outpatient (CLI) | payer MEDICAID ==
[~2018-06-22] VITALS: Ht 180.3 cm; Wt 98.6 kg
--- NOTE | ~2018-06-22 | HEMODYNAMI ---
PATIENT:BAM DUNN MEDICAL RECORD: [id number] : 60 LOCATION:CHEMA ADMISSION DATE: 06/22/18 Generatedon:06/22/201810:03 Patient name: BAM DUNN Patient #: [id number] SSN: [id number] : 1960 Date of study: 06/22/2018 Page: Of Hemodynamic Procedure Report Patient Data Patient Demographics Procedure consent was obtained First Name: BAM Gender: Male Last Name: SHAUN : 1960 Middle Initial: D Age: 57 year(s) Patient #: [id number] Race: SSN: [id number] Additional ID: [id number] Contact details Address: [address] [address] State: [place] City: [place] Zip code: [address] Past Medical History Allergies: No known allergies Admission Admission Data Admission Date: 06/22/2018 Admission Time: 7:53 Lab Results Lab Result Date: 06/22/2018 Lab Result Time: 0:00 Biochemistry Name Units Result Min Max BUN mg/dl 23 --(----)-* 7 18 Creatinine mg/dl 1.4 --(----)*- 0.6 1.3 CBC Name Units Result Min Max Hemoglobin g/dl 16.1 --(--*-)-- 13.5 17.5 Procedure Procedure Types Cath Procedure Diagnostic Procedure LHC LHC w/Coronaries w/Grafts FFR/IVUS Intra-Coronary IVUS Initial Sedation Charges Moderate Sedation up to 15 minutes PCI Procedure Coronary Stent Coronary Stent Initial Procedure Description Procedure Date Procedure Date: 06/22/2018 Procedure Start Time: 9:38 Procedure End Time: 9:56 Procedure Staff Name Function Grant Villalta MD Performing Physician Grace Marin RT Scrub Ranjana Field RT Monitor Sebastien Tomlin RN Nurse Jessica Roman RN Environmental Compliance Manager Procedure Data Cath Procedure Fluoroscopy Diagnostic fluoroscopy Total fluoroscopy Time: 4.2 time: 4.2 min min Diagnostic fluoroscopy Total fluoroscopy dose: 960 dose: 960 mGy mGy Contrast Material Contrast Material Type Amount (ml) Isovue 300 960 Entry Location Entry Primary Successful Side Size Upsize Upsize Entry Closure Succes sful Closure Location (Fr) 1 (Fr) 2 (Fr) Remarks Device Remarks Femoral Right 5 Fr 6 Fr Exoseal artery Short Estimated blood loss: 5 ml Diagnostic catheters Device Type Used For End Catheter Placement MULTIPACK Pigtail 5 Fr Multi-vessel catheter Angiography MULTIPACK JL 4.0 5Fr Left Coronary catheter Angiography DIAGNOSTIC AR2 MOD 5 Fr Multi-vessel catheter ([id number]) Angiography Procedure Complications No complications Procedure Medications Medication Administration Route Dosage Oxygen etCO2 Nasal cannula 2 l/min Lidocaine 2% added to field 20 Heparin Flush Bag added to field 2 bags (1000units/500ml NS) 0.9% NaCl I.V. 100 ml/hr Versed I.V. 2 mg Fentanyl I.V. 100 mcg Versed I.V. 2 mg Fentanyl I.V. 100 mcg Heparin Bolus 4000 units Hemodynamics Rest HGB: 16.1 (g/dl) Heart Rate: 71 (bpm) Pressure Samples Time Site Value (mmHg) Purpose Heart Use Rate(bpm) 9:40 LV 56/15,19 Snapshot 73 Snapshots Pre Cath Intra NCS Post Cath Vital Signs Time Heart Resp SPO2 etCO2 NIBP (mmHg) Rhythm Pain Sedation Rate (ipm) (%) (mmHg) Status Level (bpm) 9:12:37 72 14 97 29.6 160/106(145) NSR 0 (11) 10(A) , No pain 9:16:55 71 7 97 28.8 137/105(124) NSR 0 (11) 10(A) , No pain 9:21:07 72 6 97 35.6 129/99(117) NSR 0 (11) 10(A) , No pain 9:25:15 72 14 97 28.1 111/96(102) NSR 0 (11) 10(A) , No pain 9:29:17 73 10 95 16.7 128/94(106) NSR 0 (11) 10(A) , No pain 9:33:26 72 9 89 20.5 128/87(108) NSR 0 (11) 10(A) , No pain 9:37:34 73 9 91 18.2 130/91(110) NSR 0 (11) 10(A) , No pain 9:41:44 73 9 94 27.3 134/90(119) NSR 0 (11) 10(A) , No pain 9:45:56 74 9 95 28.1 130/88(121) NSR 0 (11) 10(A) , No pain 9:50:06 73 10 95 27.3 122/87(102) NSR 0 (11) 10(A) , No pain 9:54:12 84 10 97 26.5 126/103(118) NSR 0 (11) 10(A) , No pain Medications Time Medication Route Dose Verified Delivered Reason Notes Effectiveness by by 9:16:11 Oxygen etCO2 2 Grant Buffie used for Nasal l/min Pawan Roman RN procedure cannula 9:16:55 Lidocaine 2% added 20ml Grant Grant for local to vial Pawan Villalta MD anesthetic field 9:17:02 Heparin Flush added 2 Grant Grant used for Bag to bags Pawan Villalta MD procedure (1000units/500ml field NS) 9:17:17 0.9% NaCl I.V. 100 Grant Beeie Per physician ml/hr Pawan Roman RN 9:26:07 Versed I.V. 2 mg Grantlalit Beeie for sedation Pawan Roman RN 9:26:16 Fentanyl I.V. 100 Grant Buffie for sedation mcg Pawan Roman RN 9:41:13 Versed I.V. 2 mg Grantlalit Beeie for sedation Pawan Roman RN 9:41:21 Fentanyl I.V. 100 Grant Lopez for sedation mcg Pawan Roman RN 9:49:51 Heparin Bolus 4000 Grant Buffie for units Pawan Roman RN anticoagulation Procedure Log Time Note 8:06:22 Informed consent obtained and on chart 8:55:41 Diagnostic Cath Status : Elective 8:56:18 Sebastien Tomlin RN sent for patient. Start room use. 8:56:19 Time tracking: Regular hours (M-F 7:00 - 5:00) 8:56:23 Plan of Care:Hemodynamics will remain stable., Cardiac rhythm will remain stable., Comfort level will be maintained., Respiratory function will remain adequate., Patient/ family verbilizes understanding of procedure., Procedure tolerated without complication., Recovers from procedure without complications.. 9:06:36 Patient received from Pre/Post Procedure Room to CCL 1 Alert and oriented. Tansferred to table in Supine position. 9:06:38 Warm blankets applied, and khadar hugger turned on for patient comfort. 9:06:39 Correct patient and procedure confirmed by team. 9:07:02 ECG and BP/O2 sat monitors applied to patient. 9:07:47 H&P Date Dictated: 06/14/2018 Within 30 days and on chart., H&P Addendum completed by physician on day of procedure. (MUST COMPLETE FOR ALL OUTPATIENTS). 9:08:18 Family in patients room. 9:08:20 Patient NPO since Midnight. 9:08:21 Patient NPO since Midnight. 9:08:33 Patient allergic to No known allergies 9:08:36 Is patient on blood thinner?Yes 9:08:39 ACC The patient was administered the following blood thiners within the last 24 hours: ACCPlavix 9:08:41 Patient diabetic? No. 9:08:46 Previous problem with sedation/anesthesia? No ? 9:08:47 Snore? Yes 9:08:52 Sleep apnea? No 9:08:53 Deviated septum? No 9:08:54 Opens mouth fully? Yes 9:08:55 Sticks out tongue? Yes 9:08:59 Airway obstruction? Yes COPD 9:09:02 Dentures? Yes OUT 9:09:12 Pre-procedure instructions explained to patient. 9:09:13 Pre-op teaching completed and patient verbalized understanding. 9:09:57 Pre procedure: right dorsailis pedis pulse 2+ Normal; easily identifiable; not easily obliterated 9:10:00 Patient pain scale 0/10 ?. 9:10:03 IV patent on arrival in right hand with 0.9% NaCl at KVO. 9:11:25 Vital chart was started 9:11:26 Baseline sample Acquired. 9:11:32 Rhythm: sinus rhythm 9:11:52 Lab Result : BUN 23 mg/dl 9:11:52 Lab Result : Creatinine 1.4 mg/dl 9:11:52 Lab Result : Hemoglobin 16.1 g/dl 9:11:56 Lab results completed and on chart. 9:12:01 Right groin area was prepped with chlora-prep and aped in sterile fashion 9:12:02 Alarms reviewed by R. N. 9:12:02 Sharps counted by scrub and verified by R.N. 9:12:16 Use device set Femoral Dx 9:12:19 ACIST Syringe (95037) opened to sterile field. 9:12:19 Bag Decanter (2002S) opened to sterile field. 9:12:21 ACIST Hand Control (93792) opened to sterile field. 9:12:22 ACIST Manifold (37278) opened to sterile field. 9:12:23 Tegaderm 4 x 4 (1626W) opened to sterile field. 9:12:26 Medline Cath Pack ([id number]) opened to sterile field. 9:12:27 DIAGNOSTIC WIRE .035 260cm J wire (941242) opened to sterile field. 9:12:28 DIAGNOSTIC Multipack 5Fr catheter set (WU0121) opened to sterile field. 9:12:28 SHEATH 5FR [place] ([id number]) opened to sterile field. 9:16:11 Oxygen 2 l/min etCO2 Nasal cannula was administered by Jessica Roman RN; used for procedure; 9:16:55 Lidocaine 2% 20ml vial added to field was administered by Grant Villalta MD; for local anesthetic; 9:17:02 Heparin Flush Bag (1000units/500ml NS) 2 bags added to field was administered by Grant Villalta MD; used for procedure; 9:17:17 0.9% NaCl 100 ml/hr I.V. was administered by Jessica Roman RN; Per physician; 9:20:29 Zero performed for pressure channel P1 9:21:06 Zero performed for pressure channel P1 9:21:15 Zero performed for pressure channel P1 9:25:44 Physician arrived 9:25:45 --------ALL STOP TIME OUT------ 9:25:45 Final Timeout: patient, procedure, and site verified with staff and physician. All members of the team are in agreement. 9:25:47 Right groin site verified by team. 9:25:50 Physical assessment completed. ASA score P 2 - A patient with mild systemic disease as per Grant Villalta MD. 9:25:54 Sedation plan: IV Moderate Sedation Medication:Versed, Fentanyl 9:26:07 Versed 2 mg I.V. was administered by Jessica Roman RN; for sedation; 9:26:16 Fentanyl 100 mcg I.V. was administered by Jessica Roman RN; for sedation; ::33 Procedure started. :: Full Disclosure recording started 9:37:13 Zero performed for pressure channel P1 9:38:12 Local anesthetic to right femoral artery with Lidocaine 2% by Grant Villalta MD.INITIAL ACCESS ONLY 9:38:27 A 5 Fr sheath was inserted into the Right Femoral artery 9:39:50 A MULTIPACK Pigtail 5 Fr catheter was advanced over the wire and used for Multi-vessel Angiography. 9:40:39 LV hemodynamics recorded. 9:40:40 LV gram done using CAMPOS 9:40:43 Injector settings: Ml/sec: 5, Volume: 15, 9:40:48 EF : 60 % 9:40:54 Catheter removed. 9:40:57 A MULTIPACK JL 4.0 5Fr catheter was advanced over the wire and used for Left Coronary Angiography. 9:41:13 Versed 2 mg I.V. was administered by Jessica Roman RN; for sedation; 9:41:21 Fentanyl 100 mcg I.V. was administered by Jessica Roman RN; for sedation; 9:41:39 LCA angiography performed. 9:41:42 Injector settings: Ml/sec: 3, Volume: 6, 9:42:40 Catheter removed. 9:43:09 A DIAGNOSTIC AR2 MOD 5 Fr catheter ([id number]) was advanced over the wire and used for Multi-vessel Angiography. 9:43:42 SHEATH 6FR [place] (CAZ514) opened to sterile field. 9:43:43 INFLATOR Merit BasixCompak (OO4898) opened to sterile field. 9:43:44 CHOICE PT Extra Support 182cm wire ([id number]) opened to sterile field. 9:43:55 SVG to RCA angiography performed. 9:44:42 SVG to Circ angiography performed. 9:44:45 Catheter removed. 9:44:48 Proceeding to intervention. 9:45:13 GUIDE 6FR XBLAD 3.5 catheter ([id number]) opened to sterile field. 9:45:24 Sheath upsized to a 6 Fr Short. 9:45:41 [place] IVUS Catheter (54682R) opened to sterile field. 9:45:56 6 Fr xblad 3.5 guide catheter was inserted over the wire 9:46:01 choice pt wire advanced. 9:46:02 Wire advanced across lesion. 9:46:05 IVUS catheter advanced over wire. 9:49:25 IVUS pass to LAD lesion performed. 9:49:26 IVUS catheter removed over wire. 9:49:51 Heparin Bolus 4000 units was administered by Jessica Roman RN; for anticoagulation; 9:50:52 Place stent Inflation Number: 1 A ERA RX 3.0 x 22 stent ([id number]) was prepped and advanced across the Mid LAD. The stent was deployed at 19 DEION for 0:10 (min:sec). 9:51:16 Inflation number: 2 The stent balloon was then re-inflated across the Mid LAD to 19 DEION for 0:10 (min:sec). 9:51:43 Inflation number: 1 The stent balloon was then re-inflated across the Prox LAD to 19 DEION for 0:10 (min:sec). 9:51:52 Inflation number: 3 The stent balloon was then re-inflated across the Mid LAD to 11 DIEON for 0:10 (min:sec). 9:52:23 Stent catheter was removed intact over wire. 9:52:24 Wire removed. 9:52:24 Guide catheter removed. 9:52:31 EXOSEAL 6Fr (EX600) opened to sterile field. 9:52:48 Sheath removed intact; hemostasis achieved with Exoseal to the Right Femoral artery. 9:52:49 Procedure ended.(Physican Out) 9:53:52 Fluoroscopy time 04.20 minutes. 9:53:56 Flurop Dose total: 960 9:53:56 Fluoroscopy dose: 960 mGy 9:54:23 Contrast amount:Isovue 300 960ml. 9:54:24 Sharps counted by scrub and verified by R.N. 9:54:28 Insertion/operative site no bleeding no hematoma. 9:54:31 Post-op/insertion site Right Femoral artery dressed using a 4 x 4 and Tegaderm. 9:54:35 Post right femoral artery:stable 9:54:41 Post Procedure Pulses reassessed and unchanged 9:54:46 Post procedure rhythm: unchanged. 9:54:55 Estimated blood loss: 5 ml 9:54:57 Post procedure instruction explained to patient.Patient verbalizes understanding. 9:54:57 Patient needs reinforcement of post procedure teaching. 9:55:32 Procedure type changed to Cath procedure, Diagnostic procedure, LHC, LHC w/Coronaries w/Grafts, FFR/IVUS, Intra-Coronary IVUS Initial, Sedation Charges, Moderate Sedation up to 15 minutes, PCI procedure, Coronary Stent, Coronary Stent Initial 9:55:48 Procedure and supply charges have been captured, reviewed, submitted and are correct. 9:55:52 Procedure Complication : No complications 9:55:54 Vital chart was stopped 9:55:55 See physician's report for complete and final results. 9:56:09 Report given to Pre/Post Procedure Room. 9:56:13 Patient transfered to Pre/Post Procedure Room with Stretcher. 9:56:16 Procedure ended. 9:56:16 Full Disclosure recording stopped 9:56:27 ACC-PCI Only Patient was given prescriptions, or instructed by Grant Villalta MD to start/continue the following medications upon discharge: Plavix 9:56:29 End room use (Document Last) Intervention Summary Intervention Notes Time ActionType Lesion and Equipment Used Action# Pressure Duration Attributes 9:50:52 Place stent Mid LAD ERA RX 3.0 x 1 19 00:10 22 stent ([id number]) 9:51:16 Reinflate Mid LAD ERA RX 3.0 x 2 19 00:10 stent 22 stent balloon ([id number]) 9:51:43 Reinflate Prox LAD ERA RX 3.0 x 1 19 00:10 stent 22 stent balloon ([id number]) 9:51:52 Reinflate Mid LAD ERA RX 3.0 x 3 11 00:10 stent 22 stent balloon ([id number]) Device Usage Item Name Manufacture Quantity Catalog Number [facility] Lot# / Charge Number Stock Stock Serial# Code ACIST Syringe Acist 1 90540 [id number] 20 (24187) Medical Systems Inc Bag Decanter Microtek 1 499591 5 () Medical Inc. ACIST Hand Acist 1 93801 328242 5 Control Medical (81257) Systems Inc ACIST Manifold Acist 1 42725 191225 5 (18527) Medical Systems Inc Tegaderm 4 x 4 3M 1 1626W 719670 5 (1626W) Medline Cath Medline 1 [id number] 891441 5 Pack ([id number]) DIAGNOSTIC St Erik 1 199403 147292 30 WIRE .035 260cm J wire (888864) DIAGNOSTIC Cardinal 1 LT4203 810461 30 Multipack 5Fr Health catheter set (JF2846) SHEATH 5FR Terumo 1 DKN755 123636 5 [place] (UUW598) MULTIPACK Cardinal 1 278881 5 Pigtail 5 Fr Health catheter MULTIPACK JL Cardinal 1 027632 5 4.0 5Fr Health catheter DIAGNOSTIC AR2 Cardinal 1 [id number] 112708 20 MOD 5 Fr Health catheter (775141Z) SHEATH 6FR Terumo 1 AQQ993 456946 40 [place] (IHT924) INFLATOR Merit Merit 1 SS7654 378662 15 [place] Used Gym EquipmentksSportsManias Medical (KM7042) CHOICE PT Waelder 1 [id number] 224441 5 Extra Support Scientific 182cm wire ([id number]) GUIDE 6FR Cardinal 1 [id number] 376505 10 XBLAD 3.5 Health catheter (81397199) [place] 1 04134H 155165 8 [place] Eag[place] IVUS Catheter (70761Y) ERA RX 3.0 x Medtronic 1 [id number] 130663 5 [id number] 22 stent ([id number]) EXOSEAL 6Fr Cardinal 1 EX600 424205 10 (EX600) Health Signature Audit [place] Stage Time Signature Unsigned Intra-Procedure 06/22/2018 Ranjana Field 10:03:39 AM RT(R) Signatures Monitor : Ranjana Field RT Signature : Date : Time : [facility] [address] [place] [address]
[2018-06-22 07:55] VITALS: BP 142/97; Ht 180.3 cm; Wt 98.6 kg
[2018-06-22 08:09] LABS: BASOPHILS 0.4 % (0-2); EOSINOPHILS 2.2 % (0-7); HEMATOCRIT 46.2 % (42.0-54.0); HEMOGLOBIN 16.1 g/dL (13.5-17.5); IMMATURE GRANULOCYTES 0.2 % (0-5); MCH 30.7 pg (26.0-34.0); MCHC 34.8 g/dL (31.0-37.0); MEAN PLATELET VOLUME 10.5 fL (7.4-10.4); MONOCYTES 5.6 % (2-11); NEUTROPHILS 49.6 % (40-80); PLATELET COUNT 216 10x3/uL (130-400); RBC 5.25 10x6/uL (4.20-6.10); RDW 13.6 % (11.5-14.5); WBC 8.1 10x3/uL (4.8-10.8)
[2018-06-22 08:39] LABS: ANION GAP 13.2 mmol/L (8-16); CALCIUM 8.7 mg/dL (8.5-10.1); CARBON DIOXIDE 23.4 mmol/L (21.0-32.0); CREATININE - SERUM 1.4 mg/dL (0.6-1.3); POTASSIUM - SERUM 3.6 mmol/L (3.5-5.1)
--- NOTE | 2018-06-22 10:28 | NUR ---
PT HAS RECEIVED 0.2MG CLONIDINE PO PER ORDERS, HOB IS FLAT, DRESSING CDI TO RIGHT GROIN, NSR AND DENIES ANY C/O CHEST PAIN. PEDAL PULSES PALPABLE. FAMILY AT BEDSIDE, CALL LIGHT IN REACH, PO FLUIDS AT BEDSIDE.
--- NOTE | 2018-06-22 10:38 | NUR ---
DRESSING TO RIGHT GROIN IS CDI, AREA IS SOFT AND NONTENDER. PEDAL PULSES PALPABLE. HOB IS FLAT, NSR RATE 75, BP IS 179/110. PT DENIES ANY C/O. JOHAN PO FLUIDS WITH NO NAUSEA.
--- NOTE | 2018-06-22 11:08 | NUR ---
PT JOHAN PO FLUIDS WITH NO C/O,. DRESSING CDI, NSR AND DENIES ANY C/O CHEST PAIN, PEDAL PULSES PALPABLE. HOB IS FLAT, FAMILY AT BEDSIDE.
--- NOTE | 2018-06-22 11:25 | NUR ---
DR ROMAN HAS ROUNDED ON PT. PT IS ALERT AND DENIES ANY C/O. DRESSING TO RIGHT GROIN IS CDI, AREA IS SOFT AND NONTENDER. PEDAL PULSES PALPABLE. HOB TILTED AND SANDWICH SERVED. CALL LIGHT IN REACH, NO FAMILY AT BEDSIDE.
--- NOTE | 2018-06-22 12:11 | NUR ---
PT JOHAN SANDWICH WITH NO C/O NAUSEA. DRESSING TO RIGHT GROIN REMAINS CDI. NSR RATE 72, DENIES ANY C/O CHEST PAIN. BP IS 125/83. HOB IS FLAT, CALL LIGHT IN REACH.
--- NOTE | 2018-06-22 12:59 | NUR ---
HOB ELEVATED 30 DEGREES, DRESSING TO RIGHT GROIN IS CDI, AREA IS SOFT AND NONTENDER. PEDAL PULSES PALPABLE. VSS, RESP WITH EASE, PT IS ALERT AND WATCHING TV WITH NO C/O. FAMILY AT BEDSIDE.
--- NOTE | 2018-06-22 13:59 | NUR ---
1330 HOB ELEVATED FULLY. DRESSING TO RIGHT GROIN IS CDI, AREA IS SOFT AND NONTENDER. PEDAL PULSES PALPABLE. PT IS ALERT AND DENIES ANY C/O. FAMILY AT BEDSIDE. 1350 DRESSING REMAINS CDI TO RIGHT GROIN, AREA IS SOFT AND NONTENDER. IV DC'D WTIH CATH INTACT AND DC INSTRUCTIONS REVIEWED WITH PT AND FAMILY WHO VERBALIZE UNDERSTANDING. PT DRESSING FOR DC WITH ASSIST.
--- NOTE | 2018-06-22 14:01 | NUR ---
ASSISTED PT TO BATHROOM VIA WC, PT VOIDED QS. DENIES ANY C/O.
--- NOTE | 2018-06-22 14:10 | NUR ---
PT ALERT AND DENIES ANY C/O. PT ESCORTED TO PRIVATE AUTO VIA WC WITH FAMILY DRIVING HIM HOME.
--- NOTE | 2018-06-29 12:11 | OP ---
PATIENT NAME: BAM DUNN MEDICAL RECORD: [id number] :60 LOCATION:D.CAT ADMISSION DATE: SURGEON: ARPITA ROMAN MD DATE OF OPERATION: 06/22/2018 PROCEDURES: 1. PTCA stent LAD. 2. Left heart catheterization. 3. Selective coronary angiography. 4. Vein graft angiography. 5. Intravascular ultrasound. INDICATION: Angina and coronary artery disease. PROCEDURE IN DETAIL: After informed consent was obtained and after a detailed description of risks, benefits as well as alternative therapies, the patient elected to proceed with angiogram and angioplasty. The right femoral area was prepped and draped in normal sterile fashion. Right femoral artery was cannulated via modified Seldinger technique with placement of 6-Guyanese sheath. All catheters exchanged through this sheath. FINDINGS: Left ventriculogram was performed in standard 30-degree CAMPOS view, reveals good cardiac wall motion throughout all segments. Overall ejection fraction estimated 60%. SELECTIVE CORONARY ANGIOGRAPHY: 1. Left main is with no significant angiographic disease. 2. Left anterior descending has previously placed stents. Intravascular ultrasound reveals that there is greater than 85% in-stent restenosis in the mid vessel. 3. The left circumflex has a high-grade lesion in the mid vessel. 4. Vein graft to the distal circumflex is patent. The distal circumflex itself is widely patent as well. 5. There is a greater than 80% stenosis of the right coronary artery in the mid vessel. 6. Vein graft to the right coronary artery is widely patent. Distal right coronary artery is widely patent. PTCA STENT OF THE LAD: The stent used was a 3.0 x 22 mm Irmo. Result was 0% residual stenosis. OVERALL IMPRESSION: Successful percutaneous transluminal coronary angioplasty stent of the left anterior descending going from greater than 85% initial stenosis that was in-stent restenosis to 0% residual stenosis. TRANSINT:[id number] Voice Confirmation ID: [id number] DOCUMENT ID: [id number] OPERATIVE REPORT [id number] BAM DUNN JEFFREY MD at 1211 CC: [id number] DICTATION DATE: 06/22/18 0957 EARLY INTERVENTION SCHOOL PSYCHOLOGIST: 06/22/18 1035 DEP CLI 06/22/18 [place] [address]
== END 2018-06-22 14:10 | disposition home or self-care (01) ==
LOC: D.CATH 07:53
PROVIDERS: Internal Medicine Interventional Cardiology
DX: I25.110 Atherosclerotic heart disease of native coronary artery with unstable angina pectoris (principal)

== ENCOUNTER → 2018-10-25 09:35 | Outpatient (CLI) | payer MEDICAID | END | disposition home or self-care (01) | LOC: D.HCCARDIO 09:35 | DX: I25.10 Atherosclerotic heart disease of native coronary artery without angina pectoris (principal) ==

== ENCOUNTER → 2019-05-31 07:08 | Outpatient (CLI) | payer MEDICAID ==
[2018-06-22 07:55] VITALS: BMI 30.3
[2019-05-31 07:54] LABS: ALBUMIN 3.6 g/dL (3.4-5.0); BILIRUBIN - DIRECT 0.11 mg/dL (0.00-0.30); BILIRUBIN - INDIRECT 0.3 mg/dL (0.00-1.00); BILIRUBIN - TOTAL 0.41 mg/dL (0.2-1.3); PROTEIN - SERUM 7.4 g/dL (6.4-8.2)
== END | disposition home or self-care (01) ==
LOC: D.US 07:08
PROVIDERS: ATTEND Internal Medicine Gastroenterology
DX: K76.0 Fatty (change of) liver, not elsewhere classified (principal)

== ENCOUNTER 2019-06-22 14:32 | Inpatient (IN) | payer MEDICAID ==
[~2019-06-22] VITALS: Ht 180.3 cm; Wt 97.2 kg
[2019-06-22 15:09] LABS: BASOPHILS 0.4 % (0-2); EOSINOPHILS 1.4 % (0-7); HEMATOCRIT 45.5 % (42.0-54.0); HEMOGLOBIN 16.1 g/dL (13.5-17.5); IMMATURE GRANULOCYTES 0.2 % (0-5); LYMPHOCYTES 48.7 % (15-50); MCH 29.5 pg (26.0-34.0); MCHC 35.4 g/dL (31.0-37.0); MCV 83.5 fL (80.0-100.0); MEAN PLATELET VOLUME 9.6 fL (7.4-10.4); MONOCYTES 6.3 % (2-11); PLATELET COUNT 256 10x3/uL (130-400); RBC 5.45 10x6/uL (4.20-6.10); WBC 10.5 10x3/uL (4.8-10.8)
[2019-06-22 15:20] LABS: APTT 29.3 SECONDS (22.8-39.4); INR 0.89 (0.85-1.17); PROTIME 12.1 SECONDS (11.6-15.0)
[2019-06-22 15:22] LABS: CALC OSMOLALITY 282 mosm/kg (275-300); CALCIUM 8.8 mg/dL (8.5-10.1); CARBON DIOXIDE 23.5 mmol/L (21.0-32.0); CHLORIDE - SERUM 104 mmol/L (98-107); CREATININE - SERUM 1.4 mg/dL (0.6-1.3); GLUCOSE 96 mg/dL (74-106); POTASSIUM - SERUM 3.4 mmol/L (3.5-5.1); SODIUM 139 mmol/L (136-145); UREA NITROGEN 26 mg/dL (7-18); eGFR NON AFRICAN AMERICAN 55 mL/min (90-120)
[2019-06-22 15:39] LABS: ALBUMIN 3.6 g/dL (3.4-5.0); ALKALINE PHOSPHATASE 77 U/L (30-120); ALT (SGPT) 25 U/L (10-68); BILIRUBIN - TOTAL 0.28 mg/dL (0.2-1.3); CKMB 0.9 U/L (0.0-3.6); CREATINE KINASE 76 UL (21-232); PRO BNP 55 pg/mL (0-125); PROTEIN - SERUM 7.3 g/dL (6.4-8.2)
[2019-06-22 15:40] LABS: TROPONIN-I < 0.017 ng/mL (0.000-0.060)
[2019-06-22 18:24] VITALS: BP 143/94; BMI 28.9
--- NOTE | 2019-06-22 20:21 | NUR ---
REPORT RECIEVD AND ROUNDING COMPLETE. PATIENT LAYING IN BED IN LOW BENSON S WATCHING TV. PATIENT STATES HE ONLY USES O2 WHEN HE NNEDS IT AT HOME. NOT CURRENTLY WEARING O2, PATIENT ALSO STATES HE DOES NOT HAVE A PHONE IN HIS ROOM. WILL LOOK INTO GETTING PATIENT A PHONE FOR HIS ROOM. PATIENT HAS A RIGHT HAND PIV THAT IS SALINE LOCKED AT THIS TIME. PATIENT STATE HE HAS NO OTHER NEEDS AT THIS TIME. CALL LIGHT WIIN REACH AND BED IN LOWEST LOCKED POSITION.
[2019-06-22 20:29] VITALS: BP 134/86
[2019-06-23 01:24] VITALS: BP 121/87
--- NOTE | 2019-06-23 03:11 | NUR ---
PATIENT REQUESTED A SNACK, GAVE PATIENT PUDDING, PENNY CRACKERS AND PEANUT BUTTER AND ORANGE JUICE. NO OTHER NEEDS AT THIS TIME
[2019-06-23 04:59] VITALS: BP 148/92
[2019-06-23 05:12] LABS: BASOPHILS 0.1 % (0-2); EOSINOPHILS 0 % (0-7); HEMATOCRIT 45.9 % (42.0-54.0); IMMATURE GRANULOCYTES 0.2 % (0-5); LYMPHOCYTES 14.6 % (15-50); MCH 29.3 pg (26.0-34.0); MCHC 34.9 g/dL (31.0-37.0); MCV 84.1 fL (80.0-100.0); MEAN PLATELET VOLUME 10.3 fL (7.4-10.4); NEUTROPHILS 84.1 % (40-80); PLATELET COUNT 259 10x3/uL (130-400); RBC 5.46 10x6/uL (4.20-6.10); RDW 13.9 % (11.5-14.5); WBC 11.6 10x3/uL (4.8-10.8)
--- NOTE | 2019-06-23 05:33 | NUR ---
I have reviewed this patient and I concur with the Shift Assessment completed by the Licensed Practical Nurse today this shift.
[2019-06-23 05:36] LABS: ALBUMIN 3.3 g/dL (3.4-5.0); ANION GAP 13.3 mmol/L (8-16); BILIRUBIN - TOTAL 0.29 mg/dL (0.2-1.3); CARBON DIOXIDE 24.2 mmol/L (21.0-32.0); CREATININE - SERUM 1.5 mg/dL (0.6-1.3); POTASSIUM - SERUM 3.5 mmol/L (3.5-5.1); PROTEIN - SERUM 7.3 g/dL (6.4-8.2)
--- NOTE | 2019-06-23 07:20 | NUR ---
RECIEVE REPORT. RESTING IN BED WITH EYES CLOSED. NO SIGNS OF DISTRESS. CONTINUE PLAN OF CARE AND SAFETY PRECAUTIONS.
[2019-06-23 09:50] VITALS: BP 129/85
[2019-06-23 14:15] VITALS: BP 138/94
[2019-06-23 15:24] VITALS: Ht 180.3 cm; Wt 97.2 kg
[2019-06-23 18:32] VITALS: BP 127/83
--- NOTE | 2019-06-23 19:26 | NUR ---
PT ALERT AND AWAKE DENIES NEEDS AT THIS TIME BED IS LOW AND LOCKED PT HAS CALL LIGHT
[2019-06-23 20:00] VITALS: BP 112/71
[2019-06-24] VITALS: BP 113/70
[2019-06-24 04:00] VITALS: BP 103/67
[2019-06-24 05:12] LABS: ANION GAP 12.7 mmol/L (8-16); CALCIUM 8.7 mg/dL (8.5-10.1); CARBON DIOXIDE 27.2 mmol/L (21.0-32.0); CREATININE - SERUM 1.4 mg/dL (0.6-1.3); POTASSIUM - SERUM 3.9 mmol/L (3.5-5.1)
[2019-06-24 05:34] LABS: HEMATOCRIT 46.5 % (42.0-54.0); HEMOGLOBIN 15.6 g/dL (13.5-17.5); MCH 28.9 pg (26.0-34.0); MCHC 33.5 g/dL (31.0-37.0); MCV 86.3 fL (80.0-100.0); MEAN PLATELET VOLUME 9.8 fL (7.4-10.4); PLATELET COUNT 293 10x3/uL (130-400); RBC 5.39 10x6/uL (4.20-6.10); RDW 14.7 % (11.5-14.5); WBC 24.7 10x3/uL (4.8-10.8)
[2019-06-24] MEDS ORDERED: MEDROL DOSE PACK4 MG PO (09:13)
[2019-06-24] MEDS ORDERED: DOXYCYCLINE HY100 M2 PO (09:14)
--- NOTE | 2019-06-24 09:39 | NUR ---
UPON ADMIT, PATIENT HAS NOT HAD A FLU SHOT. REFUSES IT AT DISCHARGE.
[2019-06-24 09:54] VITALS: BP 110/78
[2019-06-24 10:16] LABS: LYMPHOCYTES 8 % (15-50); MONOCYTES 7 % (2-11); NEUTROPHILS 81 % (40-80); PLATELET ESTIMATE NORMAL
[2019-06-24 10:17] LABS: ANISOCYTOSIS OCC; PLATELET MORPHOLOGY PLT CLUMPS PRESENT; ROULEAUX OCC
--- NOTE | 2019-06-24 10:43 | NUR ---
ALERT AND ORIENTED X4. SITTING UP IN BED. DISCHARGE INSTRUCTIONS GIVEN VERBALLY AND WRITTEN. DISCHARGE PAPERS SIGNED ON CHART. DC RT HAND IV TIP INTACT. ESCORT TO RIDE VIA WHEELCHAIR. REMAINS FREE FROM INJURY.
--- NOTE | 2019-06-24 16:49 | MORECARE ---
CASE MANAGEMENT DISCHARGE SUMMARY PATIENT: BAM DUNN UNIT: [id number] ADM DATE: 06/22/19 AGE: 58 : 60 SEX: M ROOM/BED: D.2106 AUTHOR: CHAO SHAFER PHYSICIAN: REFERRING PHYSICIAN: DALTON FRENCH MD DATE OF SERVICE: 06/24/19 Discharge Plan Patient Name: BAM DUNN [facility] [facility] 1960 Planned Disposition: Home Anticipated Discharge Date: 06/24/19 Discharge Date: 06/24/2019 Expected LOS: 2 Initial Reviewer: [email or web address] Initial Review Date: 06/24/2019 Generated: 06/24/19 5:48 pm DCPIA - Discharge Planning Initial Assessment Updated by [email or web address]: Rajeev Dubon on 06/24/19 4:48 pm * Is the patient Alert and Oriented? Yes * How many steps to enter\exit or inside your home? RAMP * PCP DR. TEJEDA * Pharmacy [facility] * Preadmission Environment Home Alone * ADLs Independent * Equipment Nebulizer Other Oxygen * Other Equipment BLOOD PRESSURE MONITOR HOME AND PORTABLE OXYGEN [facility] - PROVIDER * List name and contact numbers for known caregivers / representatives who currently or will assist patient after discharge: NONE * Verbal permission to speak to the caregivers and representatives has been obtained from the patient. No * Community resources currently utilized None * Please name any agencies selected above. NONE * Additional services required to return to the preadmission environment? No * Can the patient safely return to the preadmission environment? Yes * Has this patient been hospitalized within the prior 30 days at any hospital? No Patient Name: BAM DUNN Page [id number] at 1649 All edits/amendments must be made on the electronic document DICTATION DATE: 06/24/191647 SANDER SETTER: MARTHA 06/24/191647 RPT#: [id number] DC DATE:06/24/19 STATUS: DIS IN [facility] [address] [place] [address] END OF REPORT
--- NOTE | 2019-06-24 16:58 | MORECARE ---
CASE MANAGEMENT DISCHARGE SUMMARY PATIENT: BAM DUNN UNIT: [id number] ADM DATE: 06/22/19 AGE: 58 : 60 SEX: M ROOM/BED: D.2106 AUTHOR: SONI,DOC PHYSICIAN: REFERRING PHYSICIAN: DALTON FRENCH MD DATE OF SERVICE: 06/24/19 Discharge Plan Patient Name: BAM DUNN Facility: [facility]:[place] : 1960 Planned Disposition: Home Anticipated Discharge Date: 06/24/19 Discharge Date: 06/24/2019 Expected LOS: 2 Initial Reviewer: [email or web address] Initial Review Date: 06/24/2019 Generated: 06/24/19 5:58 pm Comments DCP- Discharge Planning Updated by [email or web address]: Rajeev Dubon on 06/24/19 3:[address] Patient Name: BAM DUNN Admission Status: ER Accout number: [id number] Admission Date: 06-22-2019 : 1960 Admission Diagnosis: Attending: DALTON FRENCH Current LOS: 2 Anticipated DC Date: 06-24-2019 Planned Disposition: Home Primary Insurance: MEDICAID [place] Discharge Planning Comments: CM MET WITH PT IN ROOM TO DISCUSS DISCHARGE PLANNING AND NEEDS. PT REPORTS LIVING AT HOME INDEPENDENTLY AND ALONE. PT HAS BLOOD PRESSURE MONITOR, NEBULIZER AND HOME AND PORTABLE OXYGEN FROM [facility] PATIENT. PT HAS NO OUTSIDE SERVICES ASSISTING IN THE HOME. CM DISCUSSED AVAILABILITY OF HOME HEALTH, REHAB SERVICES AND MEDICAL EQUIPMENT. PT DENIES DISCHARGE NEEDS, REPORTS HE WILL CALL A FRIEND TO PICK HIM UP FOR DISCHARGE HOME. SPRAY PAINTER HELPER NURSE NOTIFIED. Hearing Impaired Itinerant Teacher: Rajeev Dubon DCPIA - Discharge Planning Initial Assessment Updated by [email or web address]: Rajeev Dubon on 06/24/19 4:48 pm * Is the patient Alert and Oriented? Yes * How many steps to enter\exit or inside your home? RAMP * PCP DR. TEJEDA * Pharmacy [facility] * Preadmission Environment Home Alone * ADLs Independent * Equipment Nebulizer Other Oxygen * Other Equipment BLOOD PRESSURE MONITOR HOME AND PORTABLE OXYGEN [facility] PATIENT - PROVIDER * List name and contact numbers for known caregivers / representatives who currently or will assist patient after discharge: NONE * Verbal permission to speak to the caregivers and representatives has been obtained from the patient. No * Community resources currently utilized None * Please name any agencies selected above. NONE * Additional services required to return to the preadmission environment? No * Can the patient safely return to the preadmission environment? Yes * Has this patient been hospitalized within the prior 30 days at any hospital? No Last DP export: 06/24/19 3:49 p Patient Name: BAM DUNN Page 17566 at 1658 All edits/amendments must be made on the electronic document DICTATION DATE: 06/24/191657 CAR REPOSSESSOR: MARTHA 06/24/191657 RPT#: [id number] DC DATE:06/24/19 STATUS: DIS IN [facility] [address] [place] [address] END OF REPORT
== END 2019-06-24 11:18 | disposition home or self-care (01) | DRG 192 ==
LOC: D.ER 14:32 → D.M2 16:11
PROVIDERS: Family Medicine; ADMIT Family Medicine; ATTEND Family Medicine
DX: J44.1 Chronic obstructive pulmonary disease with (acute) exacerbation (principal); I10 Essential (primary) hypertension; I25.10 Atherosclerotic heart disease of native coronary artery without angina pectoris; K21.9 Gastro-esophageal reflux disease without esophagitis; Z87.891 Personal history of nicotine dependence; Z95.1 Presence of aortocoronary bypass graft; Z95.5 Presence of coronary angioplasty implant and graft

== ENCOUNTER 2020-10-03 16:57 | Observation (INO) | payer OTHER ==
[~2020-10-03] VITALS: Ht 180.3 cm; Wt 109.5 kg
[~2020-10-03 16:57] MED LIST changes: +DOXYCYCLINE HY100 M2 PO
[2020-10-03 17:20] VITALS: BP 138/91
--- NOTE | 2020-10-03 17:22 | NUR ---
PT WITH CHEST PAIN THAT BEGAN AFTER NOON. NITRO AND ASA GIVEN PER MD ORDERS. WILL BE ADMITTED. VSS AND CALL LIGHT IN REACH. AFTER NITRO PT STATES HE DOES FEEL SOME RELIEF.
[2020-10-03 17:26] LABS: BASOPHILS 0.2 % (0-2); EOSINOPHILS 1.6 % (0-7); HEMATOCRIT 46.9 % (42.0-54.0); HEMOGLOBIN 16.2 g/dL (13.5-17.5); IMMATURE GRANULOCYTES 0.1 % (0-5); LYMPHOCYTE ABS# 3.57 10x3/uL (1.32-3.57); LYMPHOCYTES 44.3 % (15-50); MCH 28.5 pg (26.0-34.0); MCHC 34.5 g/dL (31.0-37.0); MCV 82.4 fL (80.0-100.0); MEAN PLATELET VOLUME 9.7 fL (7.4-10.4); MONOCYTES 7.9 % (2-11); NEUTROPHIL ABS# 3.69 10x3/uL (1.78-5.38); NEUTROPHILS 45.9 % (40-80); PLATELET COUNT 242 10x3/uL (130-400); RBC 5.69 10x6/uL (4.20-6.10); RDW 14.5 % (11.5-14.5); WBC 8.1 10x3/uL (4.8-10.8)
--- NOTE | 2020-10-03 17:27 | NUR ---
SECOND NITRO GIVEN. PT STATES THE CHEST PAIN HIT HIM AGAIN.
[2020-10-03 17:30] VITALS: BP 104/79
[2020-10-03 17:35] LABS: CALC OSMOLALITY 279 mosm/kg (275-300); CALCIUM 9.2 mg/dL (8.5-10.1); CARBON DIOXIDE 22.4 mmol/L (21.0-32.0); CHLORIDE - SERUM 103 mmol/L (98-107); CREATININE - SERUM 1.9 mg/dL (0.6-1.3); GLUCOSE 105 mg/dL (74-106); POTASSIUM - SERUM 4.3 mmol/L (3.5-5.1); SODIUM 138 mmol/L (136-145); UREA NITROGEN 24 mg/dL (7-18); eGFR NON AFRICAN AMERICAN 39 mL/min (90-120)
[2020-10-03 17:36] LABS: APTT 22.7 SECONDS (22.8-39.4); INR 1.02 (0.85-1.17); PROTIME 12.4 SECONDS (11.6-15.0)
[2020-10-03 17:50] VITALS: BP 147/91
[2020-10-03 17:51] LABS: ALBUMIN 3.6 g/dL (3.4-5.0); ALKALINE PHOSPHATASE 99 U/L (30-120); ALT (SGPT) 32 U/L (10-68); BILIRUBIN - TOTAL 0.38 mg/dL (0.2-1.3); CKMB 1.6 U/L (0.0-3.6); CREATINE KINASE 172 UL (21-232); MAGNESIUM - SERUM 2.2 mg/dL (1.8-2.4); PROTEIN - SERUM 7.8 g/dL (6.4-8.2)
[2020-10-03 18:03] LABS: TROPONIN-I < 0.017 ng/mL (0.000-0.060)
[2020-10-03 18:44] VITALS: BP 125/87
--- NOTE | 2020-10-03 18:45 | NUR ---
PT STATES ZOFRAN AND MORPHINE HAVE BEEN EFFECTIVE AND HELPED HIM. HIS CHEST PAIN IS LESS AND HIS ARM PAIN IS A 5/10.
--- NOTE | 2020-10-03 19:51 | NUR ---
PT ARRIVED FROM ER AND PLACED IN ROOM 2116. ALERT/ORIENTED/AMBULATORY. ORIENTED TO ROOM/SAFETY/PLAN OF CARE. CALL LIGHT IN REACH.
[2020-10-03 21:04] VITALS: BP 135/89
[2020-10-04 00:32] LABS: CKMB 1.5 U/L (0.0-3.6); CREATINE KINASE 136 UL (21-232)
[2020-10-04 00:34] LABS: TROPONIN-I < 0.017 ng/mL (0.000-0.060)
[2020-10-04 01:28] VITALS: BP 125/87; Ht 180.3 cm; Wt 109.5 kg
[2020-10-04 01:57] VITALS: BP 119/77
[2020-10-04 06:02] LABS: HEMATOCRIT 44.9 % (42.0-54.0); HEMOGLOBIN 15.2 g/dL (13.5-17.5); LYMPHOCYTE ABS# 3.54 10x3/uL (1.32-3.57); MCH 28.1 pg (26.0-34.0); MCHC 33.9 g/dL (31.0-37.0); MCV 83.1 fL (80.0-100.0); MEAN PLATELET VOLUME 10.4 fL (7.4-10.4); NEUTROPHIL ABS# 2.51 10x3/uL (1.78-5.38); PLATELET COUNT 257 10x3/uL (130-400); RDW 14.7 % (11.5-14.5); WBC 6.8 10x3/uL (4.8-10.8)
[2020-10-04 06:10] VITALS: BP 120/83
[2020-10-04 06:33] LABS: CALC OSMOLALITY 285 mosm/kg (275-300); CALCIUM 8.8 mg/dL (8.5-10.1); CARBON DIOXIDE 25.9 mmol/L (21.0-32.0); CHLORIDE - SERUM 104 mmol/L (98-107); CKMB 1.5 U/L (0.0-3.6); CREATINE KINASE 146 UL (21-232); CREATININE - SERUM 1.8 mg/dL (0.6-1.3); GLUCOSE 102 mg/dL (74-106); SODIUM 141 mmol/L (136-145); UREA NITROGEN 26 mg/dL (7-18); eGFR NON AFRICAN AMERICAN 41 mL/min (90-120)
[2020-10-04 06:38] LABS: POTASSIUM - SERUM 3.5 mmol/L (3.5-5.1); TROPONIN-I < 0.017 ng/mL (0.000-0.060)
[2020-10-04 06:51] LABS: EOSINOPHILS 1 % (0-7); LYMPHOCYTES 67 % (15-50); NEUTROPHILS 32 % (40-80); PLATELET ESTIMATE NORMAL
--- NOTE | 2020-10-04 07:00 | NUR ---
RECEIVED REPORT. ASSUMED CARE OF PATIENT. RESTING IN BED WITH EYES OPEN, ASKING IF THEY HAVE FIGURED OUT WHAT IS WRONG WITH HIM YET. EDUCATION PROVIDED. CALL LIGHT WITHIN REACH. WHITE BOARD UPDATED, BEDSIDE SHIFT REPORT COMPLETE. NO DISTRESS. SR ON TELEMETRY.
--- NOTE | 2020-10-04 07:29 | NUR ---
MEDICATED FOR COMPLAINTS OF CHEST PAIN 5/10 AT THIS TIME. DESCRIBES PAIN AT MULITPLE FOCAL POINTS IN CHEST. CALL DANIEL MATAMOROS SR ON TELEMETRY.
[2020-10-04 07:36] VITALS: BP 124/86
[2020-10-04 11:20] VITALS: BP 116/74
[2020-10-04 12:08] LABS: CKMB 1.4 U/L (0.0-3.6); CREATINE KINASE 138 UL (21-232); TROPONIN-I < 0.016 ng/mL (0.000-0.060)
--- NOTE | 2020-10-04 14:49 | NUR ---
20 GAUGE IV REMOVED FROM RIGHT HAND, CATHETER TIP INTACT, NO BLEEDING FROM SITE. 2X2 GAUZE APPLIED AND SECURED WITH BANDAID. RIG MECHANIC REMOVED AND RETURNED TO [employer]. PATIENT IS DRIVING SELF HOME HE DROVE HIMSELF TO THE HOSPITAL. PATIENT CURRENTLY WAITING DISCHARGE INSTRUCTIONS.
--- NOTE | 2020-10-04 15:03 | NUR ---
DISCHARGE INSTRUCTIONS PROVIDED TO PATIENT. PATIENT VERBALIZED UNDERSTANDING OF ALL INSTRUCTIONS PROVIDED. PATIENT DROVE HIMSELF TO THE HOSPITAL. PATIENT DISCHARGED TO HOME VIA SELF AT THIS TIME. PATIENT THANKED THIS SERVICE SPRINKLER HELPER FOR ALL CARES PROVIDED. PATIENT LEFT UNIT WITH ALL PERSONAL BELONGINGS. NO DISTRESS UPON LEAVING UNIT AT THIS TIME.
--- NOTE | 2020-10-05 08:00 | CN ---
PATIENT NAME:BAM DUNN MEDICAL RECORD: [id number] : 60 LOCATION:D. D.[id number] ADMIT DATE: 10/03/20 ACCOUNT: [id number] CONSULTING PHYSICIAN: HUMBERTO BURGOS MD REFERRING PHYSICIAN: DALTON FRENCH MD DATE OF CONSULTATION: 10/04/2020 HISTORY OF PRESENT ILLNESS: 60-year-old gentleman with a known history of coronary artery disease, status post intervention, history of hypertension, obstructive pulmonary disease, admitted with chest pain, somewhat atypical, waxing and waning. No EKG changes. Cardiac enzymes were negative. Underwent angiography via Dr. Brock iqbal in April of 2020 with patent stents. No progression of [place] disease. Typically maintained on combination of nitrates, calcium channel amador, beta amador. We were asked to see him concerning his cardiovascular status. PAST MEDICAL HISTORY: Includes; 1. History of hypertension. 2. Hyperlipidemia. 3. Coronary artery disease as described above. 4. Obstructive pulmonary disease. ALLERGIES: None known. MEDICATIONS: Currently include Proventil 2.5 q.6, Plavix 75 every day, pravastatin 10 at bedtime, Imdur 60 mg p.o. every day, metoprolol 50 every day, nifedipine 60 b.i.d., aspirin 81 every day, amitriptyline 25 at bedtime, HCTZ 25 every day, Dulera 2 puffs b.i.d. SOCIAL HISTORY: Nonsmoker, nondrinker. No set of exercise program. REVIEW OF SYSTEMS: The patient reports easy bruising but reports no swollen glands. The patient reports no fever, no night sweats, no significant weight gain, no significant weight loss. No significant exercise tolerance. The patient reports no dry eyes, no irritation, no vision change. Patient reports no difficulty hearing and no ear pain. Patient reports no frequent nose bleeds or nose and sinus problems. Patient reports on arm pain on exertion. No shortness of breath while lying down. No history of heart murmur. Patient reports no cough, no wheezing or coughing up blood. Patient reports no abdominal pain, no vomiting. Normal appetite. No diarrhea and not vomiting blood. No nausea and no constipation. Patient reports no incontinence. No difficulty urinating. No hematuria. No increased frequency. Patient reports no muscle aches. No weakness, no arthralgias, no back pain. No swelling of the extremities. Patient reports no abnormal mole, no jaundice, no rashes. Reports no loss of consciousness. No weakness and no numbness. No seizures, dizziness, or headaches. The patient reports no depression, no sleep disturbance, feeling safe in a relationship and no alcohol abuse. Patient reports on fatigue. Reports no runny nose or sinus pressure. No itching, no hives, and no frequent sneezing. PHYSICAL EXAMINATION: GENERAL: No acute distress, appears stated age. VITAL SIGNS: Blood pressure 124/86, pulse 81 and regular. HEENT: Normocephalic, atraumatic. NECK: No JVD, no carotid bruit. CONSULT REPORT [id number] BAM DUNN CARDIOVASCULAR: Heart is regular. LUNGS: Good air excursion. ABDOMEN: Soft and nontender. EXTREMITIES: Pulses 2+. No edema. DIAGNOSTIC DATA: EKG is without acute change. IMPRESSION: At this point in time, no evidence of ongoing acute ischemia. I would add Ranexa for possible small vessel disease, although I am not entirely convinced that this is ongoing ischemic at this point. No contraindication to discharge from my standpoint. He will be seen back for routine office visit. TRANSINT:[id number] Voice Confirmation ID: [id number] DOCUMENT ID: [id number] HUMBERTO BURGOS MD at 0800 CC: [id number] DICTATION DATE: 10/04/20943 FARMHAND: 10/04/201955 DIS IN 10/04/20 [id number] [place] [address]
== END 2020-10-04 15:05 | disposition home or self-care (01) ==
LOC: D.ER 16:57 → D.M2 19:11 → OBSVTIME 19:11 → D.M2 10-04 15:05
PROVIDERS: Family Medicine; ADMIT Family Medicine; ATTEND Family Medicine
DX: I20.0 Unstable angina (principal); R07.9 Chest pain, unspecified; N18.9 Chronic kidney disease, unspecified; K21.9 Gastro-esophageal reflux disease without esophagitis; J44.9 Chronic obstructive pulmonary disease, unspecified; E78.5 Hyperlipidemia, unspecified; R06.02 Shortness of breath; I12.9 Hypertensive chronic kidney disease with stage 1 through stage 4 chronic kidney disease, or unspecified chronic kidney disease